=== PATIENT | male | born 1965 | race Caucasian/White ===

== ENCOUNTER → 2016-10-08 | Outpatient (CLI) | payer OTHER ==
[~2016-10-08] MED LIST: ACET-1311 PO; BISA10SU38 PR; CEPH500C2 PO; CITA20TA9 PO; CMD/25 PO; CMD25 PO; CTP/1 PO; FAMO20TA11 PO; FOLIC ACID PO; LEVA45AE INH; LISI-725 PO; MOML PO; OXY IR PO; OXYC30TA PO; POLY335019 PO; QUET1TAB37 PO; SENN-61 PO; SODIENE PR; VIT B PO
--- NOTE | 2016-10-08 13:41 | DIAGNOSTIC IMAGING REPORT ---
VIDEO SWALLOW STUDY CLINICAL HISTORY: Pharyngeal dysphagia. COMPARISON STUDY: No priors. Fluoroscopy time: 1.8 minutes. FINDINGS: Fluoroscopic guidance was provided to the Department of Speech Pathology in performing a video swallow study. The patient consumed barium-impregnated pudding, cracker with paste, nectar thick liquid, and thin barium while the swallowing mechanism was observed in real-time. Silent aspiration was seen with thin barium. No penetration or aspiration was seen with the remaining sampled textures. Extensive cervical spinal fusion hardware is noted. IMPRESSION: 1. Silent aspiration was seen with thin barium. 2. No penetration or aspiration was seen with the remaining sampled textures. 3. See dedicated Speech Pathology report for detailed findings and recommendations. Dictated: 10/08/2016 1:10 PM Transcribed: 10/08/2016 1:40 PM BELLE_New Electronically signed by: Eddie Austin M.D. 10/08/2016 2:10 PM Dictated Date/Time: 10/08/2016 1:10 PM
--- NOTE | 2016-10-08 16:59 | SWALLOWING EVALUATION ---
HISTORY: This 51 year old man, from [facility], was referred for a video swallow study at [facility] in order to rule out aspiration and identify the safest consistencies for optimal oral intake. PMH is significant for: Acute and chronic respiratory failure, septic pulmonary embolism, hypertension, discitis of the cervicothoracic region, depression, osteomyelitis of the vertebrae, and endocarditis. The patient reports having been intubated s/p "an infection through my whole body" ~ 8 weeks ago. He is s/p trach and currently uses a PEG tube for meeting his nutrition and hydration needs. Trach site is fully healed, and he reports having the trach removed at least 2 weeks ago. He reports having significant swallowing difficulties following these events and had a previous speech therapy with [facility] and a video swallow study (patient was uncertain where the study took place) stating he failed. Despite being NPO, he admits he has been "sneaking" food and liquid and states he has not been having any trouble swallowing as of late. PROCEDURE: The patient was seen in the Radiology Department of [facility] for the VFSS. Cursory examination of the oral cavity revealed adequate dentition. Oral motor function was wnl. The patient was seated in a wheelchair and was viewed in both the Anterior-Posterior (A-P) and Lateral planes. Volitional phonation exercises completed in the A-P plane revealed bilateral vocal fold movement and vocal intensity within functional limits. In the lateral plane, the patient was given the following boluses: 1 tsp. thin liquid barium x 2, single swallow thin liquid barium self-presented from a cup, sequential swallows of thin liquid barium self-presented from a cup and straw, 1 tsp. nectar-thick liquid barium, single swallow nectar-thick liquid barium self-presented from a cup, 1 tsp. barium pudding, and 1 club cracker coated in barium pudding. Cervical hardware was present. The patient was then repositioned into the A-P plane and given the following boluses: 1 tsp. nectar thick barium and 1 tsp. barium pudding. RESULTS: Oral Stage: Lip closure was mildly reduced with one episode of escape that did not progress past the raya boarder. The patient was able to maintain a cohesive bolus during the liquid bolus hold task. Mastication was timely and efficient. Lingual motion for bolus transport was brisk. There was trace retention lining the tongue and palate after the swallow. The initiation of the pharyngeal swallow was timely and occurred when the bolus head reached the posterior angle of the ramus. Pharyngeal Stage: Soft palate elevation was complete. Laryngeal elevation revealed partial superior movement of the thyroid cartilage and partial approximation of the arytenoids to the epiglottic base. Anterior hyoid excursion was partially reduced. Epiglottic deflection was incomplete, with instances where it did not invert past the horizontal position. Laryngeal vestibular closure was incomplete, as evidenced by a narrow column of contrast being located in the vestibule at the height of the swallow. The pharyngeal stripping wave was present yet diminished. There was partial distention and duration of the opening to the pharyngoesophageal segment (PES). Tongue base retraction was reduced, with a wide column of contrast located between the tongue base and pharyngeal wall during the swallow. There was retention located in the valleculae and pyriforms after the swallow. The patient presented with one episode of SILENT aspiration during the study. This occurred during the second teaspoon presentation of thin liquid with a bolus hold task. Verbal cues to cough on command were provided and appeared to be effective in clearing the aspiration. Episodes of small amounts of laryngeal penetration were also noted with thin liquid, without aspiration. No other laryngeal penetration/aspiration episodes were evidenced. With regard to retention, the patient would elicit a second swallow and/or use of liquid wash to clear vallecular and pyriform retention, which was effective. He was impulsive at times taking large consecutive swallows. Aspiration is attributed to the patient's generalized weakness and reduced ROM of the pharyngeal mechanism, specifically to epiglottic deflection, tongue base retraction, anterior hyoid excursion, and PES opening. Esophageal stage: There was complete esophageal clearance. SUMMARY/RECOMMENDATIONS: This patient presents with mild to moderate tracey-pharyngeal dysphagia. The following is recommended: 1. Advance diet to mechanical soft and thin liquids. May upgrade further to regular textures as tolerated. 2. Aspiration precautions, Straws OK. Fully upright while eating and 30 minutes after meals. 3. Safe swallow strategies: Small single sips. Alternate solids and liquids. Monitor for impulsivity. 4. Follow up [facility] services at the [facility]. Services to include carryover of diet and safe swallow strategy recommendations above, as well as completion of pharyngeal strengthening exercises (Daphney Maneuver, effortful swallows, Ananda Maneuver) for improved strength and reducing aspiration risk. A summary of the results and recommendations was discussed with the patient and treating [facility] at [facility] immediately following the study with verbal understanding. A summary of the result was also documented on the consultation record as provided by the facility, and given to the patient as well. Thank you for referral of this patient. Please contact me at if any additional information is needed.
--- NOTE | 2016-11-08 09:59 | CODING QUERY NO DIAGNOSIS ---
TREATMENT RENDERED WITHOUT A DIAGNOSIS To promote full compliance with coding requirements relating to patient care, physician participation is requested in all cases of glass wool blanket machine feeder uncertainty. Please assist us with providing a diagnosis/symptom for the test(s) below: A diagnosis/symptom was not documented on your Order. A valid diagnosis/symptom is required to bill all insurances. Please remember that we are unable to code a diagnosis of rule out, probable, possible, questionable, or suspected. Tests that require a diagnosis: * VIDEO SWALLOW DIAGNOSIS: Provider Signature: Date: Thank you Shilpa Conner [employer] Once completed, please kindly fax back to [phone] For questions please call [phone]
== END | disposition home or self-care (01) ==
LOC: C.RAD 11:13
PROVIDERS: ATTEND Internal Medicine
DX: Z01.89 Encounter for other specified special examinations (principal)

== ENCOUNTER → 2016-10-11 | Outpatient (CLI) | payer OTHER ==
[2016-10-11 08:24] LABS: HEMATOCRIT 26.2 % (42-52); MEAN CELL VOLUME 93.6 fL (80-100); MEAN CORPUSCULAR HEMOGLOBIN 31.4 pg (25-34); MEAN CORPUSCULAR HGB CONC 33.6 g/dl (32-36); MEAN PLATELET VOLUME 9.2 fL (7.4-10.4); PLATELET COUNT 163 K/uL (130-400); WHITE BLOOD COUNT 3.73 K/uL (4.8-10.8)
[2016-10-11 08:33] LABS: ALT/SGPT 77 U/L (12-78); BLOOD UREA NITROGEN 23 mg/dl (7-18); BUN/CREATININE RATIO 22.7 (10-20); CALCIUM 8.6 mg/dl (8.5-10.1); CARBON DIOXIDE 23 mmol/L (21-32); CHLORIDE 110 mmol/L (98-107); GLUCOSE 86 mg/dl (70-99); POTASSIUM 3.8 mmol/L (3.5-5.1); SODIUM 139 mmol/L (136-145)
[2016-10-11 08:35] LABS: ALB/GLOB RATIO 0.4 (0.9-2); ALKALINE PHOSPHATASE 128 U/L (45-117); AST/SGOT 50 U/L (15-37)
== END ==
LOC: C.LABCC 07:56
PROVIDERS: ATTEND Internal Medicine
DX: R78.81 Bacteremia (principal); B95.61 Methicillin susceptible Staphylococcus aureus infection as the cause of diseases classified elsewhere

== ENCOUNTER → 2016-10-15 | Outpatient (CLI) | payer OTHER ==
[2016-10-15 12:30] LABS: COMPLETE YES; HEMATOCRIT 27.6 % (42-52); IG% 0.8 %; LYMPH ABS # 1.28 K/uL (1.2-3.4); MEAN CELL VOLUME 97.2 fL (80-100); MEAN CORPUSCULAR HEMOGLOBIN 31.7 pg (25-34); MEAN CORPUSCULAR HGB CONC 32.6 g/dl (32-36); MEAN PLATELET VOLUME 9.1 fL (7.4-10.4); NEUT % 56.2 %; PLATELET COUNT 180 K/uL (130-400); RED BLOOD COUNT 2.84 M/uL (4.7-6.1)
[2016-10-15 12:59] LABS: FERRITIN 518.2 ng/ml (8.0-388.0)
== END ==
LOC: C.LABCC 12:53
PROVIDERS: ATTEND Internal Medicine
DX: D64.9 Anemia, unspecified (principal)

== ENCOUNTER → 2016-10-18 | Outpatient (CLI) | payer OTHER ==
[~2016-10-18] MED LIST changes: +OPTIRAY 320 IV PRN
--- NOTE | 2016-10-18 08:12 | DIAGNOSTIC IMAGING REPORT ---
CT OF THE CERVICAL SPINE WITH CONTRAST CLINICAL HISTORY: Follow up spinal cord abscess. COMPARISON STUDY: MRI of the cervical spine January 06, [address] March 16, 2008. TECHNIQUE: Axial images of the cervical spine were obtained following intravenous injection of 91 cc of Optiray 320 IV. Sagittal and coronal reconstructions were viewed. FINDINGS: There are postsurgical findings consistent with a C3-C7 posterior fusion with lateral bone graft material and C4-C5 corpectomy. There is partial incorporation of the strut graft at the corpectomy level. Slight irregularity along the inferior endplate of C3 is likely postsurgical. Evaluation of the central canal and neural foramen is suboptimal given CT technique, particularly given artifact from the hardware. However, no epidural abnormality is identified by CT. Central canal is grossly patent. Disc space narrowing and osteophytosis is noted at C6-C7. There is no prevertebral edema. No abscess is identified within the neck. Epiglottis is normal. No fracture or suspicious lesion is identified within the cervical spine. Visualized portions of the lung apices demonstrate a few small nodular opacities with mild groundglass opacity. In addition, note is made of cortical irregularity with bony erosion of the anterior left first rib at the costochondral junction. There is an associated 1.7 x 1.4 cm rim-enhancing fluid collection shown on image 623 of 650. There is adjacent soft tissue thickening/induration. IMPRESSION: 1. Status post C3-C7 posterior fusion and C4-C5 corpectomy with placement of strut graft. Partial incorporation of the graft. 2. No acute abnormality within the cervical spine by CT. No epidural abnormality identified although sensitivity diminished given CT technique and artifact from surgical hardware. 3. Bony erosion of the anterior left first rib at the costochondral junction with an associated 1.7 x 1.4 cm rim-enhancing fluid collection which favors an abscess. Chronicity of these findings is difficult to determine on this exam but likely acute to subacute. Electronically signed by: Gabo Lozano M.D. 10/18/2016 8:11 AM Dictated Date/Time: 10/18/2016 7:51 AM
== END | disposition home or self-care (01) ==
LOC: C.CTS 06:56
PROVIDERS: ATTEND Specialist
DX: G06.1 Intraspinal abscess and granuloma (principal); R93.7 Abnormal findings on diagnostic imaging of other parts of musculoskeletal system; Z98.1 Arthrodesis status

== ENCOUNTER → 2016-10-20 | Outpatient (CLI) | payer OTHER ==
[~2016-10-20] MED LIST changes: -OPTIRAY 320 IV PRN
[2016-10-20 08:40] LABS: ALT/SGPT 37 U/L (12-78); BLOOD UREA NITROGEN 16 mg/dl (7-18); BUN/CREATININE RATIO 14.4 (10-20); CALCIUM 8.4 mg/dl (8.5-10.1); CARBON DIOXIDE 23 mmol/L (21-32); CHLORIDE 110 mmol/L (98-107); GLUCOSE 89 mg/dl (70-99); POTASSIUM 4.4 mmol/L (3.5-5.1); SODIUM 140 mmol/L (136-145)
[2016-10-20 08:43] LABS: ALB/GLOB RATIO 0.5 (0.9-2); ALKALINE PHOSPHATASE 119 U/L (45-117); AST/SGOT 46 U/L (15-37)
== END | disposition home or self-care (01) ==
LOC: C.LABCC 10:00
PROVIDERS: ATTEND Internal Medicine
DX: I38 Endocarditis, valve unspecified (principal); R78.81 Bacteremia; B95.61 Methicillin susceptible Staphylococcus aureus infection as the cause of diseases classified elsewhere

== ENCOUNTER → 2016-10-21 | Outpatient (CLI) | payer OTHER ==
[2016-10-21 10:18] LABS: ALT/SGPT 110 U/L (12-78); AST/SGOT 62 U/L (15-37); BLOOD UREA NITROGEN 18 mg/dl (7-18); BUN/CREATININE RATIO 16.6 (10-20); CALCIUM 9.1 mg/dl (8.5-10.1); CARBON DIOXIDE 24 mmol/L (21-32); CHLORIDE 105 mmol/L (98-107); GLUCOSE 114 mg/dl (70-99); POTASSIUM 4.3 mmol/L (3.5-5.1); SODIUM 136 mmol/L (136-145)
[2016-10-21 10:19] LABS: ALB/GLOB RATIO 0.5 (0.9-2); ALKALINE PHOSPHATASE 144 U/L (45-117)
== END | disposition home or self-care (01) ==
LOC: C.LABCC 09:18
PROVIDERS: ATTEND Internal Medicine
DX: M46.22 Osteomyelitis of vertebra, cervical region (principal)

== ENCOUNTER → 2016-10-23 | Outpatient (CLI) | payer OTHER ==
[2016-10-23 08:35] LABS: HEMATOCRIT 25.6 % (42-52); LYMPH % 31.5 %; LYMPH ABS # 1.23 K/uL (1.2-3.4); MEAN CELL VOLUME 99.6 fL (80-100); MEAN CORPUSCULAR HEMOGLOBIN 33.9 pg (25-34); MONO % 9.7 %; NEUT % 57.8 %; PLATELET COUNT 172 K/uL (130-400); RED BLOOD COUNT 2.57 M/uL (4.7-6.1)
[2016-10-23 09:09] LABS: COMPLETE YES; SPHEROCYTE 1+
== END ==
LOC: C.LABCC 08:00
PROVIDERS: ATTEND Internal Medicine
DX: D64.9 Anemia, unspecified (principal)

== ENCOUNTER → 2016-10-23 | Outpatient (CLI) | payer OTHER ==
[~2016-10-23] MED LIST changes: +OPTIRAY 320 IV PRN
--- NOTE | 2016-10-23 14:12 | DIAGNOSTIC IMAGING REPORT ---
LUMBAR SPINE CT WITH INTRAVENOUS CONTRAST HISTORY: Low back pain. SPINAL CORD ABSCESS TECHNIQUE: Multiaxial CT images of the lumbar spine were performed following the use of intravenous contrast. COMPARISON STUDY: Lumbar spine radiograph 04/27/2011. FINDINGS: Mild anterior wedging within the superior endplate of L1. This is new from the prior study and is consistent with a compression deformity. This is technically age indeterminate but likely old. No adjacent paravertebral edema to suggest an acute process. No definite acute fractures identified within the lumbar spine. Patchy areas of sclerosis throughout the majority of the L4 vertebral body with focal areas of cortical erosion along the anterior cortex and anterior inferior endplate. Small focal cortical erosion seen within the anterior inferior corner of the L3 vertebral body. Patchy areas of sclerosis and mild endplate irregularity at the L5-S1 level. There are severe disc space narrowing at L5-S1, unchanged. The remaining disc spaces are preserved. Mild paravertebral edema/inflammatory change seen from the L3-S1 levels. Subtle decreased density within the left psoas muscle at these levels may be due to mild edema. There are no paraspinal loculated fluid collections to suggest an abscess. Evaluation for a fluid collection within the central canal is essentially nondiagnostic given the CT technique. However, no definite fluid collections or masses suspected. There is an 11 x 6 x 5 mm focal calcification posterior to the S1 vertebral body. This favors a calcified left paracentral disc extrusion from the L5-S1 level. This abuts the transiting left S1 nerve root and results in mild left-sided central canal narrowing. There is also a broad-based posterior disc bulge at the L5-S1 level. There is moderate bilateral neural foraminal narrowing at L5-S1. IMPRESSION: 1. Mild superior endplate compression deformity at L1. This is technically age indeterminate but likely old. 2. Mild paravertebral edema/inflammatory change from the L3-S1 levels. There is associated patchy sclerosis within the L4 vertebral body with focal areas of cortical erosion within the anterior aspect of the L3 and L4 vertebral bodies as described above. This is consistent with an age-indeterminate osteomyelitis. No paraspinal loculated fluid collections to suggest an abscess. 3. Severe disc space narrowing with endplate irregularity at L5-S1. The endplate irregularity is nonspecific and could be due to long-standing degenerative change or additional site of a age-indeterminate discitis/osteomyelitis given the surrounding paravertebral inflammatory change. 4. Mild edema within the left psoas muscle without a loculated fluid collection to suggest an abscess. 5. 11 x 6 x 5 mm left paracentral calcified disc extrusion at L5-S1 which compresses the transiting left S1 nerve root. No additional epidural abnormalities identified although sensitivity is diminished given CT technique. Electronically signed by: Angel Granado M.D. 10/23/2016 2:11 PM Dictated Date/Time: 10/23/2016 1:56 PM
== END | disposition home or self-care (01) ==
LOC: C.CTS 13:19
PROVIDERS: ATTEND Specialist
DX: M46.20 Osteomyelitis of vertebra, site unspecified (principal)

== ENCOUNTER → 2016-10-24 | Outpatient (CLI) | payer OTHER ==
[~2016-10-24] MED LIST changes: -OPTIRAY 320 IV PRN
[2016-10-24 09:00] LABS: ALKALINE PHOSPHATASE 128 U/L (45-117); ALT/SGPT 96 U/L (12-78); AST/SGOT 53 U/L (15-37)
== END ==
LOC: C.LABCC 08:20
PROVIDERS: ATTEND Internal Medicine
DX: R70.0 Elevated erythrocyte sedimentation rate (principal)

== ENCOUNTER → 2016-10-25 | Outpatient (CLI) | payer OTHER | LOC: C.LABCC 07:53 | PROVIDERS: ATTEND Internal Medicine | DX: R70.0 Elevated erythrocyte sedimentation rate (principal) ==

== ENCOUNTER → 2016-10-31 | Outpatient (CLI) | payer OTHER ==
[2016-10-31 08:36] LABS: HEMATOCRIT 28.3 % (42-52); MEAN CELL VOLUME 99.6 fL (80-100); MEAN CORPUSCULAR HEMOGLOBIN 33.1 pg (25-34); MEAN CORPUSCULAR HGB CONC 33.2 g/dl (32-36); MEAN PLATELET VOLUME 9.1 fL (7.4-10.4); PLATELET COUNT 199 K/uL (130-400); RED BLOOD COUNT 2.84 M/uL (4.7-6.1); WHITE BLOOD COUNT 3.75 K/uL (4.8-10.8)
== END | disposition home or self-care (01) ==
LOC: C.LABCC 08:15
PROVIDERS: ATTEND Internal Medicine
DX: G06.1 Intraspinal abscess and granuloma (principal)

== ENCOUNTER → 2016-11-07 | Outpatient (CLI) | payer OTHER ==
[2016-11-07 09:03] LABS: HEMATOCRIT 31.3 % (42-52); MEAN CELL VOLUME 101.6 fL (80-100); MEAN CORPUSCULAR HEMOGLOBIN 33.8 pg (25-34); MEAN CORPUSCULAR HGB CONC 33.2 g/dl (32-36); PLATELET COUNT 184 K/uL (130-400); RED BLOOD COUNT 3.08 M/uL (4.7-6.1); WHITE BLOOD COUNT 4.36 K/uL (4.8-10.8)
== END ==
LOC: C.LABCC 07:43
PROVIDERS: ATTEND Internal Medicine
DX: G06.1 Intraspinal abscess and granuloma (principal)

== ENCOUNTER → 2016-11-11 | Day surgery (SDC) | payer OTHER ==
[2016-11-07 10:09] VITALS: Ht 185.4 cm; Wt 76.4 kg
[~2016-11-11] VITALS: Ht 185.4 cm; Wt 76.4 kg
[~2016-11-11] MED LIST changes: -CMD/25 PO; -CMD25 PO; -FOLIC ACID PO; -LISI-725 PO; -OXYC30TA PO; -VIT B PO
--- NOTE | 2016-11-11 14:28 | Endo History and Physical ---
History & Physical Date of Service: Nov 11, 2016. Chief Complaint: PEG tube removal Referring Physician: Dr. Keller History of Present Illness 51 yo CM who presents for PEG tube removal, as it is no longer needed. Past Surgical History Hx Cardiac Surgery: No Hx Internal Defibrillator: No Hx Pacemaker: No Hx Abdominal Surgery: No Hx Post-Op Nausea and Vomiting: No Hx Cancer Surgery: No Hx Thoracic Surgery: No (HAD TRACH AND THEN REMOVED) Hx Orthopedic: Yes (C3-6 FUSION) Hx Urinary Tract Surgery: No Family History None Social History Smoking Status: Unknown if Ever Smoked Hx Substance Use: Yes (HEROIN USE WAS IN REHAB) Hx Alcohol Use: No Allergies Coded Allergies: Naproxen (Unverified Allergy, Mild, SWELLING, 10/07/11) Ofloxacin (Verified Allergy, Unknown, PER RECORD, 11/07/16) Oxacillin (Verified Allergy, Unknown, PER RECORD, 11/07/16) Current Medications Reported Home Medications Medications Dose Route/Sig Max Daily Dose Days Date Category Dose Instructions [Oxy Ir] 10 Mg PO UD 11/07/16 Reported ONE TAB Q6H PRN MODERATE PAIN OR TWO TAB Q6H PRN SEVERE PAIN Fleet Enema (Sodium Phosphate/Biphosphate) Violeta 1 Ea NC UD 11/07/16 Reported IF NO BM ON DAY 4 Dulcolax (Bisacodyl) 10 Mg Sup 1 Supp NC UD 11/07/16 Reported IF NO BM ON DAY 3 Milk Of Magnesia (Magnesium Hydroxide) 30 Ml Susp 30 Ml PO UD 11/07/16 Reported IF NO BM ON DAY 3 Tylenol (Acetaminophen) 325 Mg Tab 650 Mg PO QID PRN 11/07/16 Reported Keflex (Cephalexin Monohydrate) 500 Mg Cap 500 Mg PO QID 11/07/16 Reported STARTED 10/31/16 Catapres (Clonidine Hcl) 0.1 Mg Tab 0.1 Mg PO TID 11/07/16 Reported Senokot (Senna) 8.6 Mg Tab 2 Tab PO HS 11/07/16 Reported Seroquel (Quetiapine Fumarate) 300 Mg Tab 300 Mg PO HS 11/07/16 Reported Miralax (Polyethylene Glycol 3350) 1 Pow Pow 17 Gm PO QAM 11/07/16 Reported Levalbuterol Tartrate Hfa (Levalbuterol Tartrate) 45 Mcg/Act Aer 1 Dose INH BID 11/07/16 Reported NEBULIZER Pepcid (Famotidine) 20 Mg Tab 20 Mg PO BID 11/07/16 Reported Celexa (Citalopram Hydrobromide) 20 Mg Tab 20 Mg PO QAM 11/07/16 Reported Vital Signs Weight (Kilograms): 76.36 Height (Feet): 6 Height (Inches): 1 Date Time Temp Pulse Resp B/P (MAP) Pulse Ox O2 Delivery O2 Flow Rate FiO2 11/11/16 14:06 36.4 85 20 116/85 (95) 100 Room Air Physical Exam General Appearance: WD/WN, no apparent distress Respiratory/Chest: Auscultation: breath sounds normal Cardiovascular: Heart Auscultation: RRR Abdomen: Bowel Sounds: normal Inspection & Palpation: soft, non-distended, no tenderness, guarding & rebound Assessment and Plan Assessment: 51 yo CM who presents for PEG tube removal, as it is no longer needed. Plan: Proceed with PEG tube removal.
--- NOTE | 2016-11-11 14:31 | Discharge Instructions ---
Endoscopy Patient Instructions Date / Procedure Performed Nov 11, 2016. Percutaneous Endoscopic Gastrotomy (P.E.G) Tube Replacement / Removal Allergy Information Coded Allergies: Naproxen (Unverified Allergy, Mild, SWELLING, 10/07/11) Ofloxacin (Verified Allergy, Unknown, PER RECORD, 11/07/16) Oxacillin (Verified Allergy, Unknown, PER RECORD, 11/07/16) Home Medication List Scheduled Bisacodyl (Dulcolax), 1 SUPP OR UD Cephalexin Monohydrate (Keflex), 500 MG PO QID Citalopram Hydrobromide (Celexa), 20 MG PO QAM Clonidine Hcl (Catapres), 0.1 MG PO TID Famotidine (Pepcid), 20 MG PO BID Levalbuterol Tartrate (Levalbuterol Tartrate Hfa), 1 DOSE INH BID Magnesium Hydroxide (Milk Of Magnesia), 30 ML PO UD Polyethylene Glycol 3350 (Miralax), 17 GM PO QAM Quetiapine Fumarate (Seroquel), 300 MG PO HS Senna (Senokot), 2 TAB PO HS Sodium Phosphate/Biphosphate (Fleet Enema), 1 EA OR UD [Oxy Ir], 10 MG PO UD Scheduled PRN Acetaminophen (Tylenol), 650 MG PO QID PRN for Pain or Fever Discharge Date / Findings Nov 11, 2016. Successful removal of PEG tube Provider Instructions Activity Recommendations * Resume regular activity . Diet Recommendations * Resume previous diet. * Advance diet as tolerated. Medication Instructions * Resume usual medications. * Always flush the tube with warm water after administration of medication. Follow-Up Information Follow-up with PCP as scheduled Anesthesia Information What You Should Know You have had a procedure that required some medicine to reduce anxiety and discomfort. This treatment is called moderate sedation. After receiving the treatment, you may be sleepy, but you will be able to breathe on your own. The effects of the treatment may last for several hours. Follow these instructions along with Activity/Diet recommendations noted above: * Do NOT do anything where dizziness or clumsiness would be dangerous. * Rest quietly at home today, then you can be up and about tomorrow. * Have a responsible person stay with you the rest of today. * You may have had an I.V. today. If so, you may take the dressing off later today. Symptoms Additional Instructions If you experience any of the following symptoms after your procedure seek medical attention at your closest Emergency Room and/or call your primary care physician immediately: * Severe abdominal pain or bloating * Fever greater than 101.1 degrees within 24 hours after the procedure * Uncontrolled nausea and vomiting Avoid all tobacco products. If you need help to stop smoking, call [employer] FREE QUIT LINE at . Your discharge instructions were prepared by provider Geremias Pagan. Patient Instructions Signature Page Zev Morfin Patient (or Guardian) Signature/Date: I have read and understand the instructions given to me by my caregivers. Caregiver/RN/Doctor Signature/Date: The above-named patient and/or guardian has received patient instructions on this date. + Original Patient Signature Page (only) stays with chart. Please make copy for patient.
[2016-11-11 14:34] VITALS: BP 122/80; PULSE 80; TEMP 36.1; O2SAT 100
--- NOTE | 2016-11-11 17:03 | GI REPORT ---
Procedure Date: 11/11/2016 5:00 PM Procedure: Non-endoscopic Tube Procedure Indications: Remove PEG tube (no longer needed) Complications: No immediate complications. Estimated Blood Loss: Estimated blood loss: none. Procedure: After obtaining informed consent, the site was prepped and the procedure was performed. The procedure was accomplished without difficulty. The patient tolerated the procedure well. Findings: The patient no longer requires the gastrostomy tube. The gastrostomy tube was no longer necessary and required removal. The existing PEG site was cleaned. The existing PEG balloon was deflated and by using traction, removal was easily accomplished. Impression: - The gastrostomy tube was removed because it was no longer necessary. - No specimens collected. Recommendation: - Advance diet as tolerated. Geremias Campos Case, DO 11/11/2016 5:02:33 PM This report has been signed electronically. Note Initiated On: 11/11/2016 5:00 PM I attest to the content of the Intraoperative Record and orders documented therein, exceptions below
== END | disposition home or self-care (01) ==
LOC: C.GI 13:47
PROVIDERS: ATTEND Internal Medicine
DX: G06.1 Intraspinal abscess and granuloma (principal); Z98.1 Arthrodesis status; F11.21 Opioid dependence, in remission

== ENCOUNTER → 2016-11-21 | Outpatient (CLI) | payer OTHER ==
[~2016-11-21] MED LIST changes: +OPTIRAY 320 IV PRN
--- NOTE | 2016-11-21 09:21 | DIAGNOSTIC IMAGING REPORT ---
CT CERVICAL SPINE WITH CT DOSE: CLINICAL HISTORY: SPINAL ABSCESS TECHNIQUE: The patient was scanned in a dynamic helical fashion during intravenous administration 118 cc of Optiray 320. A dose lowering technique was utilized adhering to the principles of ALARA. COMPARISON STUDY: 10/18/2016 FINDINGS: At the lung apices, there is mild septal thickening. There is evidence for tracheomalacia. Within the neck, there is no pathologic adenopathy. There is artifact secondary to spinal hardware. There are postsurgical changes of a C4 and C5 corpectomy with a bone graft. There is a posterior fusion with screws at the C3-C4 C5-C6 and C7 levels with adjoining spinal rods. Erosive changes again involve the anterior aspect of the left first rib. There is a decreasing fluid collection measuring 11 mm. IMPRESSION: 1. Postsurgical changes at the C3-C7 posterior spinal fusion with a C4-5 corpectomy. 2. 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 Persistent erosive/destructive changes involving the anterior aspect of the left first rib, with a associated rim-enhancing fluid collection which appears smaller than on the preceding study currently measuring 11 mm. Electronically signed by: Yasmany Roberson M.D. 11/21/2016 9:19 AM Dictated Date/Time: 11/21/2016 9:10 AM
--- NOTE | 2016-11-21 09:32 | DIAGNOSTIC IMAGING REPORT ---
LUMBAR SPINE WITH CLINICAL HISTORY: 51 years-old Male with SPINAL ABSCESS. Follow-up study to assess lumbar abscess. TECHNIQUE: Multiple axial CT images of the lumbar spine were obtained with the use of intrathecal contrast. Coronal and sagittal reformats were generated from the axial data set and submitted for review. A dose lowering technique was utilized adhering to the principles of ALARA. COMPARISON: CT lumbar spine 10/23/2016. FINDINGS: 20% anterior endplate compression deformity of L1 is unchanged without retropulsion, likely chronic. Bones are mildly demineralized. No acute fracture or subluxation is identified. Degenerative changes are noted as below is seen prominently of mild and mild to moderate facet arthropathy. Severe intervertebral disc space narrowing at L5-S1. Unchanged appearance of minimal cortical erosions involving the anteroinferior endplate of L3 and anteroinferior endplate of L4 as previously described. Patchy areas of sclerosis are noted within the L4 vertebral body. No new erosive changes are identified. Minimal paravertebral edema is again seen extending from L3-S1 with minimal inflammatory stranding surrounding the left psoas musculature. No loculated abscess collection or drainable fluid collections identified. No epidural abscess. Nonobstructing 6 x 6 mm calculus of the inferior pole left kidney is incidentally noted. There is moderate mixed plaquing of the aorta and iliac vasculature. Moderate stool burden. Colonic diverticulosis without evidence of diverticulitis. No abnormal enhancement identified. T12-L1: Mild posterior intervertebral disc space narrowing. No evidence of disc bulge or central canal stenosis is seen. The neural foramina appear patent bilaterally. L1-L2: No evidence of disc bulge or central canal stenosis is seen. The neural foramina appear patent bilaterally. Mild facet arthropathy. L2-L3: No evidence of disc bulge or central canal stenosis is seen. The neural foramina appear patent bilaterally. Mild facet arthropathy. L3-L4: Small broad-based posterior disc bulge, ligamentum flavum thickening and mild to moderate facet arthropathy is present with mild bilateral foraminal narrowing. Central canal is generally patent. No significant change from prior. L4-L5: Minimal posterior intervertebral disc space narrowing with mild to moderate facet arthropathy and ligamentum flavum thickening. No central canal narrowing. There is mild inferior foraminal stenosis on the left. The right foramen is patent. L5-S1: Severe intervertebral disc space narrowing with large posterior disc osteophyte complex extending posteriorly 7 mm. Partially calcified disc extrusion is noted extending caudally 11 mm. These findings again, as mild central canal, moderate left lateral recess, severe left foraminal narrowing and moderate to severe right foraminal narrowing. Again, this calcified extrusion abuts and displaces the left S1 nerve root, unchanged. IMPRESSION: 1. Stable exam with persistent mild erosive changes of the L3 and L4 vertebral bodies as above with irregular sclerosis of the L4 vertebral body suggesting remote osteomyelitis. Mild paravertebral soft tissue stranding is again seen extending from L3-S1 with additional stranding surrounding the left psoas musculature. No focal abscess or drainable collections identified. 2. Severe intervertebral disc space narrowing at L5-S1 with posterior disc osteophyte complex and calcified disc extrusion as above, unchanged from prior. 3. Additional discogenic degenerative changes are seen at L3-L4 and L4-L5. 4. Nonobstructing 6 mm calculus of the inferior pole left kidney. 5. Colonic diverticulosis. The above report was generated using voice recognition software. It may contain grammatical, syntax or spelling errors. Electronically signed by: Cabrera Mcgowan M.D. 11/21/2016 9:31 AM Dictated Date/Time: 11/21/2016 9:18 AM
== END | disposition home or self-care (01) ==
LOC: C.CTS 07:58
PROVIDERS: ATTEND Internal Medicine
DX: G06.1 Intraspinal abscess and granuloma (principal); Z98.890 Other specified postprocedural states; M51.36 Other intervertebral disc degeneration, lumbar region; M25.78 Osteophyte, vertebrae; N20.0 Calculus of kidney; K57.32 Diverticulitis of large intestine without perforation or abscess without bleeding

== ENCOUNTER → 2016-11-28 | Outpatient (CLI) | payer OTHER ==
[~2016-11-28] MED LIST changes: -OPTIRAY 320 IV PRN
[2016-11-28 08:21] LABS: HEMATOCRIT 31.5 % (42-52); MEAN CORPUSCULAR HEMOGLOBIN 34.3 pg (25-34); MEAN CORPUSCULAR HGB CONC 34.3 g/dl (32-36); MEAN PLATELET VOLUME 9.1 fL (7.4-10.4); PLATELET COUNT 179 K/uL (130-400); RED BLOOD COUNT 3.15 M/uL (4.7-6.1); WHITE BLOOD COUNT 4.44 K/uL (4.8-10.8)
== END ==
LOC: C.LABCC 08:02
PROVIDERS: ATTEND Internal Medicine
DX: G06.1 Intraspinal abscess and granuloma (principal)

== ENCOUNTER 2017-02-28 19:07 | Emergency (ER) | payer OTHER ==
[~2017-02-28] VITALS: Ht 182.9 cm; Wt 84.0 kg
[2017-02-28 19:11] VITALS: BP 167/100; PULSE 99; TEMP 36.3; O2SAT 99; Ht 182.9 cm; Wt 84.0 kg
[2017-02-28] MEDS ORDERED: CLIN300C2 PO (19:28)
[2017-02-28] MEDS ORDERED: NYSCR30 EXT (19:28)
[2017-02-28] MEDS ORDERED: OXYC20TA50 PO (19:28)
[2017-02-28] MEDS ORDERED: OXYC-609 PO (19:55)
--- NOTE | 2017-02-28 21:01 | EMERGENCY ROOM VISIT NOTE ---
History First contact with patient: 19:17 Chief Complaint: MEDICATION REFILL REQUEST Stated Complaint: BACK PAIN History of Present Illness The patient is a 51 year old white male male who presents to the Emergency Room with complaints of running out of his medications. Patient states he had a spinal abscess and required surgery at [facility] in [place]. He states he was in the ICU for several weeks and was more or less paralyzed. He was sent to [facility] for rehabilitation in recovery. He states he has been through physical therapy, occupational therapy, and speech therapy, and has recovered well. He remains with chronic pain in his back. He states no one will do surgery on his lower back out of fear of further infection, paralysis, or failed surgery. Because of this, he has chronic pain. He takes oxycodone 20 mg every 6 hours and has done so for months. He was receiving this while staying at [facility]. He states he was discharged on February 21 and received a prescription at the time of discharge. He has now run out. He states he did try to call his PCP in [place] for a new prescription but that provider was unwilling to write for narcotics. He has not filled any of his other nonnarcotic prescriptions yet. He states he will not receive his new access card until Friday. His daughter accompanies him today. No new injury. Review of Systems REVIEW OF SYSTEM: HEENT: No dizziness, visual problems, hearing loss, or tinnitus. There is no difficulty swallowing and no oral lesions are present. PULMONARY: No cough, shortness of breath, sputum production or hemoptysis. CARDIOVASCULAR: No chest pain, palpitations, shortness of breath or peripheral edema. GASTROINTESTINAL: No diarrhea, constipation, nausea, vomiting, or abdominal pain. GENITOURINARY: No dysuria, frequency, urgency or nocturia. NEUROLOGIC: No weakness, muscle tenderness, epilepsy or history of neurological problems. MUSCULOSKELETAL: No history of joint tenderness/swelling. Positive history of arthritis and arthralgias. SKIN: No rashes or lesions. PSYCHIATRIC: Positive history of anxiety and depression. ENDOCRINE: No history of diabetes, thyroid disorders, or abnormal hair growth. Past Medical/Surgical History Medical Problems: (1) Closure of patent foramen ovale (2) Patent foramen ovale Previous surgeries: Cervical spine abscess drainage infusion, left pelvis abscess drainage Medical history: Significant for hypertension, anxiety, depression, chronic pain , GERD, and spinal abscess Family History Noncontributory. Social History Smoking Status: Current Every Day Smoker Smokeless Tobacco Use: No Alcohol Use: none Drug Use: other (chronic narcotic use) Marital Status: Housing Status: lives with family Occupation Status: unemployed Current/Historical Medications Scheduled Cephalexin Monohydrate (Keflex), 500 MG PO QID Citalopram Hydrobromide (Celexa), 20 MG PO QAM Clindamycin Hcl (Cleocin), 600 MG PO PRN UD Clonidine Hcl (Catapres), 0.1 MG PO TID Famotidine (Pepcid), 20 MG PO BID Nystatin (Nystatin Cream), 0 EXT UD Oxycodone HCl (Oxycodone HCl), 1 TAB PO Q6 Oxycodone Hcl (Oxycontin), 20 MG PO Q12 Quetiapine Fumarate (Seroquel), 300 MG PO HS Senna (Senokot), 2 TAB PO HS Scheduled PRN Acetaminophen (Tylenol), 650 MG PO QID PRN for Pain or Fever Physical Exam Vital Signs Date Time Temp Pulse Resp B/P (MAP) Pulse Ox O2 Delivery O2 Flow Rate FiO2 02/28/17 19:11 36.3 99 20 167/100 99 Room Air Physical Exam Gen.: Well-developed, well-nourished, middle-aged white male, in obvious discomfort. No acute distress. Sitting on a bed. Alert and oriented. Skin:Warm and dry with good turgor. No rashes or lesions. No ecchymosis or erythema. The patient is not diaphoretic. No abrasions. Well-healed surgical scars present over his cervical and upper thoracic spine as well as his left anterior pelvis Musculoskeletal: Gross motor function of the upper and lower extremities is intact and unremarkable. Ambulatory with a normal gait. Medical Decision & Procedures ED Course Patient was educated regarding today's findings. Conservative care measures were discussed. I did review his prescriptions from [facility] that have not been filled. I also reviewed his discharge paperwork. I did speak with his pharmacist in [place] who has filled many of his narcotic prescriptions. I did check the PDMP. I had a discussion with the patient and his daughter regarding filling narcotic prescriptions and coming to the ED to fill chronic medications. I did provide him with a prescription for 9 tablets of oxycodone 5 mg to be used one tablet every 6 hours. He may supplement with Tylenol. He may talk with Dr. Alvarez's office next week or his PCP in [place] to discuss further narcotics and pain management referral. Medical Decision Possibility of increasing infection, new injury, and narcotic seeking behavior were considered [place] Drug Monitoring Program Search Results: patient reviewed within database (extensive prescriptions for oxycodone 10 mg, last filled February 24) Medication Reconcilliation Current Medication List: was personally reviewed by me Blood Pressure Screening Patient's blood pressure: Normal blood pressure Impression Primary Impression: Encounter for medication refill Departure Information Dispostion Home / Self-Care Condition FAIR Prescriptions Oxycodone HCl (Oxycodone HCl) 5 Mg Tab 1 TAB PO Q6 for Pain, #9 Prov: Yandel Yusuf,P.A. 02/28/17 Referrals Kev Alvarez M.D. Forms WORK / SCHOOL INSTRUCTIONS, HOME CARE DOCUMENTATION FORM, IMPORTANT VISIT INFORMATION Patient Instructions My [facility] Additional Instructions Call your PCP to discuss pain management referral You may also call Dr. Alvarez's office to discuss any further prescriptions Fill partial prescriptions for your other medications this weekend, and you may fill the rest on Friday Oxycodone 1 tablet every 6 hours as needed for pain control
== END 2017-02-28 20:04 | disposition home or self-care (01) ==
LOC: C.EDB 19:10 → C.EDD 20:04
DX: Z76.0 Encounter for issue of repeat prescription (principal); I10 Essential (primary) hypertension; F41.9 Anxiety disorder, unspecified; F32.9 Major depressive disorder, single episode, unspecified; G89.29 Other chronic pain; K21.9 Gastro-esophageal reflux disease without esophagitis; M46.20 Osteomyelitis of vertebra, site unspecified; F17.210 Nicotine dependence, cigarettes, uncomplicated; Z79.899 Other long term (current) drug therapy

== ENCOUNTER 2017-04-07 18:33 | Emergency (ER) | payer OTHER ==
[~2017-04-07] VITALS: Ht 193 cm; Wt 89.4 kg
[~2017-04-07 18:33] MED LIST changes: -BISA10SU38 PR; +CLIN300C2 PO; -LEVA45AE INH; -MOML PO; +NYSCR30 EXT; -OXY IR PO; +OXYC-609 PO; +OXYC20TA50 PO; -POLY335019 PO; -SODIENE PR
[2017-04-07 18:56] VITALS: Ht 193 cm; Wt 89.4 kg
[2017-04-07] MEDS ORDERED: SULF800T23 PO (19:40)
[2017-04-07] MEDS ORDERED: CEPH500C PO (19:40)
[2017-04-07] MEDS ORDERED: SEPTRA DS HOME PACK 1 EA VIAL PO ONE (19:45)
[2017-04-07] MEDS ORDERED: CEPHALEXIN 500MG HOME PACK 1 EA BTL PO ONE (19:45)
[2017-04-07 19:52] VITALS: BP 157/100; PULSE 80; TEMP 36.8; O2SAT 98
--- NOTE | 2017-04-08 00:08 | EMERGENCY ROOM VISIT NOTE ---
History First contact with patient: 19:26 Chief Complaint: SKIN PROBLEM Stated Complaint: POSSIBLE ABCESS ON SIDE History of Present Illness The patient is a 51 year old male who presents to the Emergency Room with complaints of increased swelling to his left side lower abdomen. The patient is concerned for abscess or infection in this area as this has occurred in the past. He states that he had an extensive intra-abdominal infection about one year ago where he required a surgical clean out and several months worth of antibiotics. He has previously followed in [place] with this, and has been taking Keflex daily for the past 8 months by mouth. The patient is concerned because the last time he had symptoms like this he ended up with an abdominal wall infection. He does not have distinct abdominal pain however, nor does he have fever or chills. He rates his overall discomfort a 4/10. Review of Systems More than 10 systems were reviewed and otherwise negative with the exception of history of present illness. Past Medical/Surgical History Medical Problems: (1) Closure of patent foramen ovale (2) Patent foramen ovale Social History Smoking Status: Current Every Day Smoker Alcohol Use: none Drug Use: other Marital Status: Housing Status: lives with family Occupation Status: unemployed Current/Historical Medications Scheduled Cephalexin Monohydrate (Keflex), 500 MG PO QID Cephalexin Monohydrate (Keflex), 500 MG PO TID Clonidine Hcl (Catapres), 0.1 MG PO TID Quetiapine Fumarate (Seroquel), 300 MG PO HS Senna (Senokot), 2 TAB PO HS Sulfamethoxazole-Trimethoprim (Bactrim Ds 800MG/160MG), 1 TAB PO BID Physical Exam Vital Signs Date Time Temp Pulse Resp B/P (MAP) Pulse Ox O2 Delivery O2 Flow Rate FiO2 04/07/17 19:52 36.8 80 18 157/100 98 04/07/17 18:56 36.8 83 18 157/91 95 Room Air Physical Exam VITALS: Vitals are noted on the nurse's note and reviewed by myself. Vital signs stable. GENERAL: Well-developed, well-nourished, white male, who is in no acute distress and resting comfortably. Patient is cooperative with the examination. HEART: Regular rate and rhythm without murmurs gallops or rubs. LUNGS: Clear to auscultation bilaterally without wheezes, rales or rhonchi. No retractions or accessory muscle use. ABDOMEN: Positive normal bowel sounds x 4. Soft, nontender, without masses or organomegaly. No guarding or rebound tenderness. There is a well-healed surgical wound in the left lower quadrant that has some very minimal tenderness along the most superior aspect of this without obvious abscess. MUSCULOSKELETAL: No muscle atrophy, erythema, or edema noted. Full range of motion without joint tenderness in all extremities. Medical Decision & Procedures Medications Administered Medications (Trade) Dose Ordered Sig/Steffi Route Start Time Stop Time Status Last Admin Dose Admin Trimethoprim/ Sulfamethoxazole (Sulfameth/ Trimeth Ds 800/ 160MG Home Pack) 1 homepack UD ONCE PO 04/07/17 19:45 2 19:46 DC 04/07/17 19:49 1 HOMEPACK Cephalexin Monohydrate (Keflex 500MG Home Pack) 1 homepack NOW ONCE PO 04/07/17 19:45 218 19:46 DC 04/07/17 19:49 1 HOMEPACK ED Course Physical exam and history were performed. Nursing notes, EMR, and Medication List were personally reviewed. Patient appears to have reports of some abdominal wall discomfort for the past one to 2 days. He evidently has an extensive history of sepsis and abscess that is causing him concern. I do not appreciate significant abscess at this time, however respecting the patient's past and will start him on a course of Bactrim. The patient needs to follow with his primary care physician or his infectious disease physician in [place]. He was otherwise invited back to the ER with any new or worsening symptoms. He was with the plan of care and rated his discomfort a 1/10 at the time of departure. The chart was completed utilizing [employer] Speech Voice Recognition Software. Grammatical errors, random word insertions, pronoun errors, and incomplete sentences are an occasional consequence of this system due to software limitations, ambient noise, and hardware issues. Any formal questions or concerns about the content, text, or information contained within the body of this dictation should be directly addressed to the provider for clarification. . Medical Decision Differential diagnosis: Etiologies such as cellulitis, abscess, MRSA infection, DVT, necrotizing fasciitis, dermatitis, drug eruption, as well as others were entertained.. Impression Primary Impression: Swelling of abdominal wall Departure Information Dispostion Home / Self-Care Condition GOOD Prescriptions Cephalexin Monohydrate (Keflex) 500 Mg Cap 500 MG PO TID for 10 Days, #30 CAP Prov: Karl Briscoe PA-C 04/07/17 Sulfamethoxazole-Trimethoprim (Bactrim Ds 800MG/160MG) 1 Tab Tab 1 TAB PO BID for 10 Days, #20 TAB Prov: Karl Briscoe PA-C 04/07/17 Forms HOME CARE DOCUMENTATION FORM, IMPORTANT VISIT INFORMATION Patient Instructions My [facility] Additional Instructions You were seen and evaluated today on an emergency basis only. This is not a substitute for, or an effort to provide, complete comprehensive medical care. It is not possible to recognize and treat all injuries or illnesses in a single emergency department visit. For this reason it is recommended that you followup with your Primary care physician for ongoing care and evaluation. Trimethoprim-Sulfamethoxazole(Bactrim DS): Take one pill twice daily for 10 days for your skin infection. All antibiotics can cause diarrhea. If this occurs and you feel worse or it does not resolve in 1-2 days follow up with your doctor or return to the Emergency Department as this could be signs of serious underlying problems. Any medication can cause an allergic reaction, stop the pills immediately and return to the ER for rash, hives, breathing difficulties, or swelling. Cephalexin(Keflex) 500mg: Take one pill 3 times daily for 10 days for your skin infection. All antibiotics can cause diarrhea. If this occurs and you feel worse or it does not resolve in 1-2 days follow up with your doctor or return to the Emergency Department as this could be signs of serious underlying problems. Any medication can cause an allergic reaction, stop the pills immediately and return to the ER for rash, hives, breathing difficulties, or swelling. You are welcome to return to the emergency department anytime with new, worsening, or concerning symptoms.
== END 2017-04-07 19:53 | disposition home or self-care (01) ==
LOC: C.EDB 18:36 → C.EDD 19:53
DX: L98.8 Other specified disorders of the skin and subcutaneous tissue (principal); R10.9 Unspecified abdominal pain; Z79.899 Other long term (current) drug therapy; Z98.890 Other specified postprocedural states; F17.210 Nicotine dependence, cigarettes, uncomplicated

== ENCOUNTER 2017-04-10 18:19 | Emergency (ER) | payer OTHER ==
[~2017-04-10] VITALS: Ht 182.9 cm; Wt 89.5 kg
[~2017-04-10 18:19] MED LIST changes: -ACET-1311 PO; +CEPH500C PO; -CITA20TA9 PO; -CLIN300C2 PO; -FAMO20TA11 PO; -NYSCR30 EXT; -OXYC-609 PO; -OXYC20TA50 PO; +SULF800T23 PO
[2017-04-10 18:57] VITALS: Ht 182.9 cm; Wt 89.5 kg
[2017-04-10 19:22] LABS: HEMATOCRIT 42.3 % (42-52); HEMOGLOBIN 14.6 g/dL (14.0-18.0); IG# 0.01 K/uL (0.00-0.02); LYMPH % 19.8 %; MEAN CELL VOLUME 97.5 fL (80-100); MEAN CORPUSCULAR HEMOGLOBIN 33.6 pg (25-34); MEAN CORPUSCULAR HGB CONC 34.5 g/dl (32-36); MEAN PLATELET VOLUME 9.4 fL (7.4-10.4); MONO % 11.6 %; MONO ABS # 0.76 K/uL (0.11-0.59); NEUT % 68.4 %; NEUT ABS # 4.48 K/uL (1.4-6.5); PLATELET COUNT 197 K/uL (130-400); RED CELL DISTRIBUTION WIDTH CV 14.3 % (11.5-14.5); RED CELL DISTRIBUTION WIDTH SD 51.2 fL (36.4-46.3); WHITE BLOOD COUNT 6.55 K/uL (4.8-10.8)
[2017-04-10] MEDS ORDERED: SODIUM CHLORIDE 0.9% 1000ML 1,000 ML IV STA (19:24)
--- NOTE | 2017-04-10 19:34 | EMERGENCY ROOM VISIT NOTE ---
History First contact with patient: 19:02 Chief Complaint: KIDNEY STONE Stated Complaint: KIDNEY STONE History of Present Illness The patient is a 51 year old male who presents to the Emergency Room with complaints of left flank pain which began at 330 this afternoon. The patient states he has not been able to urinate since 8 AM. 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 He has only had coffee since awakening at 330. He states the pain seems to be constant, but does worsen at times. The pain is mildly affected by positioning. He states "nothing helps the pain go away", but when asked what he is tried, he states nothing. The patient does have a history of kidney stones, and states this feels similar to symptoms he has had in the past. He is currently on antibiotics for an infection which occurred approximately 8 months ago. The patient denies any nausea or vomiting. He denies any recent illness including diarrhea or constipation. He denies any fever. Review of Systems A complete 10 point review of systems was reviewed with the patient with pertinent positives and negatives as per history of present illness. All else were negative. Past Medical/Surgical History Medical Problems: (1) Closure of patent foramen ovale (2) Patent foramen ovale Social History Smoking Status: Current Every Day Smoker Alcohol Use: none Drug Use: other Marital Status: Housing Status: lives with family Occupation Status: unemployed Current/Historical Medications Scheduled Cephalexin Monohydrate (Keflex), 500 MG PO QID Cephalexin Monohydrate (Keflex), 500 MG PO TID Clonidine Hcl (Catapres), 0.1 MG PO TID Quetiapine Fumarate (Seroquel), 300 MG PO HS Senna (Senokot), 2 TAB PO HS Sulfamethoxazole-Trimethoprim (Bactrim Ds 800MG/160MG), 1 TAB PO BID Tamsulosin Hcl (Flomax), 0.4 MG PO QD Scheduled PRN Oxycodone Ir (Roxicodone Ir), 1 TAB PO Q4H PRN for Pain Physical Exam Vital Signs Date Time Temp Pulse Resp B/P (MAP) Pulse Ox O2 Delivery O2 Flow Rate FiO2 04/10/17 21:01 68 18 168/97 98 04/10/17 20:24 65 04/10/17 20:19 63 04/10/17 20:10 68 18 164/93 98 04/10/17 19:26 166/99 2/15/18 19:22 64 04/10/17 18:57 36.6 68 20 172/94 99 Room Air Physical Exam VITALS: Vitals are noted on the nurse's note and reviewed by myself. Vital signs stable. GENERAL: This is a 51-year-old white male, in no acute distress, nondiaphoretic , well-developed well-nourished. SKIN: The skin was without rashes, erythema, edema, or bruising. There is no tenting of the skin. Capillary reflex less than 2 seconds. HEAD: Normocephalic atraumatic. EARS: External auditory canals clear, tympanic membranes pearly davidson without erythema or effusion bilaterally. EYES: Pupils equal round and reactive to light and accommodation. Conjunctivae without injection, sclerae without icterus. Extraocular movements intact. NOSE: Patent, turbinates without inflammation or discharge. No sinus tenderness. MOUTH: Mucous membranes moist. Tonsils are not enlarged. Pharynx without erythema or exudate. Uvula midline. Airway patent. Tongue does not deviate. NECK: Supple without nuchal rigidity. No lymphadenopathy. No thyromegaly. Cervical spine is nontender. No JVD. HEART: Regular rate and rhythm without murmurs gallops or rubs. LUNGS: Clear to auscultation bilaterally without wheezes, rales or rhonchi. No dullness to percussion. No retractions or accessory muscle use. ABDOMEN: Positive bowel sounds x 4. Normal tympanic percussion. Soft, nontender, without masses or organomegaly. Kohler sign negative. No guarding or rebound tenderness. Positive CVA tenderness on the left. MUSCULOSKELETAL: No muscle atrophy, erythema, or edema noted. Full range of motion without joint tenderness in all extremities. No tenderness to palpation. Normal gait. Strength 5/5 throughout. NEURO: Patient was alert and oriented to person place and time. Normal sensation to light and sharp touch. Deep tendon reflexes 2+ throughout. No focal neurological deficits. Medical Decision & Procedures ER Provider Diagnostic Interpretation: KUB HISTORY: left flank pain COMPARISON: None. FINDINGS: The bowel gas pattern is unremarkable. There are no dilated loops of small bowel to suggest an obstruction. No right renal or right ureteral calculi. There is an 8 mm calcification at the expected location of the left ureteropelvic junction. Calcifications in the deep pelvis likely represent phleboliths. No pneumoperitoneum or pneumatosis. IMPRESSION: 1. An 8 mm stone at the left ureteropelvic junction. 2. No right renal or ureteral calculi. Electronically signed by: Angel Granado M.D. 04/10/2017 8:08 PM Dictated Date/Time: 04/10/2017 8:07 PM RENAL ULTRASOUND HISTORY: 8mm stone, left UPJ COMPARISON: KUB 04/10/2017. FINDINGS: Right kidney: 10.9 cm. No hydronephrosis. Normal corticomedullary differentiation and cortical thickness. Left kidney: 12.7 cm. No hydronephrosis. Normal corticomedullary differentiation and cortical thickness. Bladder: Not well distended. No significant bladder wall thickening. The ureteral jets are not identified during the examination area IMPRESSION: No hydronephrosis. No renal calculi identified. Electronically signed by: Angel Granado M.D. 04/10/2017 9:33 PM Dictated Date/Time: 04/10/2017 9:31 PM Laboratory Results 04/10/17 19:15 Red Blood Count 4.34, Mean Corpuscular Volume 97.5, Mean Corpuscular Hemoglobin 33.6, Mean Corpuscular Hemoglobin Concent 34.5, Mean Platelet Volume 9.4, Neutrophils (%) (Auto) 68.4, Lymphocytes (%) (Auto) 19.8, Monocytes (%) (Auto) 11.6, Eosinophils (%) (Auto) 0.0, Basophils (%) (Auto) 0.0, Neutrophils # (Auto ) 4.48, Lymphocytes # (Auto) 1.30, Monocytes # (Auto) 0.76, Eosinophils # (Auto ) 0.00, Basophils # (Auto) 0.00 04/10/17 19:15 Test 04/10/17 19:15 04/10/17 19:53 White Blood Count 6.55 K/uL (4.8-10.8) Red Blood Count 4.34 M/uL (4.7-6.1) Hemoglobin 14.6 g/dL (14.0-18.0) Hematocrit 42.3 % (42-52) Mean Corpuscular Volume 97.5 fL (80-100) Mean Corpuscular Hemoglobin 33.6 pg (25-34) Mean Corpuscular Hemoglobin Concent 34.5 g/dl (32-36) Platelet Count 197 K/uL (130-400) Mean Platelet Volume 9.4 fL (7.4-10.4) Neutrophils (%) (Auto) 68.4 % Lymphocytes (%) (Auto) 19.8 % Monocytes (%) (Auto) 11.6 % Eosinophils (%) (Auto) 0.0 % Basophils (%) (Auto) 0.0 % Neutrophils # (Auto) 4.48 K/uL (1.4-6.5) Lymphocytes # (Auto) 1.30 K/uL (1.2-3.4) Monocytes # (Auto) 0.76 K/uL (0.11-0.59) Eosinophils # (Auto) 0.00 K/uL (0-0.5) Basophils # (Auto) 0.00 K/uL (0-0.2) RDW Standard Deviation 51.2 fL (36.4-46.3) RDW Coefficient of Variation 14.3 % (11.5-14.5) Immature Granulocyte % (Auto) 0.2 % Immature Granulocyte # (Auto) 0.01 K/uL (0.00-0.02) Anion Gap 7.0 mmol/L (3-11) Est Creatinine Clear Calc Drug Dose 61.2 ml/min Estimated GFR () 58.8 Estimated GFR (Non- 50.7 BUN/Creatinine Ratio 7.9 (10-20) Calcium Level 9.1 mg/dl (8.5-10.1) Total Bilirubin 0.7 mg/dl (0.2-1) Aspartate Amino Transf (AST/SGOT) 123 U/L (15-37) Alanine Aminotransferase (ALT/SGPT) 319 U/L (12-78) Alkaline Phosphatase 100 U/L (45-117) Total Protein 8.4 gm/dl (6.4-8.2) Albumin 4.2 gm/dl (3.4-5.0) Globulin 4.2 gm/dl (2.5-4.0) Albumin/Globulin Ratio 1.0 (0.9-2) Urine Color DK YELLOW Urine Appearance CLEAR (CLEAR) Urine pH 5.5 (4.5-7.5) Urine Specific [place] 1.023 (1.000-1.030) Urine Protein 1+ (NEG) Urine Glucose (UA) NEG (NEG) Urine Ketones TRACE (NEG) Urine Occult Blood 3+ (NEG) Urine Nitrite NEG (NEG) Urine Bilirubin NEG (NEG) Urine Urobilinogen NEG (NEG) Urine Leukocyte Esterase NEG (NEG) Urine WBC (Auto) 1-5 /hpf (0-5) Urine RBC (Auto) 10-30 /hpf (0-4) Urine Hyaline Casts (Auto) 5-10 /lpf (0-5) Urine Epithelial Cells (Auto) >30 /lpf (0-5) Urine Bacteria (Auto) NEG (NEG) Urine Renal Epithelial Cells 0-5 /lpf (0-5) Medications Administered Medications (Trade) Dose Ordered Sig/Steffi Route Start Time Stop Time Status Last Admin Dose Admin Sodium Chloride 1,000 ml @ 999 mls/hr Q1H1M STAT IV 04/10/17 19:24 04/10/17 20:24 DC 04/10/17 19:27 999 MLS/HR Ketorolac Tromethamine (Toradol Inj) 15 mg NOW STAT IV 04/10/17 20:04 04/10/17 20:06 DC 04/10/17 20:10 15 MG ED Course The patient was seen and evaluated as above. IV access obtained, labs drawn. The patient was given 1 L normal saline solution, as he states he has not been able to urinate, and has not had many fluids today. Bladder scan showed only 38 cc of urine. The patient was able to urinate. The patient requested pain medication and was given 15 mg Toradol IV. KUB performed and reviewed by myself and radiologist as above. The patient has an 8 mm stone in the area of the UPJ. I did discuss the case with Dr. Packer. Ultrasound was ordered to rule out hydronephrosis. Ultrasound was reviewed by myself and radiologist as above. The patient was reassessed. He is in no pain at this time. The patient has no PCP and has medical assistance insurance, so will require a referral to urology. Reviewed criteria for admission, and the patient does not meet criteria. He was encouraged to contact a PCP regarding referral as soon as possible, as I suspect the stone will not pass without lithotripsy. Discharge instructions reviewed, and the patient was discharged home in good condition. Medical Decision This is a 51-year-old male patient who presents to the ED complaining of left flank pain consistent with pain he has experienced in the past with kidney stones. The patient states the symptoms began at approximately 330 this afternoon after he awoke from sleeping. The patient states the pain has not gone away, however gets worse and improves over time. The patient did report difficulty urinating, however bladder scan did not show any significant amount of urine in his bladder. The patient was able to urinate after given IV fluids , and did not require a cath. Labs did not show leukocytosis or significant anemia. The patient's urinalysis was positive for blood, but did not show signs of infection. His creatinine was elevated at 1.55. His AST and ALT were elevated as well. These have increased significantly since previous testing performed. I did strongly encourage the patient that he needs to follow-up outpatient with PCP regarding ongoing monitoring and workup for the liver function. I did review criteria for admission versus observation. The patient does not meet criteria, as he has only required 1 dose of pain medication and does not have hydronephrosis. The patient was encouraged to quickly become established with a primary care provider in order to obtain referral to be seen by urology as soon as possible. He was given very strict return precautions, as I am concerned that his symptoms could worsen and become serious. The patient is agreeable to returning if symptoms significantly worsen. He will be treated with flomax and pain medication at this time. He will work on follow-up and case management will follow-up tomorrow. Etiologies such as renal colic, appendicitis, diverticulitis, mesenteric ischemia, aortic pathology, infections, inflammatory bowel disease, PUD, biliary pathology, UTI, as well as others were entertained. Medication Reconcilliation Current Medication List: was personally reviewed by [facility] Blood Pressure Screening Patient's blood pressure: Normal blood pressure Impression Primary Impression: Nephrolithiasis Departure Information Dispostion Home / Self-Care Condition GOOD Prescriptions Tamsulosin Hcl (FLOMAX) 0.4 Mg Cap 0.4 MG PO QD for 7 Days, #7 CAP Prov: Madeleine Raygoza PA-C 04/10/17 Oxycodone Ir (Roxicodone Ir) 5 Mg Tab 1 TAB PO Q4H Y for Pain, #15 TAB For Initial Treatment Prov: Madeleine Raygoza PA-C 04/10/17 Referrals No Doctor, Assigned (PCP) Quinton, Wild, M.D. Patient Instructions ED Stone Renal W Colic, My [facility] Additional Instructions You have been treated in the Emergency Department today for a Kidney Stone ( Nephrolithiasis). You have been prescribed OxyIR to be used for pain control. This is a narcotic medication. You cannot drive or consume alcohol while on this medicine. This medicine should only be used for pain that cannot be controlled with over-the- counter pain medicines. You have been prescribed Flomax 0.4 mg to be taken ONCE daily. This medicine has been prescribed as it can help relax the smooth muscles of the urinary tract increasing transit time of the kidney stone. For pain control, you can use Tylenol and/or ibuprofen as directed by your medical providers due to your liver function. You have been provided a strainer and specimen collection cup. You should strain your urine to collect any passed stones. Your stones can be placed into the specimen cup and taken to your Urologist for further evaluation. You have been provided the contact information for the on-call Urologist. You should contact the Urologist's office tomorrow to establish a follow-up appointment from today's Emergency Department visit, as I suspect you may need lithotripsy for removal of the stone. As discussed, you will need to have a PCP appointment and referral in order to see urology. I do recommend contacting your old PCP to request referral, as that may be easier than seeing a new PCP first, however, I can not guarantee that you will be able to be seen. Return to the Emergency Department if your symptoms persist despite the treatment plan outlined above or if you develop the following symptoms: intractable pain, fever, chills, or large amounts of blood in your urine.
[2017-04-10 19:39] LABS: ALBUMIN 4.2 gm/dl (3.4-5.0); CALCIUM 9.1 mg/dl (8.5-10.1); CREATININE 1.55 mg/dl (0.60-1.40); POTASSIUM 3.9 mmol/L (3.5-5.1)
[2017-04-10 19:42] LABS: TOTAL PROTEIN 8.4 gm/dl (6.4-8.2)
[2017-04-10] MEDS ORDERED: KETOROLAC TROMETHAMINE 30 MG/ML VIAL IV STA (20:04)
--- NOTE | 2017-04-10 20:09 | DIAGNOSTIC IMAGING REPORT ---
KUB HISTORY: left flank pain COMPARISON: None. FINDINGS: The bowel gas pattern is unremarkable. There are no dilated loops of small bowel to suggest an obstruction. No right renal or right ureteral calculi. There is an 8 mm calcification at the expected location of the left ureteropelvic junction. Calcifications in the deep pelvis likely represent phleboliths. No pneumoperitoneum or pneumatosis. IMPRESSION: 1. An 8 mm stone at the left ureteropelvic junction. 2. No right renal or ureteral calculi. Electronically signed by: Angel Granado M.D. 04/10/2017 8:08 PM Dictated Date/Time: 04/10/2017 8:07 PM
--- NOTE | 2017-04-10 21:34 | DIAGNOSTIC IMAGING REPORT ---
RENAL ULTRASOUND HISTORY: 8mm stone, left UPJ COMPARISON: KUB 04/10/2017. FINDINGS: Right kidney: 10.9 cm. No hydronephrosis. Normal corticomedullary differentiation and cortical thickness. Left kidney: 12.7 cm. No hydronephrosis. Normal corticomedullary differentiation and cortical thickness. Bladder: Not well distended. No significant bladder wall thickening. The ureteral jets are not identified during the examination area IMPRESSION: No hydronephrosis. No renal calculi identified. Electronically signed by: Angel Granado M.D. 04/10/2017 9:33 PM Dictated Date/Time: 04/10/2017 9:31 PM
[2017-04-10] MEDS ORDERED: OXYC1TAB3 PO (21:53)
[2017-04-10] MEDS ORDERED: TAMS0.4C38 PO (21:59)
[2017-04-10 22:08] VITALS: BP 166/104; PULSE 71; TEMP 36.6; O2SAT 98
== END 2017-04-10 22:08 | disposition home or self-care (01) ==
LOC: C.EDB 18:21 → C.EDD 22:08
DX: N20.0 Calculus of kidney (principal); F17.200 Nicotine dependence, unspecified, uncomplicated

== ENCOUNTER 2017-07-06 15:49 | Emergency (ER) | payer OTHER ==
[~2017-07-06] VITALS: Ht 182.9 cm; Wt 91.1 kg
[~2017-07-06 15:49] MED LIST changes: -CEPH500C PO; +OXYC1TAB3 PO; -SULF800T23 PO
[2017-07-06 15:51] VITALS: TEMP 37; Ht 182.9 cm; Wt 91.1 kg
--- NOTE | 2017-07-06 16:09 | EMERGENCY ROOM VISIT NOTE ---
History First contact with patient: 15:58 Chief Complaint: SHOULDER PAIN Stated Complaint: LEFT BAD SHOULDER PAIN History of Present Illness The patient is a 52 year old male who presents to the Emergency Room via private vehicle with complaints of "left that shoulder pain". The patient states that for the past few weeks he has been experiencing left-sided shoulder pain that is worsening of the scapula. It is worse when he coughs, sneezes or moves the left arm. He rates the overall pain as a 6/10. He states that there is been no trauma or injury. No heavy lifting. There is no chest pain or shortness of breath. He does note he has a history of pulmonary embolism which he believes was provoked from drug use in the past. He denies any recent drug use. He is right-hand dominant. Review of Systems A complete 10-point Review of Systems was discussed with the patient, with pertinent positives and negatives listed in the History of Present Illness. All remaining Review of Systems questions can be considered negative unless otherwise specified. Past Medical/Surgical History Medical Problems: (1) Closure of patent foramen ovale (2) Patent foramen ovale Social History Smoking Status: Current Every Day Smoker Alcohol Use: none Drug Use: other Marital Status: Housing Status: lives with family Occupation Status: unemployed Current/Historical Medications Scheduled PRN Oxycodone Ir (Roxicodone Ir), 1-2 TAB PO Q6 PRN for Pain Allergies Coded Allergies: Furosemide (Verified Allergy, Severe, SCROTAL SWELLING, 07/06/17) Naproxen (Unverified Allergy, Mild, SWELLING, 07/06/17) Ofloxacin (Verified Allergy, Unknown, PER RECORD, 07/06/17) Oxacillin (Verified Allergy, Unknown, PER RECORD, 07/06/17) Physical Exam Vital Signs Date Time Temp Pulse Resp B/P (MAP) Pulse Ox O2 Delivery O2 Flow Rate FiO2 07/06/17 17:48 73 16 165/100 98 07/06/17 15:51 37.0 83 18 173/105 99 Room Air Physical Exam VITAL SIGNS - Vital signs and nursing notes were reviewed. Hypertensive. Afebrile. GENERAL -52-year-old male appearing his stated age who is in no acute distress. Communicates well with provider and answers questions appropriately. SKIN - Without rashes. No meningeal or petechial rash. The skin overlying the left shoulder is unremarkable. HEAD - NC/AT. EYES - PERRL with EOMI bilaterally. Sclera anicteric. EARS - No deformities of external structures noted on gross examination bilaterally. NOSE - Midline and without cyanosis. No epistaxis or purulent drainage noted. MOUTH/OROPHARYNX - Without perioral cyanosis. NECK: Minimal tenderness at the base of the neck at the superior scapula. Reproducible tenderness in this musculature. LUNGS - Chest wall symmetric without accessory muscle use, intercostals retractions, or central cyanosis. Normal vesicular breath sounds CTA B/L. No wheezes, rales, or rhonchi appreciated. CARDIAC - RRR with S1/S2. No murmur, rubs, or gallops appreciated. Reproducible left anterior tenderness at the clavicular line region. EXTREMITIES - No clubbing or peripheral cyanosis. No pretibial edema present. With range of motion the patient's left shoulder both actively and passively there is minimal increase in his scapular pain. Empty can test is subtly positive. +5/5 strength noted in UE/LE bilaterally. NEUROLOGIC - Cranial nerves II through XII grossly intact. Sensory intact to light touch throughout. PSYCH - A&O, and cooperates fully with examiner. Pt is very pleasant and interacts well with examiner. Medical Decision & Procedures ER Provider Diagnostic Interpretation: CHEST ONE VIEW PORTABLE HISTORY: Left shoulder pain. COMPARISON: Chest 11/13/2011. FINDINGS: Mild elevation of the right hemidiaphragm, unchanged. A few bibasilar linear densities suggestive of subsegmental atelectasis are scarring. The lungs are otherwise clear. No pleural effusions. No pneumothorax. The heart is normal in size. An atrial septal closure device is noted. Cervical spinal fusion hardware is partially visualized. Questionable left apical density is due to the overlapping first rib. IMPRESSION: 1. No acute process within the chest. 2. Low lung volumes with mild elevation of the right hemidiaphragm and bibasilar atelectasis/scarring. Electronically signed by: Angel Granado M.D. 07/06/2017 5:06 PM Dictated Date/Time: 07/06/2017 5:03 PM LEFT SHOULDER 3 VIEWS HISTORY: L shoulder pain COMPARISON: None. FINDINGS: There is no fracture or dislocation. Soft tissues are unremarkable. Cervical spinal fusion hardware is partially visualized. The left clavicle is intact. IMPRESSION: No fracture or dislocation within the left shoulder. Electronically signed by: Angel Granado M.D. 07/06/2017 4:58 PM Dictated Date/Time: 07/06/2017 4:56 PM Laboratory Results 07/06/17 16:15 Red Blood Count 4.54, Mean Corpuscular Volume 93.8, Mean Corpuscular Hemoglobin 33.0, Mean Corpuscular Hemoglobin Concent 35.2, Mean Platelet Volume 9.1, Neutrophils (%) (Auto) 67.8, Lymphocytes (%) (Auto) 23.9, Monocytes (%) (Auto) 8.1, Eosinophils (%) (Auto) 0.0, Basophils (%) (Auto) 0.0, Neutrophils # (Auto) 3.09, Lymphocytes # (Auto) 1.09, Monocytes # (Auto) 0.37, Eosinophils # (Auto) 0.00, Basophils # (Auto) 0.00 07/06/17 16:15 Test 07/06/17 16:15 White Blood Count 4.56 K/uL (4.8-10.8) Red Blood Count 4.54 M/uL (4.7-6.1) Hemoglobin 15.0 g/dL (14.0-18.0) Hematocrit 42.6 % (42-52) Mean Corpuscular Volume 93.8 fL (80-100) Mean Corpuscular Hemoglobin 33.0 pg (25-34) Mean Corpuscular Hemoglobin Concent 35.2 g/dl (32-36) Platelet Count 167 K/uL (130-400) Mean Platelet Volume 9.1 fL (7.4-10.4) Neutrophils (%) (Auto) 67.8 % Lymphocytes (%) (Auto) 23.9 % Monocytes (%) (Auto) 8.1 % Eosinophils (%) (Auto) 0.0 % Basophils (%) (Auto) 0.0 % Neutrophils # (Auto) 3.09 K/uL (1.4-6.5) Lymphocytes # (Auto) 1.09 K/uL (1.2-3.4) Monocytes # (Auto) 0.37 K/uL (0.11-0.59) Eosinophils # (Auto) 0.00 K/uL (0-0.5) Basophils # (Auto) 0.00 K/uL (0-0.2) RDW Standard Deviation 48.0 fL (36.4-46.3) RDW Coefficient of Variation 13.9 % (11.5-14.5) Immature Granulocyte % (Auto) 0.2 % Immature Granulocyte # (Auto) 0.01 K/uL (0.00-0.02) D-Dimer 370 ug/L FEU (0-500) Anion Gap 6.0 mmol/L (3-11) Est Creatinine Clear Calc Drug Dose 61.7 ml/min Estimated GFR () 59.8 Estimated GFR (Non- 51.6 BUN/Creatinine Ratio 16.0 (10-20) Calcium Level 8.6 mg/dl (8.5-10.1) Troponin I < 0.015 ng/ml (0-0.045) Medical Decision Patient was seen and evaluated as above in room D6. Review was performed of nursing notes and vital signs. After obtaining a thorough history and physical examination the above work up was performed. He presents to us today with left shoulder/left scapular pain. He does have a history of PE. He is nontoxic on exam and exhibits stable vital signs with hypertension. I did obtain a bedside EKG which reveals normal sinus rhythm, no ectopy or ischemic change. Did obtain cardiac enzyme which was negative. D-dimer also negative. Chest x-ray no acute process. Shoulder x-ray unremarkable. I suspect is likely experiencing a rotator cuff injury/musculoskeletal strain in the posterior shoulder region. CBC does reveal decrease in white blood cell count red blood cell count minimally. No concerning anemia. Metabolic process does reveal creatinine 1.52 which appears stable compared to previous. Based upon the patient's past medical history I did utilize shared decision-making in regard to follow-up recommendations. This includes pain medication choice. I informed him that I do not want to create further difficulties with his recovery but he did note that he may need something for severe pain. He will be given a short course of oxycodone immediate release. No red flags in the [place] drug monitoring system. He is to utilize [id number] pain medications. He was informed upon his creatinine level and importance of follow -up. He notes he does not have a family doctor. I do recommend him to call the back of his insurance card to follow-up and he feels comfortable doing so. He is also to follow-up with the orthopedics and family doctor. He is to return with worsening. He was given an arm sling. The patient was educated upon management, had questions answered prior to discharge, and was discharged home in good condition. Case was discussed with the attending physician. I attest that I have personally reviewed the patient medication list. I attest that I have reviewed the patient's blood pressure and it was found to be Elevated, he is to follow with family doctor regarding his presentation here today. In the evaluation and treatment of this patient the following differential diagnoses were entertained: TX, PE, rotator cuff injury, strain, sprain, fracture, dislocation, among others. Impression Primary Impression: Shoulder pain, left Departure Information Dispostion Home / Self-Care Condition GOOD Prescriptions Oxycodone Ir (Roxicodone Ir) 5 Mg Tab 1-2 TAB PO Q6 Y for Pain, #15 TAB For Initial Treatment Prov: Francesco Bhatia PA-C 07/06/17 Referrals No Doctor, Assigned (PCP) Lul Zhu M.D. Patient Instructions My [facility] Additional Instructions You have been treated in the Emergency Department for Shoulder Pain. You have been prescribed OXY IR to be used for SEVERE pain control. This is a narcotic medication. You cannot drive or consume alcohol while on this medicine. This medicine should only be used for pain that cannot be controlled with bpjw-dfw-pdyxoic pain medicines. For pain control, you can use the following gupp-icy-wgypuda medicines: - Regular strength (325mg/tab) Tylenol (acetaminophen) 2 tabs every 4-6 hours as needed. Do not exceed 12 tablets in a 24 hour period. Avoid taking more than 3 grams (3000 mg) of Tylenol per day. This includes any other sources of acetaminophen you may take on a regular basis. If this is a recent injury (<24 hrs), ice can be applied to the area of pain for the first 3 days to help decrease pain and inflammation. You have been provided the number for an Orthopaedic Surgeon. You should call this number as soon as possible to establish a follow-up visit from today's Emergency Department visit. Keep the shoulder brace/sling in place until evaluated by Orthopedics. Continue to perform range of motion exercises several times per day to help prevent the development of a "frozen shoulder". Please discuss with your insurance local family doctors so that you may follow- up regarding your creatinine around 1.5 and overall health. Return to the Emergency Department if your current symptoms worsen despite treatment course outlined above, or if you develop any of the following symptoms : intractable pain despite aforementioned treatment course or new onset of numbness or tingling of the arm.
[2017-07-06 16:27] LABS: HEMATOCRIT 42.6 % (42-52); IG# 0.01 K/uL (0.00-0.02); LYMPH % 23.9 %; LYMPH ABS # 1.09 K/uL (1.2-3.4); MEAN CELL VOLUME 93.8 fL (80-100); MEAN CORPUSCULAR HGB CONC 35.2 g/dl (32-36); MEAN PLATELET VOLUME 9.1 fL (7.4-10.4); MONO % 8.1 %; MONO ABS # 0.37 K/uL (0.11-0.59); NEUT % 67.8 %; NEUT ABS # 3.09 K/uL (1.4-6.5); PLATELET COUNT 167 K/uL (130-400); RED CELL DISTRIBUTION WIDTH CV 13.9 % (11.5-14.5); WHITE BLOOD COUNT 4.56 K/uL (4.8-10.8)
[2017-07-06 16:50] LABS: BLOOD UREA NITROGEN 24 mg/dl (7-18); CALCIUM 8.6 mg/dl (8.5-10.1); CARBON DIOXIDE 23 mmol/L (21-32); CREATININE 1.52 mg/dl (0.60-1.40); GLUCOSE 101 mg/dl (70-99); POTASSIUM 4.2 mmol/L (3.5-5.1); SODIUM 138 mmol/L (136-145)
--- NOTE | 2017-07-06 17:00 | DIAGNOSTIC IMAGING REPORT ---
LEFT SHOULDER 3 VIEWS HISTORY: L shoulder pain COMPARISON: None. FINDINGS: There is no fracture or dislocation. Soft tissues are unremarkable. Cervical spinal fusion hardware is partially visualized. The left clavicle is intact. IMPRESSION: No fracture or dislocation within the left shoulder. Electronically signed by: Angel Granado M.D. 07/06/2017 4:58 PM Dictated Date/Time: 07/06/2017 4:56 PM
--- NOTE | 2017-07-06 17:07 | DIAGNOSTIC IMAGING REPORT ---
CHEST ONE VIEW PORTABLE HISTORY: Left shoulder pain. COMPARISON: Chest 11/13/2011. FINDINGS: Mild elevation of the right hemidiaphragm, unchanged. A few bibasilar linear densities suggestive of subsegmental atelectasis are scarring. The lungs are otherwise clear. No pleural effusions. No pneumothorax. The heart is normal in size. An atrial septal closure device is noted. Cervical spinal fusion hardware is partially visualized. Questionable left apical density is due to the overlapping first rib. IMPRESSION: 1. No acute process within the chest. 2. Low lung volumes with mild elevation of the right hemidiaphragm and bibasilar atelectasis/scarring. Electronically signed by: Angel Granado M.D. 07/06/2017 5:06 PM Dictated Date/Time: 07/06/2017 5:03 PM
[2017-07-06] MEDS ORDERED: OXYC1TAB3 PO (17:39)
[2017-07-06 17:48] VITALS: BP 165/100; PULSE 73; O2SAT 98
== END 2017-07-06 17:49 | disposition home or self-care (01) ==
LOC: C.EDB 15:50 → C.EDD 17:49
DX: M25.512 Pain in left shoulder (principal); R03.0 Elevated blood-pressure reading, without diagnosis of hypertension; D72.819 Decreased white blood cell count, unspecified; F17.200 Nicotine dependence, unspecified, uncomplicated; Z88.8 Allergy status to other drugs, medicaments and biological substances; Z88.6 Allergy status to analgesic agent; Z88.0 Allergy status to penicillin; Z88.1 Allergy status to other antibiotic agents

== ENCOUNTER 2020-01-09 15:45 | Inpatient (IN) ==
--- OUTSIDE RECORDS SUMMARY | 2020-01-09 15:48 | External Medical Summary | Continuity of Care Document ---
:1965 Author Name Travis Rivera Address Unavailable Unavailable , Care Team Providers Name Role Phone Leilani Miller M.D. Unavailable [email or web address] Naomi Orellana III, M.D. 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 Miguel Miller Start: 06-Feb-2011 Quantity: 30 Refills: 5 Calan SR 120 MG Oral Tablet Extended Release; TAKE 1 T ABLET DAILY. Miguel Miller Start: 12-Jul-2010 Refills: 0 oxyCODONE HCl - 15 MG Oral Tablet; TAKE 1 TABLET EVERY 4 HOURS NEEDED. Miguel Miller Start: 12-Jul-2010 Quantity: 150 Refills: 0 Procedures Procedures not documented Immunizations Immunizations not documented Plan of Treatment Planned Observations Planned Goals not documented Results No Known Results Results not documented
--- OUTSIDE RECORDS SUMMARY | 2020-01-09 15:48 | External Medical Summary | Continuity of Care Document ---
:1965 Author Name Travis Rivera Address Unavailable Unavailable , Care Team Providers Name Role Phone Leilani Miller M.D. Unavailable [email or web address] Naomi Orellana III, M.D. 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 Miguel Miller Start: 12-Jul-2010 Quantity: 150 Refills: 0 Calan SR 120 MG Oral Tablet Extended Release; TAKE 1 T ABLET DAILY. Miguel Miller Start: 12-Jul-2010 Refills: 0 Verapamil HCl ER 240 MG Oral Tablet Extended Release; TAKE 1 TABLET DAILY. Miguel Miller Start: 06-Feb-2011 Quantity: 30 Refills: 5 Procedures Procedures not documented Immunizations Immunizations not documented Plan of Treatment Planned Observations Planned Goals not documented Results No Known Results Results not documented
[2020-01-09] MEDS ORDERED: SODIUM CHLORIDE 0.9% 1000ML 1,000 ML IV ONE (17:00)
[2020-01-09] MEDS ORDERED: CEFEPIME 2,000 MG/20 ML VIAL IV STA (17:03)
[2020-01-09 17:51] LABS: Basophils # (auto) 0.01 K/uL (0-0.2); Basophils % (auto) 0.2 %; Hematocrit (blood only) 39.7 % (42-52); Hemoglobin 13.6 g/dL (14.0-18.0); Immature Granulocytes # (auto) 0.01 K/uL (0.00-0.02); Immature Granulocytes % (auto) 0.2 %; Lymphocytes # (auto) 0.55 K/uL (1.2-3.4); Lymphocytes % (auto) 8.9 %; Mean Corpuscular Hemoglobin 33.8 pg (25-34); Mean Corpuscular Hgb Conc 34.3 g/dL (32-36); Mean Corpuscular Volume 98.8 fL (80-100); Mean Platelet Volume 10.2 fL (7.4-10.4); Monocytes # (auto) 0.39 K/uL (0.11-0.59); Monocytes % (auto) 6.3 %; Neutrophils % (auto) 84.4 %; Platelet Count 103 K/uL (130-400); RDW Coefficient of Variation 14.5 % (11.5-14.5); RDW Standard Deviation 52.8 fL (36.4-46.3); Red Blood Count 4.02 M/uL (4.7-6.1); White Blood Count 6.16 K/uL (4.8-10.8)
--- NOTE | 2020-01-09 17:55 | Emergency Department Note ---
Impression & Plan Pneumonia, Hypoxia, COVID-19 virus infection ED Provider Note NAME: HANG LYLES AGE: 54 SEX: M : 1965 ARRIVES VIA: Walk-In INFORMANT: Patient, ED PROVIDER(S): Saurav Packer DO CHIEF COMPLAINT: Fever and cough HPI: The patient is a 54-year-old male who presented to the emergency department for an evaluation of fever and cough. The patient's had symptoms for approximately 1 week. He states that he has been having difficulty breathing and exertional shortness of breath as well as chest pain. He has had symptoms ongoing for greater than 24 hours. He is also noticed fever. He does have a history of IV drug abuse in the past but not for 4 years. He states that one time he was septic and required significant inpatient management. For this reason he presented to the emergency department soon for an evaluation of possible sepsis. He does not wear oxygen. He describes significant coughing. He also describes muscle aches. He denies having any recent falls. The patient did not see his family doctor prior to coming to the emergency department. ROS: See above HPI for pertinent positives & negatives. A total of 10 systems reviewed and were otherwise negative. PAST MEDICAL HISTORY: See Below PAST SURGICAL HISTORY: See Below FAMILY HISTORY: See Below SOCIAL HISTORY: See Below HOME MEDICATIONS: See Below ALLERGIES: See Below VITALS: See Below PHYSICAL EXAMINATION: GENERAL: The patient is awake and alert. He is very anxious appearing and appears to be uncomfortable. EYES: The conjunctivae are clear. The pupils are round and reactive. EARS, NOSE, MOUTH AND THROAT: The nose is without any evidence of any deformity. NECK: The neck is nontender and supple. RESPIRATORY: Diminished breath sounds are noted throughout. There is wheezing in both lung toscano. Absent lung sounds were noted at the left base. There was mild conversational dyspnea appreciated. CARDIOVASCULAR: Regular rate and rhythm noted there no murmurs rubs or gallops normal S1 normal S2. GASTROINTESTINAL: The abdomen is soft. Abdomen is nontender. BACK: No midline tenderness was noted. MUSCULOSKELETAL/EXTREMITIES: There is no evidence of gross deformity full range of motion is noted in the hips and shoulders. SKIN: There is no obvious evidence of any rash. There are no petechiae, pallor or cyanosis noted. NEUROLOGIC: Patient is awake alert and oriented x3 strength is symmetric patellar reflexes are 2+ bilaterally MEDICAL DECISION MAKING: The patient is a 54-year-old male who presented to the emergency department for an evaluation of difficulty breathing cough and low-grade fever. The patient has a history of IV drug abuse but this is in the remote past. The patient has no recent history of IV drug abuse. He was found to have respiratory findings. And on chest x-ray was found to have signs of pneumonia. His Covid swab was positive. He was treated with IV steroids and IV antibiotics in the emergency department. He was reevaluated multiple times. I discussed the patient's laboratory and radiographic studies with him. Ultimately given his degree of hypoxia I also discussed his case with the on-call [facility] hospitalist. They have agreed to evaluate the patient in the emergency department for further management and disposition. The patient was placed on supplemental oxygen with significant improvement of his symptoms. Triage Nursing notes reviewed. Prior medical records reviewed Vital Signs: reviewed and remarkable for hypertension, tachypnea, hypoxia, fever. Differential diagnosis: Reactive airway disease, pneumonia, pneumothorax, COPD, CHF, infections, cardiac ischemia, pulmonary embolism, musculoskeletal, gastrointestinal, as well as other pathologies. ER treatment provided: See below Diagnostics interpreted by me: ECG: EKG was obtained in the emergency department. My interpretation is sinus tachycardia at 104 bpm. There was no ectopy. There was no acute ST segment abnormalities noted. This was compared to a tracing from July 06, 2017. No significant changes were noted. Cardiac Monitoring: An order was placed for continuous cardiac monitoring. The monitor shows a rate of 95 bpm with sinus rhythm. Laboratory studies: As stated above and show below. Imaging studies: See below Consultation(s): 1935: I discussed this case with the on-call [facility] hospitalist, Dr. Jordan. Past Med/Surg History Medical History Closure of patent foramen ovale (10/07/11) Encounter for medication refill Shoulder pain, left Swelling of abdominal wall Social History Smoking Status: Former smoker Preferred Language: Sami Feels Safe at Home: Yes Allergies Allergies Allergy/AdvReac Type Severity Reaction Status Date / Time furosemide Allergy Severe SCROTAL Verified 07/06/17 16:21 SWELLING naproxen Allergy Mild SWELLING Unverified 07/06/17 16:21 ofloxacin Allergy Unknown PER RECORD Verified 07/06/17 16:21 oxacillin Allergy Unknown PER RECORD Verified 07/06/17 16:21 Home Meds Home Medications Medication Instructions Recorded Confirmed No Known Home Medications 12/24/17 12/24/17 Results & Data (ED) Vital Signs Vital Signs - 24 hr 01/09/20 16:14 01/09/20 17:18 01/09/20 17:30 Temperature 38.7 C H Temperature Source Oral Pulse Rate 110 H 102 H 98 H Pulse Rate from SpO2 Sensor Respiratory Rate 22 31 H 30 H Respiratory Effort / Characteristics Non-Labored Spontaneous Short of Breath SOB on Exertion Respiratory Depth Normal Blood Pressure 148/82 H Blood Pressure Mean 104 Blood Pressure Position Sitting Pulse Oximetry 88 L Oxygen Delivery Method Room Air Oxygen Flow Rate Sepsis Recent Fever Within 48 Hours Yes Sepsis New/Unexplained Change in Mental Status No Sepsis Action Taken by Nursing No Action Required 01/09/20 17:41 01/09/20 18:00 01/09/20 18:30 Temperature Temperature Source Pulse Rate 95 H 96 H 93 H Pulse Rate from SpO2 Sensor 97 H 96 H 93 H Respiratory Rate 20 30 H 28 H Respiratory Effort / Characteristics Respiratory Depth Blood Pressure 116/75 118/87 146/84 H Blood Pressure Mean 87 93 109 Blood Pressure Position Pulse Oximetry 93 92 91 Oxygen Delivery Method Nasal Cannula Oxygen Flow Rate 2 Sepsis Recent Fever Within 48 Hours Sepsis New/Unexplained Change in Mental Status Sepsis Action Taken by Care Home Medications Current Medication List: was personally reviewed by me Laboratory Data Attestation: I reviewed the patient's lab results. Result diagrams: 01/09/20 17:26 01/09/20 17:26 Lab Results 01/09/20 01/09/20 01/09/20 Range/Units 17:26 17:26 17:26 WBC 6.16 (4.8-10.8) K/uL RBC 4.02 L (4.7-6.1) M/uL Hgb 13.6 L (14.0-18.0) g/dL Hct 39.7 L (42-52) % MCV 98.8 (80-100) fL MCH 33.8 (25-34) pg MCHC 34.3 (32-36) g/dL RDW Std Deviation 52.8 H (36.4-46.3) fL RDW Coeff of Theresa 14.5 (11.5-14.5) % Plt Count 103 L (130-400) K/uL MPV 10.2 (7.4-10.4) fL Immature Gran % (Auto) 0.2 % Neut % (Auto) 84.4 % Lymph % (Auto) 8.9 % [place] % (Auto) 6.3 % Eos % (Auto) 0.0 % Baso % (Auto) 0.2 % Neut # (Auto) 5.20 (1.4-6.5) K/uL Lymph # (Auto) 0.55 L (1.2-3.4) K/uL [place] # (Auto) 0.39 (0.11-0.59) K/uL Eos # (Auto) 0.00 (0-0.5) K/uL Baso # (Auto) 0.01 (0-0.2) K/uL Immature Gran # (Auto) 0.01 (0.00-0.02) K/uL PT 11.2 (9.0-12.0) Seconds INR 1.1 (0.9-1.1) APTT 35.9 H (21.0-31.0) Seconds PTT Ratio 1.3 Sodium 137 (136-145) mmol/L Potassium 4.0 (3.5-5.1) mmol/L Chloride 107 (98-107) mmol/L Carbon Dioxide 22 (21-32) mmol/L Anion Gap 8.0 (3-11) BUN 25 H (7-18) mg/dl Creatinine 1.82 H (0.6-1.4) mg/dl Est Cr Clr Drug Dosing 59.3 ml/min Est GFR ( Amer) 47.4 Est GFR (Non-Af Amer) 40.9 BUN/Creatinine Ratio 13.7 (10-20) Glucose 92 (70-99) mg/dl Lactate (0.4-2.0) mmol/L Calcium 8.5 (8.5-10.1) mg/dl Magnesium 2.4 (1.8-2.4) mg/dl Total Bilirubin 0.4 (0.2-1) mg/dl AST 47 H (15-37) U/L ALT 53 (12-78) U/L Alkaline Phosphatase 53 (45-117) U/L Troponin I < 0.015 (0-0.045) ng/ml Total Protein 9.0 H (6.4-8.2) gm/dl Albumin 4.3 (3.4-5.0) gm/dl Globulin 4.7 H (2.5-4.0) gm/dl Albumin/Globulin Ratio 0.9 (0.9-2) Procalcitonin (0-0.5) ng/ml Adenovirus (PCR) (NotDetected) B. pertussis DNA (PCR) (NotDetected) B.parapertussis DNA PCR (NotDetected) C. pneumoniae DNA (PCR) (NotDetected) Coronavirus OC43 (PCR) (NotDetected) Coronavirus HKU1 (PCR) (NotDetected) Coronavirus 229E (PCR) (NotDetected) COVID-19 Eval Order COVID-19 PCR (NotDetected) Coronavirus NL63 (PCR) (NotDetected) Human Metapneumovir PCR (NotDetected) Influenza Type A (PCR) (NotDetected) Influ A Molecular Assay Influenza Type B (PCR) (NotDetected) Influ B Molecular Assay M. pneumoniae (PCR) (NotDetected) Parainfluenza 1 (PCR) (NotDetected) Parainfluenza 2 (PCR) (NotDetected) Parainfluenza 3 (PCR) (NotDetected) Parainfluenza 4 (PCR) (NotDetected) RSV (PCR) (NotDetected) Entero/Rhino (PCR) (NotDetected) 01/09/20 01/09/20 01/09/20 Range/Units 17:26 17:26 17:39 WBC (4.8-10.8) K/uL RBC (4.7-6.1) M/uL Hgb (14.0-18.0) g/dL Hct (42-52) % MCV (80-100) fL MCH (25-34) pg MCHC (32-36) g/dL RDW Std Deviation (36.4-46.3) fL RDW Coeff of Theresa (11.5-14.5) % Plt Count (130-400) K/uL MPV (7.4-10.4) fL Immature Gran % (Auto) % Neut % (Auto) % Lymph % (Auto) % [place] % (Auto) % Eos % (Auto) % Baso % (Auto) % Neut # (Auto) (1.4-6.5) K/uL Lymph # (Auto) (1.2-3.4) K/uL [place] # (Auto) (0.11-0.59) K/uL Eos # (Auto) (0-0.5) K/uL Baso # (Auto) (0-0.2) K/uL Immature Gran # (Auto) (0.00-0.02) K/uL PT (9.0-12.0) Seconds INR (0.9-1.1) APTT (21.0-31.0) Seconds PTT Ratio Sodium (136-145) mmol/L Potassium (3.5-5.1) mmol/L Chloride (98-107) mmol/L Carbon Dioxide (21-32) mmol/L Anion Gap (3-11) BUN (7-18) mg/dl Creatinine (0.6-1.4) mg/dl Est Cr Clr Drug Dosing ml/min Est GFR ( Amer) Est GFR (Non-Af Amer) BUN/Creatinine Ratio (10-20) Glucose (70-99) mg/dl Lactate 0.7 (0.4-2.0) mmol/L Calcium (8.5-10.1) mg/dl Magnesium (1.8-2.4) mg/dl Total Bilirubin (0.2-1) mg/dl AST (15-37) U/L ALT (12-78) U/L Alkaline Phosphatase (45-117) U/L Troponin I (0-0.045) ng/ml Total Protein (6.4-8.2) gm/dl Albumin (3.4-5.0) gm/dl Globulin (2.5-4.0) gm/dl Albumin/Globulin Ratio (0.9-2) Procalcitonin 0.16 (0-0.5) ng/ml Adenovirus (PCR) (NotDetected) B. pertussis DNA (PCR) (NotDetected) B.parapertussis DNA PCR (NotDetected) C. pneumoniae DNA (PCR) (NotDetected) Coronavirus OC43 (PCR) (NotDetected) Coronavirus HKU1 (PCR) (NotDetected) Coronavirus 229E (PCR) (NotDetected) COVID-19 Eval Order COVID-19 PCR (NotDetected) Coronavirus NL63 (PCR) (NotDetected) Human Metapneumovir PCR (NotDetected) Influenza Type A (PCR) (NotDetected) Influ A Molecular Assay Cancelled Influenza Type B (PCR) (NotDetected) Influ B Molecular Assay Cancelled M. pneumoniae (PCR) (NotDetected) Parainfluenza 1 (PCR) (NotDetected) Parainfluenza 2 (PCR) (NotDetected) Parainfluenza 3 (PCR) (NotDetected) Parainfluenza 4 (PCR) (NotDetected) RSV (PCR) (NotDetected) Entero/Rhino (PCR) (NotDetected) 01/09/20 01/09/20 Range/Units 17:39 17:39 WBC (4.8-10.8) K/uL RBC (4.7-6.1) M/uL Hgb (14.0-18.0) g/dL Hct (42-52) % MCV (80-100) fL MCH (25-34) pg MCHC (32-36) g/dL RDW Std Deviation (36.4-46.3) fL RDW Coeff of Theresa (11.5-14.5) % Plt Count (130-400) K/uL MPV (7.4-10.4) fL Immature Gran % (Auto) % Neut % (Auto) % Lymph % (Auto) % [place] % (Auto) % Eos % (Auto) % Baso % (Auto) % Neut # (Auto) (1.4-6.5) K/uL Lymph # (Auto) (1.2-3.4) K/uL [place] # (Auto) (0.11-0.59) K/uL Eos # (Auto) (0-0.5) K/uL Baso # (Auto) (0-0.2) K/uL Immature Gran # (Auto) (0.00-0.02) K/uL PT (9.0-12.0) Seconds INR (0.9-1.1) APTT (21.0-31.0) Seconds PTT Ratio Sodium (136-145) mmol/L Potassium (3.5-5.1) mmol/L Chloride (98-107) mmol/L Carbon Dioxide (21-32) mmol/L Anion Gap (3-11) BUN (7-18) mg/dl Creatinine (0.6-1.4) mg/dl Est Cr Clr Drug Dosing ml/min Est GFR ( Amer) Est GFR (Non-Af Amer) BUN/Creatinine Ratio (10-20) Glucose (70-99) mg/dl Lactate (0.4-2.0) mmol/L Calcium (8.5-10.1) mg/dl Magnesium (1.8-2.4) mg/dl Total Bilirubin (0.2-1) mg/dl AST (15-37) U/L ALT (12-78) U/L Alkaline Phosphatase (45-117) U/L Troponin I (0-0.045) ng/ml Total Protein (6.4-8.2) gm/dl Albumin (3.4-5.0) gm/dl Globulin (2.5-4.0) gm/dl Albumin/Globulin Ratio (0.9-2) Procalcitonin (0-0.5) ng/ml Adenovirus (PCR) Not Detected (NotDetected) B. pertussis DNA (PCR) Not Detected (NotDetected) B.parapertussis DNA PCR Not Detected (NotDetected) C. pneumoniae DNA (PCR) Not Detected (NotDetected) Coronavirus OC43 (PCR) Not Detected (NotDetected) Coronavirus HKU1 (PCR) Not Detected (NotDetected) Coronavirus 229E (PCR) Not Detected (NotDetected) COVID-19 Eval Order Dup asRespPanOrdered COVID-19 PCR DETECTED A* (NotDetected) Coronavirus NL63 (PCR) Not Detected (NotDetected) Human Metapneumovir PCR Not Detected (NotDetected) Influenza Type A (PCR) Not Detected (NotDetected) Influ A Molecular Assay Influenza Type B (PCR) Not Detected (NotDetected) Influ B Molecular Assay M. pneumoniae (PCR) Not Detected (NotDetected) Parainfluenza 1 (PCR) Not Detected (NotDetected) Parainfluenza 2 (PCR) Not Detected (NotDetected) Parainfluenza 3 (PCR) Not Detected (NotDetected) Parainfluenza 4 (PCR) Not Detected (NotDetected) RSV (PCR) Not Detected (NotDetected) Entero/Rhino (PCR) Not Detected (NotDetected) Administered Medications Discontinued Medications Sodium Chloride (Nss 1000ml) 1,000 mls @ 999 mls/hr IV .[id number] ONE Stop: 01/09/20 18:00 Last Admin: 01/09/20 17:59 Dose: 999 mls/hr Documented by: [id number] Cefepime HCl (Maxipime) 2,000 mg in 20 mls @ 5 mls/min IV NOW STA; Protocol Stop: 01/09/20 17:06 Last Admin: 01/09/20 17:59 Dose: 5 mls/min Documented by: [id number] Imaging Data Radiologist's Impression: Patient: HANG LYLES Admit Date: 01/09/20 MR#: [id number] Address1: [address] [place] [address] Acct ID:[id number] Address2: Date: 1965 [facility] Zip: [place] [address] Age: 54 Location: ED Sex: M Room/Bed: Att Phy: Diagnosis: PAIN IN KIDNEYS-HARD TIME BREATHING-CHILLS [place] Phy: PCP,NO Service Date: 01/09/20 Fam Phy: Interpreting Phy: Chaz Mcgowan Admit Phy: Ordering Phy: Saurav Packer DO cc: ~ XR chest 1V portable HISTORY: 54 years-old Male SEPSIS acute sepsis COMPARISON: Chest and rib radiographs 12/24/2017 TECHNIQUE: Portable AP view of the chest FINDINGS: Chronic moderate to marked right hemidiaphragmatic elevation. Unchanged cardiomegaly. No pneumothorax. Bilateral peripheral predominant reticular and consolidative opacities are new from prior. No large pleural effusion or overt pulmonary edema. Degenerative changes of the shoulders and spine. IMPRESSION: 1. Bilateral peripheral predominant reticular and consolidative opacities are suggestive of infectious or inflammatory pneumonitis such as viral pneumonia. 2. Chronic right hemidiaphragmatic elevation. ACT 112: Negative or not required by law. The above report was generated using voice recognition software. It may contain grammatical, syntax or spelling errors. Electronically signed by: Cabrera Mcgowan M.D. 01/09/2020 7:00 PM Dictated: 01/09/201854 Transcribed: 01/09/201854 Blood Pressure Blood Pressure Findings: Elevated blood pressure Blood Pressure Disposition: further management by hospitalist Discharge Plan Visit Data Chief Complaint: Flank Pain Stated Complaint: PAIN IN KIDNEYS-HARD TIME BREATHING-CHILLS ED Provider: Saurav Packer Discharge Problem: Pneumonia, Hypoxia, COVID-19 virus infection Patient Disposition: Being Evaluated by Hospitalist Condition: Good Forms Stand Alone Forms: [employer] Prescriptions Prescriptions: No Action No Known Home Medications RF: 0 Referrals Referrals: PCP,NO [Primary Care Provider] -
[2020-01-09 18:03] LABS: INR 1.1 (0.9-1.1); Partial Thromboplastin Ratio 1.3; Partial Thromboplastin Time 35.9 Seconds (21.0-31.0); Prothrombin Time 11.2 Seconds (9.0-12.0)
[2020-01-09 18:09] LABS: Alanine Aminotransferase 53 U/L (12-78); Albumin Level 4.3 gm/dl (3.4-5.0); Aspartate Aminotransferase 47 U/L (15-37); BUN Creatinine Ratio 13.7 (10-20); Blood Urea Nitrogen 25 mg/dl (7-18); Calcium 8.5 mg/dl (8.5-10.1); Carbon Dioxide 22 mmol/L (21-32); Chloride 107 mmol/L (98-107); Creatinine Clr Calc Pharmacy 59.3 ml/min; Est GFR (African American) 47.4; Est GFR (Non-African American) 40.9; Glucose 92 mg/dl (70-99); Magnesium 2.4 mg/dl (1.8-2.4); Sodium 137 mmol/L (136-145)
[2020-01-09 18:14] LABS: Albumin Globulin Ratio 0.9 (0.9-2); Alkaline Phosphatase 53 U/L (45-117); Bilirubin,Total 0.4 mg/dl (0.2-1); Globulin 4.7 gm/dl (2.5-4.0); Troponin I < 0.015 ng/ml (0-0.045)
--- NOTE | 2020-01-09 19:01 | XRay Report ---
XR chest 1V portable HISTORY: 54 years-old Male SEPSIS acute sepsis COMPARISON: Chest and rib radiographs 12/24/2017 TECHNIQUE: Portable AP view of the chest FINDINGS: Chronic moderate to marked right hemidiaphragmatic elevation. Unchanged cardiomegaly. No pneumothorax . Bilateral peripheral predominant reticular and consolidative opacities are new from prior. No large pleural effusion or overt pulmonary edema. Degenerative changes of the shoulders and spine. IMPRESSION: 1. Bilateral peripheral predominant reticular and consolidative opacities are suggestive of infectiou s or inflammatory pneumonitis such as viral pneumonia. 2. Chronic right hemidiaphragmatic elevation. ACT 112: Negative or not required by law. The above report was generated using voice recognition software. It may contain grammatical, syntax o r spelling errors. Electronically signed by: Cabrera Mcgowan M.D. 01/09/2020 7:00 PM
[2020-01-09] MEDS ORDERED: DEXAMETHASONE SOD INJ 10 MG/ML VIAL IV ONE (19:15)
[2020-01-09 19:16] LABS: Adenovirus PCR Not Detected (NotDetected); Bordetella parapertussis PCR Not Detected (NotDetected); Bordetella pertussis PCR Not Detected (NotDetected); Chlamydia pneumoniae PCR Not Detected (NotDetected); Coronavirus 229E PCR Not Detected (NotDetected); Coronavirus HKU1 PCR Not Detected (NotDetected); Coronavirus NL63 PCR Not Detected (NotDetected); Coronavirus OC43PCR Not Detected (NotDetected); Human Metapneumovirus PCR Not Detected (NotDetected); Influenza A PCR Not Detected (NotDetected); Influenza B PCR Not Detected (NotDetected); Mycoplasma pneumoniae PCR Not Detected (NotDetected); Parainfluenza Virus 1 PCR Not Detected (NotDetected); Parainfluenza Virus 2 PCR Not Detected (NotDetected); Parainfluenza Virus 3 PCR Not Detected (NotDetected); Parainfluenza Virus 4 PCR Not Detected (NotDetected); Respiratory Syncytial VirusPCR Not Detected (NotDetected); Rhinovirus/Enterovirus PCR Not Detected (NotDetected)
[2020-01-09 19:20] LABS: Coronavirus CoV-2 (COVID19)PCR DETECTED (NotDetected)
--- NOTE | 2020-01-09 20:33 | History & Physical Report ---
Date of Service January 09, 2020 Assessment & Plan (1) Pneumonia due to COVID-19 virus: Pneumonia due to COVID-19 virus with hypoxia- Admit to monitored bed, negative pressure. Decadron 6 mg IV every 12 hours Convalescent plasma x1, consent obtained. Remdesivir IV per protocol Ventolin HFA 2 puffs 4 times daily, every 2 hours as needed Ceftriaxone 1 g IV daily Azithromycin 500 mg IV daily NSS at 80 mils per hour Present on Admission?: Yes (2) Hypoxia: Initial pulse oximetry was 85% room air, and with 4 L nasal cannula oxygen, improved to 91%. Present on Admission?: Yes (3) Acute kidney injury superimposed on chronic kidney disease: Creatinine 1.82 upon admission, with baseline 1.52. Placed on NSS at 80 mils per hour, repeat laboratories in a.m. Present on Admission?: Yes (4) Thrombocytopenia: Follow with serial laboratories Present on Admission?: Yes History of Present Illness Chief Complaint: The patient presents to the emergency department with complaint of fever and intermittently productive cough gradually worsening over the past week, and more recently has developed some exertional chest discomfort Primary Care Provider: NO PCP The patient is a 54-year-old male with a past medical history including closure of PFO, hypertension, osteoarthritis who presents with symptoms as noted above. Work-up in the emergency department included a COVID-19 test which was positive, platelets 103, hemoglobin 13.6, creatinine 1.82 with baseline 1.52, and a temperature of 101.7. Allergies Allergy/AdvReac Type Severity Reaction Status Date / Time furosemide Allergy Severe SCROTAL Verified 01/09/20 20:51 SWELLING naproxen Allergy Mild SWELLING Verified 01/09/20 20:51 ofloxacin Allergy Unknown Unknown Verified 01/09/20 20:51 oxacillin Allergy Unknown Unknown Verified 01/09/20 20:51 Home Medications Home Medications Medication Instructions Recorded Confirmed Type No Known Home Medications 12/24/17 01/09/20 History Past Med/Surg History Medical History Closure of patent foramen ovale (10/07/11) Encounter for medication refill Shoulder pain, left Swelling of abdominal wall Social History Smoking Status: Former smoker Second Hand Exposure: Yes; Do You Dip or Chew Tobacco: Yes; Tobacco Cessation Education Requested by Patient: No Hx Alcohol Use: Yes Alcohol type: beer Hx Substance Use: Yes Last Used Substance Other:: 3 years ago Preferred Language: Lao Communication Ability: Effective Fuel Operator Required: No Beliefs That Will Affect Care: None Current Living Situation: Family Other Information That Helps Us Care for You: No Feels Safe at Home: Yes Safety Concerns: Feels Safe At This Time Assistive Devices: Glasses Review of Systems Review of Systems: The patient denies palpitations, lower extremity swelling, sore throat, fevers, chills, sweats, nausea, vomiting, diarrhea , constipation, abdominal pain, pelvic pain, blood in urine or stool, dysuria, urinary frequency or urgency, lightheadedness, dizziness, headache, memory loss, loss of consciousness, rash, abnormal bruising or bleeding, imbalance, focal or generalized weakness, numbness or tingling in arms or legs, generalized arthralgias or myalgias, back or neck pain, or night sweats. The review of systems is otherwise negative other than for that already noted above, and at least 10 systems have been reviewed. Physical Exam Physical Exam: The patient is awake, alert and oriented 3, well developed and well nourished, normocephalic and atraumatic, lying in bed and in no acute distress. HEENT--PERRL, EOMI, mucous membranes and oropharynx normal. Neck--supple. No JVD. No bruits. Thyroid normal, trachea midline, no adenopathy. Heart--normal S1 and S2. No murmurs, rubs or gallops. Lungs--few coarse breath sounds bilaterally. No respiratory distress, no accessory muscle use. Abdomen--normal bowel sounds and soft. Nontender. Nondistended. Morbidly obese Extremities--no cyanosis or clubbing. No edema. Dermatologic--normal skin turgor, normal color, no abnormal lymph nodes, no rash. Neurologic--cranial nerves II through XII grossly intact. Rheumatologic--normal range of motion. Psychiatric--normal affect. Results & Data Results & Data ([facility]) Vital Signs (Past 12 Hours) Vital Signs Temp Pulse Resp BP Pulse Ox 01/09/20 18:30 93 H 28 H 146/84 H 91 01/09/20 18:00 96 H 30 H 118/87 92 11/15/20 17:41 95 H 20 116/75 93 01/09/20 17:30 98 H 30 H 01/09/20 17:18 102 H 31 H 01/09/20 16:14 101.7 F H 110 H 22 148/82 H 88 L Laboratory Results Laboratory Results WBC 6.16 K/uL (4.8-10.8) 01/09/20 17: RBC 4.02 M/uL (4.7-6.1) L 01/09/20 17:26 Hgb 13.6 g/dL (14.0-18.0) L 01/09/20 17: Hct 39.7 % (42-52) L 01/09/20 17: MCV 98.8 fL (80-100) 01/09/20 17: MCH 33.8 pg (25-34) 01/09/20 17: MCHC 34.3 g/dL (32-36) 01/09/20 17: RDW Std Deviation 52.8 fL (36.4-46.3) H 01/09/20 17: RDW Coeff of Theresa 14.5 % (11.5-14.5) 01/09/20 17: Plt Count 103 K/uL (130-400) L 01/09/20 17: MPV 10.2 fL (7.4-10.4) 01/09/20 17: Immature Gran % (Auto) 0.2 % 01/09/20 17: Neut % (Auto) 84.4 % 01/09/20 17: Lymph % (Auto) 8.9 % 01/09/20 17: Ness % (Auto) 6.3 % 01/09/20 17: Eos % (Auto) 0.0 % 01/09/20 17: Baso % (Auto) 0.2 % 01/09/20 17: Neut # (Auto) 5.20 K/uL (1.4-6.5) 01/09/20 17: Lymph # (Auto) 0.55 K/uL (1.2-3.4) L 01/09/20 17: Ness # (Auto) 0.39 K/uL (0.11-0.59) 01/09/20 17:26 Eos # (Auto) 0.00 K/uL (0-0.5) 01/09/20 17:26 Baso # (Auto) 0.01 K/uL (0-0.2) 01/09/20 17: Immature Gran # (Auto) 0.01 K/uL (0.00-0.02) 01/09/20 17: PT 11.2 Seconds (9.0-12.0) 01/09/20 17: INR 1.1 (0.9-1.1) 01/09/20 17: APTT 35.9 Seconds (21.0-31.0) H 01/09/20 17: PTT Ratio 1.3 01/09/20 17: Sodium 137 mmol/L (136-145) 01/09/20 17: Potassium 4.0 mmol/L (3.5-5.1) 01/09/20 17: Chloride 107 mmol/L (98-107) 01/09/20 17: Carbon Dioxide 22 mmol/L (21-32) 01/09/20 17:26 Anion Gap 8.0 (3-11) 01/09/20 17: BUN 25 mg/dl (7-18) H 01/09/20 17: Creatinine 1.82 mg/dl (0.6-1.4) H 01/09/20 17: Est Cr Clr Drug Dosing 59.3 ml/min 01/09/20 17: Est GFR ( Amer) 47.4 01/09/20 17: Est GFR (Non-Af Amer) 40.9 01/09/20 17: BUN/Creatinine Ratio 13.7 (10-20) 01/09/20 17: Glucose 92 mg/dl (70-99) 01/09/20 17: Lactate 0.7 mmol/L (0.4-2.0) 01/09/20 17: Calcium 8.5 mg/dl (8.5-10.1) 01/09/20 17: Magnesium 2.4 mg/dl (1.8-2.4) 01/09/20 17: Total Bilirubin 0.4 mg/dl (0.2-1) 01/09/20 17:26 AST 47 U/L (15-37) H 01/09/20 17:26 ALT 53 U/L (12-78) 01/09/20 17:26 Alkaline Phosphatase 53 U/L (45-117) 01/09/20 17:26 Troponin I < 0.015 ng/ml (0-0.045) 01/09/20 17:26 Total Protein 9.0 gm/dl (6.4-8.2) H 01/09/20 17:26 Albumin 4.3 gm/dl (3.4-5.0) 01/09/20 17: Globulin 4.7 gm/dl (2.5-4.0) H 01/09/20 17: Albumin/Globulin Ratio 0.9 (0.9-2) 01/09/20 17: Procalcitonin 0.16 ng/ml (0-0.5) 01/09/20 17:26 Adenovirus (PCR) Not Detected (NotDetected) 01/09/20 17:39 B. pertussis DNA (PCR) Not Detected (NotDetected) 01/09/20 17:39 B.parapertussis DNA PCR Not Detected (NotDetected) 01/09/20 17:39 C. pneumoniae DNA (PCR) Not Detected (NotDetected) 01/09/20 17:39 Coronavirus OC43 (PCR) Not Detected (NotDetected) 01/09/20 17:39 Coronavirus HKU1 (PCR) Not Detected (NotDetected) 01/09/20 17:39 Coronavirus 229E (PCR) Not Detected (NotDetected) 01/09/20 17:39 COVID-19 Eval Order Dup asRespPanOrdered 01/09/20 17:39 COVID-19 PCR DETECTED (NotDetected) A* 01/09/20 17:39 Coronavirus NL63 (PCR) Not Detected (NotDetected) 01/09/20 17:39 Human Metapneumovir PCR Not Detected (NotDetected) 01/09/20 17:39 Influenza Type A (PCR) Not Detected (NotDetected) 01/09/20 17:39 Influ A Molecular Assay Cancelled 01/09/20 17:39 Influenza Type B (PCR) Not Detected (NotDetected) 01/09/20 17:39 Influ B Molecular Assay Cancelled 01/09/20 17:39 M. pneumoniae (PCR) Not Detected (NotDetected) 01/09/20 17:39 Parainfluenza 1 (PCR) Not Detected (NotDetected) 01/09/20 17:39 Parainfluenza 2 (PCR) Not Detected (NotDetected) 01/09/20 17:39 Parainfluenza 3 (PCR) Not Detected (NotDetected) 01/09/20 17:39 Parainfluenza 4 (PCR) Not Detected (NotDetected) 01/09/20 17:39 RSV (PCR) Not Detected (NotDetected) 01/09/20 17:39 Entero/Rhino (PCR) Not Detected (NotDetected) 01/09/20 17:39 Blood Type O Negative 01/09/20 22:57 Antibody Screen NEGATIVE 01/09/20 22:[address] [facility], [id number] XRay Report Patient: HANG LYLES Date: 01/09/20MR#: [id number]: [id number] FURNACE RDAcct ID:[id number]: Date: 1965[facility] Zip: [place], [place] [address]Djc: 54Location: EDSex: MRoom/Bed:Att Phy:Diagnosis: PAIN IN KIDNEYS-HARD TIME BREATHING-CHILLSPri Phy: PCP,NOService Date: 01/09/20Fam Phy:Interpreting Phy: Chaz McgowanAdmit Phy: Ordering Phy: Saurav Packer DO cc: ~ XR chest 1V portable HISTORY: 54 years-old Male SEPSIS acute sepsis COMPARISON: Chest and rib radiographs 12/24/2017 TECHNIQUE: Portable AP view of the chest FINDINGS: Chronic moderate to marked right hemidiaphragmatic elevation. Unchanged cardiomegaly. No pneumothorax. Bilateral peripheral predominant reticular and consolidative opacities are new from prior. No large pleural effusion or overt pulmonary edema. Degenerative changes of the shoulders and spine. IMPRESSION: 1. Bilateral peripheral predominant reticular and consolidative opacities are suggestive of infectious or inflammatory pneumonitis such as viral pneumonia. 2. Chronic right hemidiaphragmatic elevation. ACT 112: Negative or not required by law. The above report was generated using voice recognition software. It may contain grammatical, syntax or spelling errors. Electronically signed by: Cabrera Mcgowan M.D. 01/09/2020 7:00 PM Dictated: 01/09/201854Transcribed: 01/09/201854 Code Status & VTE Plan Code Status Full code VTE Prophylaxis Plan VTE Prophylaxis will be ordered: Yes PG Care Time/CCT Total # of Minutes Spent Total Time Spent with Patient: Total time spent is greater than 50% in coordination of care (as documented) at patient's floor/unit and/or counseling patient: Coding Level of Care Code 92429 Initial Inpt Care Lvl 3 Diagnoses Pneumonia due to COVID-19 virus U07.1; J12.89 Hypoxia R09.02 Acute kidney injury superimposed on chronic kidney disease N17.9; N18.9 Thrombocytopenia D69.6
[2020-01-09] MEDS ORDERED: ONDANSETRON INJ 2 MG/ML 2 ML VIAL IV PRN (22:36)
[2020-01-09] MEDS ORDERED: ACETAMINOPHEN 325 MG TAB PO PRN (22:36)
[2020-01-09] MEDS ORDERED: MAGNESIUM HYDROXIDE SUSP 30 ML UDC PO PRN (22:36)
[2020-01-09] MEDS ORDERED: ALUMINUM/MAGNESIUM SUSP 30 ML UDC PO PRN (22:36)
[2020-01-09] MEDS ORDERED: INFLUENZA VIRUS QUAD VACCINE 0.5 ML SYR IM ONE (23:06)
[2020-01-09] MEDS ORDERED: INFLUENZA ADMINISTRATION CHARGE ONE (23:06)
[2020-01-09] MEDS: ALBUTEROL HFA 8 GM INHALER INH SCH (23:19)
[2020-01-10] MEDS ORDERED: REMDESIVIR 200 MG in SODIUM CHLORIDE 0.9% 210 ML IV SCH
[2020-01-10] MEDS: SODIUM CHLORIDE 0.9% 1000ML 1,000 ML IV SCH ×2 (03:48→13:11)
[2020-01-10] MEDS: SODIUM CHLORIDE 0.9% 10ML FLUSH IV SCH (05:59)
[2020-01-10 06:50] LABS: Appearance Urine Clear (Clear); Bacteria Urine Automated Negative (Negative); Bilirubin Urine Negative (Negative); Blood Urine 1+ (Negative); Color Urine Yellow; Glucose Urine UA Negative (Negative); Ketones Urine Negative (Negative); Leukocyte Esterase Urine Negative (Negative); Nitrite Urine Negative (Negative); Protein Urine 2+ (Negative); RBC Urine Automated 0-4 /hpf (0-4); Specific Gravity Urine 1.013 (1.000-1.030); Urobilinogen Urine Negative (Negative); pH Urine 5.5 (4.5-7.5)
[2020-01-10 07:19] LABS: Albumin Level 3.8 gm/dl (3.4-5.0); BUN Creatinine Ratio 14.3 (10-20); Creatinine Clr Calc Pharmacy 66.8 ml/min; Est GFR (Non-African American) 47.4; Phosphorus 3.8 mg/dl (2.5-4.9); Potassium 4.5 mmol/L (3.5-5.1)
[2020-01-10] MEDS: ALBUTEROL HFA 8 GM INHALER INH SCH ×4 (07:23→19:53)
[2020-01-10] MEDS: DEXAMETHASONE SOD PHOSPHATE 6 MG in SYRINGE 0 ML IV SCH (08:16)
[2020-01-10] MEDS: cefTRIAXone SODIUM 2,000 MG in DEXTROSE 5% 50 ML IV SCH (08:17)
[2020-01-10] MEDS ORDERED: DEXAMETHASONE SOD INJ 10 MG/ML VIAL IV SCH (09:00)
--- NOTE | 2020-01-10 09:35 | Hospitalist Progress Note ---
Date of Service January 10, 2020 Assessment & Plan (1) Pneumonia due to COVID-19 virus: Pneumonia due to COVID-19 virus with hypoxia- Decadron 6 mg IV every 12 hours Convalescent plasma x1, consent obtained. Remdesivir IV per protocol Ventolin HFA 2 puffs 4 times daily, every 2 hours as needed Ceftriaxone 1 g IV daily complete 1 week course Azithromycin 500 mg IV daily pleat 5-day course (2) Hypoxia: Initial pulse oximetry was 85% room air, and now is on 15 L oxygen mask if intolerant of this will need to the high flow oxygen (3) Acute kidney injury superimposed on chronic kidney disease: Creatinine 1.82 upon admission, with baseline 1.52. Stop IV fluids to try to avoid any pulmonary edema. (4) Thrombocytopenia: Follow with serial laboratories Admission and Anticipated Discharge Date Admission Date: January 09, 2020 Subjective Patient is feeling well despite being on 15 L oxygen by oxygen mask. He is maintaining saturations in the low 90s. He does feel breathless when he tries to exert himself in his room he has a very scant cough Review of Systems Review of Systems: Mild distress and fatigue no headache, blurry or double vision no speech or swallowing issues no chest pain, pressure or palpitations Persistent dyspnea with a scant cough no abdominal pain, nausea or vomiting, diarrhea or constipation no dysuria, hematuria or frequency no focal joint pain or swelling no back pain, CVA tenderness or radicular pain no bruising, bleeding or rashes no focal signs of weakness or numbness or altered sensation no complaints of anxiety or depression. Physical Exam Physical Exam: The patient appeared well nourished and normally developed. He is in mild to moderate respiratory distress Vital signs as documented. Head exam is normocephalic atraumatic no scleral icterus Neck is without JVD, thyromegaly, or carotid bruits. Lungs are coarse bilaterally Cardiac exam, Rhythm is regular.. No murmurs, rubs or gallops. Abdominal exam reveals normal bowel sounds, soft non tender, no masses Extremities are nonedematous and both pedal pulses are present Neurologic exam is alert and oriented, no focal loss of strength or sensation Skin is without bruises or rashes Psychologically is without concerns for anxiety or depression. Results & Data Results & Data ([facility]) Vital Signs (Past 12 Hours) Vital Signs Temp Pulse Pulse Resp BP BP Pulse Ox 01/10/20 07:23 77 18 87 L 01/10/20 07:16 98.1 F 81 19 129/83 90 01/10/20 03:40 98.8 F 90 22 131/70 89 L 01/10/20 03:03 84 18 141/83 H 87 L 01/10/20 02:33 98.1 F 88 24 132/80 89 L 01/10/20 02:18 98.1 F 87 20 149/90 H 89 L 01/10/20 02:17 98.2 F 88 22 149/90 H 88 L 01/10/20 02:00 98.8 F 89 20 153/84 H 86 L 01/09/20 23:59 100 H 01/09/20 23:22 94 H 18 91 01/09/20 22:39 98.1 F 98 H 28 H 188/91 H 89 L 01/09/20 22:31 98.1 F 104 H 24 188/91 H 85 L PG Care Time/CCT Total # of Minutes Spent Total Time Spent with Patient: Total time spent is greater than 50% in coordination of care (as documented) at patient's floor/unit and/or counseling patient: Coding Level of Care Code 61593 Subseq Hosp Care Lvl 3 Diagnoses Pneumonia due to COVID-19 virus U07.1; J12.89 Hypoxia R09.02 Acute kidney injury superimposed on chronic kidney disease N17.9; N18.9 Thrombocytopenia D69.6
[2020-01-10] MEDS: AZITHROMYCIN 500 MG in DEXTROSE 5% 250 ML IV SCH (09:43)
--- NOTE | 2020-01-10 13:21 | Electrocardiogram Report ---
Test Reason : Blood Pressure : / mmHG Vent. Rate : 104 BPM Atrial Rate : 104 BPM P-R Int : 154 ms QRS Dur : 084 ms QT Int : 332 ms P-R-T Axes : 051 060 073 degrees QTc Int : 436 ms Poor data quality, interpretation may be adversely affected Sinus tachycardia Otherwise normal ECG When compared with ECG of 06-JUL-2017 16:10, T wave amplitude has decreased in Lateral leads Confirmed by Saurav Beasley ([id number]) on 01/10/2020 1:21:00 PM Referred By: REFERRED SELF Confirmed By:Saurav Beasley
[2020-01-11] MEDS: REMDESIVIR 100 MG in SODIUM CHLORIDE 0.9% 230 ML IV SCH ×2 (00:36→23:48)
[2020-01-11] MEDS: SODIUM CHLORIDE 0.9% 10ML FLUSH IV SCH (01:00)
[2020-01-11] MEDS: ALBUTEROL HFA 8 GM INHALER INH SCH ×4 (07:17→20:10)
[2020-01-11 08:24] LABS: Albumin Level 3.8 gm/dl (3.4-5.0); BUN Creatinine Ratio 17.4 (10-20); Calcium 8.5 mg/dl (8.5-10.1); Creatinine Clr Calc Pharmacy 65.6 ml/min; Est GFR (African American) 53.8; Est GFR (Non-African American) 46.4; Phosphorus 3.4 mg/dl (2.5-4.9); Potassium 4.6 mmol/L (3.5-5.1)
[2020-01-11] MEDS: DEXAMETHASONE SOD PHOSPHATE 6 MG in SYRINGE 0 ML IV SCH (08:40)
[2020-01-11] MEDS: ZINC SULFATE 220 MG CAPSULE PO SCH (08:40)
[2020-01-11] MEDS: cefTRIAXone SODIUM 2,000 MG in DEXTROSE 5% 50 ML IV SCH (08:40)
[2020-01-11] MEDS: AZITHROMYCIN 500 MG in DEXTROSE 5% 250 ML IV SCH (08:41)
--- NOTE | 2020-01-11 16:28 | Hospitalist Progress Note ---
Date of Service January 11, 2020 Assessment & Plan (1) Pneumonia due to COVID-19 virus: Pneumonia due to COVID-19 virus with hypoxia- Decadron 6 mg IV daily Convalescent plasma x1, consent obtained. Remdesivir IV per protocol Ventolin HFA 2 puffs 4 times daily, every 2 hours as needed Ceftriaxone 1 g IV daily complete 1 week course Azithromycin 500 mg IV daily pleat 5-day course (2) Hypoxia: Initial pulse oximetry was 85% room air, and now is on 15 L oxygen mask if intolerant of this will need to the high flow oxygen (3) Acute kidney injury superimposed on chronic kidney disease: Creatinine 1.82 upon admission, with baseline 1.52. Stop IV fluids to try to avoid any pulmonary edema Cr remains in 1.6 range (4) Thrombocytopenia: Follow with serial laboratories Admission and Anticipated Discharge Date Admission Date: January 09, 2020 Subjective Pts oxygen saturation did fall despite maximum oxymask therapy and we have moved to hi flow oxygen, now trying to sleep on his abdomen. overall does not seem to be in significant distress despite his profound hypoxia, with exception of tachypnea Review of Systems Review of Systems: Mild distress and fatigue no headache, blurry or double vision no speech or swallowing issues no chest pain, pressure or palpitations remains with persistent dyspnea with a scant cough no abdominal pain, nausea or vomiting, diarrhea or constipation no dysuria, hematuria or frequency no focal joint pain or swelling no back pain, CVA tenderness or radicular pain no bruising, bleeding or rashes no focal signs of weakness or numbness or altered sensation no complaints of anxiety or depression. Physical Exam Physical Exam: The patient appeared well nourished and normally developed. He is in mild to moderate respiratory distress Vital signs as documented. Head exam is normocephalic atraumatic no scleral icterus Neck is without JVD, thyromegaly, or carotid bruits. Lungs remain coarse bilaterally Cardiac exam, Rhythm is regular.. No murmurs, rubs or gallops. Abdominal exam reveals normal bowel sounds, soft non tender, no masses Extremities are nonedematous and both pedal pulses are present Neurologic exam is alert and oriented, no focal loss of strength or sensation Skin is without bruises or rashes Psychologically is without concerns for anxiety or depression. Results & Data Results & Data ([facility]) Vital Signs (Past 12 Hours) Vital Signs Temp Pulse Pulse Resp BP Pulse Ox 01/11/20 16:00 82 01/11/20 15:29 98.1 F 81 16 159/90 H 90 01/11/20 15:27 80 20 90 01/11/20 11:39 82 20 88 L 01/11/20 10:49 97.7 F 85 18 150/86 H 89 L 01/11/20 08:00 82 01/11/20 07:32 82 22 88 L 01/11/20 07:29 97.7 F 79 18 162/96 H 88 L 01/11/20 07:18 80 18 85 L 01/11/20 04:26 98.6 F 80 22 138/77 88 L PG Care Time/CCT Total # of Minutes Spent Total Time Spent with Patient: Total time spent is greater than 50% in coordination of care (as documented) at patient's floor/unit and/or counseling patient: Coding Level of Care Code 04890 Subseq Hosp Care Lvl 3 Diagnoses Pneumonia due to COVID-19 virus U07.1; J12.89 Hypoxia R09.02 Acute kidney injury superimposed on chronic kidney disease N17.9; N18.9 Thrombocytopenia D69.6
[2020-01-12] MEDS: SODIUM CHLORIDE 0.9% 10ML FLUSH IV SCH (04:41)
[2020-01-12] MEDS: ALBUTEROL HFA 8 GM INHALER INH SCH ×4 (07:47→20:22)
[2020-01-12 08:14] LABS: BUN Creatinine Ratio 20.1 (10-20); Calcium 8.8 mg/dl (8.5-10.1); Creatinine Clr Calc Pharmacy 61.1 ml/min; Est GFR (African American) 49.4; Est GFR (Non-African American) 42.6; Potassium 4.3 mmol/L (3.5-5.1)
[2020-01-12 08:17] LABS: Phosphorus 2.8 mg/dl (2.5-4.9)
[2020-01-12] MEDS: cefTRIAXone SODIUM 2,000 MG in DEXTROSE 5% 50 ML IV SCH (08:36)
[2020-01-12] MEDS: DEXAMETHASONE SOD PHOSPHATE 6 MG in SYRINGE 0 ML IV SCH (08:36)
[2020-01-12] MEDS: ZINC SULFATE 220 MG CAPSULE PO SCH (08:36)
[2020-01-12] MEDS: AZITHROMYCIN 500 MG in DEXTROSE 5% 250 ML IV SCH (08:36)
[2020-01-12] MEDS ORDERED: BUMETANIDE 0.5 MG in SYRINGE 0 ML IV ONE (12:00)
--- NOTE | 2020-01-12 18:53 | Hospitalist Progress Note ---
Date of Service January 12, 2020 Assessment & Plan (1) Pneumonia due to COVID-19 virus: Pneumonia due to COVID-19 virus with hypoxia- Decadron 6 mg IV daily x10 days Convalescent plasma x1, administered Remdesivir IV per protocol Ventolin HFA 2 puffs 4 times daily, every 2 hours as needed Ceftriaxone 1 g IV daily complete 1 week course Azithromycin 500 mg IV daily pleat 5-day course Attempted improving aeration with 1 dose of budesonide at 1800 on 01/11 is at least volume neutral with ins and outs (2) Hypoxia: Initial pulse oximetry was 85% room air, and now is on that and also BiPAP (3) Acute kidney injury superimposed on chronic kidney disease: Creatinine 1.82 upon admission, with baseline 1.52. Did give 1 dose of Bumex (4) Thrombocytopenia: Follow with serial laboratories Admission and Anticipated Discharge Date Admission Date: January 09, 2020 Subjective Patient seems not significantly bothered by his hypoxia. He did do better on BiPAP but did not tolerated on oxygen mask he actually is in the high 80s. We did give a dose of Bumex today due to an Lasix allergy to try to improve any aeration from pulmonary edema. He does not have any history of the same. He did receive convalescent plasma remdesivir and dexamethasone Review of Systems Review of Systems: Mild distress and fatigue no headache, blurry or double vision no speech or swallowing issues no chest pain, pressure or palpitations remains with persistent dyspnea with a scant cough no abdominal pain, nausea or vomiting, diarrhea or constipation no dysuria, hematuria or frequency no focal joint pain or swelling no back pain, CVA tenderness or radicular pain no bruising, bleeding or rashes no focal signs of weakness or numbness or altered sensation no complaints of anxiety or depression. Physical Exam Physical Exam: The patient appeared well nourished and normally developed. He is in mild to moderate respiratory distress Vital signs as documented. Head exam is normocephalic atraumatic no scleral icterus Neck is without JVD, thyromegaly, or carotid bruits. Lungs remain coarse bilaterally with bilateral rales Cardiac exam, Rhythm is regular.. No murmurs, rubs or gallops. Abdominal exam reveals normal bowel sounds, soft non tender, no masses Extremities are nonedematous and both pedal pulses are present Neurologic exam is alert and oriented, no focal loss of strength or sensation Skin is without bruises or rashes Psychologically is without concerns for anxiety or depression. Results & Data Results & Data ([facility]) Vital Signs (Past 12 Hours) Vital Signs Temp Pulse Pulse Resp BP Pulse Ox Pulse Ox 01/12/20 18:00 81 L 01/12/20 16:00 79 01/12/20 15:56 98.3 F 83 18 149/97 H 88 L 01/12/20 15:11 94 H 20 91 01/12/20 11:17 88 88 32 H 90 01/12/20 11:09 97.3 F L 88 18 161/102 H 89 L 01/12/20 08:00 77 01/12/20 07:48 81 18 89 L 01/12/20 07:16 98.1 F 80 19 154/99 H 89 L PG Care Time/CCT Total # of Minutes Spent Total Time Spent with Patient: Total time spent is greater than 50% in coordination of care (as documented) at patient's floor/unit and/or counseling patient: Coding Level of Care Code 18365 Subseq Hosp Care Lvl 3 Diagnoses Pneumonia due to COVID-19 virus U07.1; J12.89 Hypoxia R09.02 Acute kidney injury superimposed on chronic kidney disease N17.9; N18.9 Thrombocytopenia D69.6
[2020-01-13] MEDS: REMDESIVIR 100 MG in SODIUM CHLORIDE 0.9% 230 ML IV SCH ×2 (00:11→23:45)
[2020-01-13] MEDS: SODIUM CHLORIDE 0.9% 10ML FLUSH IV SCH (01:27)
[2020-01-13] MEDS ORDERED: LORazepam 1 MG/2 ML VIAL IV STA (05:12)
[2020-01-13 07:03] LABS: Base Excess ABG -1.5 mEq/L (-9-1.8); HCO3 ABG 24 mmol/L (19-24); PCO2 ABG 43 mmHg (35-46); PO2 ABG 54 mmHg (80-95); pH ABG 7.36 (7.35-7.45)
[2020-01-13 07:04] LABS: Allen Test Pos (Pos)
[2020-01-13] MEDS: ALBUTEROL HFA 8 GM INHALER INH SCH ×2 (07:20→11:07)
--- NOTE | 2020-01-13 07:23 | XRay Report ---
XR chest 1V portable HISTORY: 54 years-old Male sob acute shortness of breath COMPARISON: Chest radiograph 01/09/2020. TECHNIQUE: Portable AP view of the chest FINDINGS: Cardiac silhouette is enlarged. Chronic right hemidiaphragm elevation. No pneumothorax. Progressively worsened bilateral mixed interstitial and alveolar opacities. No large pleural effusion. Linear righ t upper lung consolidation suggests atelectasis. Degenerative changes of the shoulders and spine. Par tially imaged cervical spinal fusion hardware. IMPRESSION: 1. Progressively worsened bilateral mixed interstitial and alveolar opacities are suggestive of a wor sening multifocal pneumonia. Superimposed pulmonary edema would be difficult to exclude. 2. Cardiomegaly with chronic right hemidiaphragmatic elevation. ACT 112: Negative or not required by law. The above report was generated using voice recognition software. It may contain grammatical, syntax o r spelling errors. Electronically signed by: Cabrera Mcgowan M.D. 01/13/2020 7:22 AM
[2020-01-13 07:48] LABS: D Dimer 720 ug/L FEU (0-500)
[2020-01-13] MEDS: cefTRIAXone SODIUM 2,000 MG in DEXTROSE 5% 50 ML IV SCH (08:30)
[2020-01-13] MEDS: AZITHROMYCIN 500 MG in DEXTROSE 5% 250 ML IV SCH (09:15)
[2020-01-13] MEDS: DEXAMETHASONE SOD PHOSPHATE 6 MG in SYRINGE 0 ML IV SCH (09:15)
[2020-01-13] MEDS: ZINC SULFATE 220 MG CAPSULE PO SCH (09:16)
[2020-01-13] MEDS ORDERED: RAPID SEQUENCE INDUCTION BAG ONE (09:51)
[2020-01-13] MEDS ORDERED: PROPOFOL IV EMULSION 10 MG/ML 100 ML VIAL IV ONE ×2 (09:59→12:35)
--- NOTE | 2020-01-13 09:59 | Critical Care Consultation ---
Date of Consultation January 13, 2020 Assessment & Plan (1) Pneumonia due to COVID-19 virus: Chest x-ray 01/13/2020 personally reviewed: Fair inspiratory effort, significant elevation of the right hemidiaphragm, bilateral alveolar opacities appreciated including retrocardiac. Increased cardiac silhouette. Mild blunting of bilateral costophrenic angles. Patient has had elevated right hemidiaphragm for couple of years. Etiology is unknown. -- VDRF Likely secondary to multilobar pneumonia secondary to COVID-19 Continue with ventilatory support Keep RASS -1 Daily sedation holidays and SBT's Chlorhexidine mouthwash -- ARDS Continue with lung protective ventilation High PEEP, low tidal volume to keep Plateau < 30 with permissive hypercapnea if need be. Monitor ABGs Influenza A/B- COVID-19 Continue with dexamethasone 6 mg for total of 10 days Patient is not a candidate for remdesivir given the CKD LDH 630, CRP 1.21, ESR 41, BNP 60 Procalcitonin 0.06 If CRP is elevated will think about giving Tocilizumab --OZZY on CKD Monitor BUN/creatinine Avoid nephrotoxic medications Strict ins and outs --Transaminitis Could be from hypoxia --Thrombocytopenia Could be from sepsis Monitor --Elevated right hemidiaphragm Chronic --Morbid obesity --Prophylaxis VTE: Heparin drip GI: Protonix Lines: Left IJ, left radial, positive Martinez Diet: N.p.o. Plan: Follow-up procalcitonin. BNP, ESR, CRP, LDH Patient does have COVID-19 and is a hypercoagulable state, the likelihood of having a PE is low given there are infiltrates appreciated on the chest x-ray. Okay with heparin drip. Patient's daughter Jessenia was called at [phone]. She was updated regarding the status of her father. I did explain to her that he is requiring high support from the ventilator. We are going to give everything that we have in mind need to possibly transfer him if need be. In case of his heart stopping doing CPR would not be beneficial. She understands and would not like to have CPR done when time comes. Continue with the rest of the care. I have personally spent 68 minutes of critical care time in the direct management of this patient. This is a life/limb threatening event. This includes time spent evaluating patient, direct bedside care, chart review, placing orders, interpretation of diagnostic studies, discussion with consultants, patient, and family members, as well as other required patient management activities. This time is exclusive of all separately billable procedures, and teaching time and separate from and in addition to any other critical care service time. Please note the above document was generated using voice recognition software. It may contain grammatical, syntax or spelling errors. (2) Thrombocytopenia: (3) Acute kidney injury superimposed on chronic kidney disease: (4) Hypoxia: History of Present Illness Attending Physician: Fletcher Lang MD History of Present Illness 54 male with past medical history of hypertension, osteoarthritis of the cervical spine s/p management, CKD presented to the hospital for COVID-19 pneumonia. Initially patient had multi lobar groundglass opacities appreciated on the chest x-ray. Patient also has chronically elevated right hemidiaphragm. Case was discussed to me by Dr. Lang He was on the Covid unit requiring 100% high flow and tachypneic on it. Patient was given a trial of BiPAP but he failed still tachypneic on BiPAP in the high 30s. Plan to intubate the patient was made. He was intubated by anesthesia. After intubation patient was on PEEP of 18 still saturating in the low 80s. History obtained from previous chart. Allergies Allergy/AdvReac Type Severity Reaction Status Date / Time furosemide Allergy Severe SCROTAL Verified 01/09/20 20:51 SWELLING naproxen Allergy Mild SWELLING Verified 01/09/20 20:51 ofloxacin Allergy Unknown Unknown Verified 01/09/20 20:51 oxacillin Allergy Unknown Unknown Verified 01/09/20 20:51 Home Medications Medication Instructions Recorded Confirmed Type No Known Home Medications 12/24/17 01/09/20 History Patient History Medical History Closure of patent foramen ovale (10/07/11) Encounter for medication refill Shoulder pain, left Swelling of abdominal wall Social History Smoking Status: Former smoker Second Hand Exposure: Yes; Do You Dip or Chew Tobacco: Yes; Tobacco Cessation Education Requested by Patient: No Hx Alcohol Use: Yes Alcohol type: beer Hx Substance Use: Yes Last Used Substance Other:: 3 years ago Preferred Language: Tongan Communication Ability: Effective Production Assistant Required: No Beliefs That Will Affect Care: None Current Living Situation: Family Other Information That Helps Us Care for You: No Feels Safe at Home: Yes Safety Concerns: Feels Safe At This Time Assistive Devices: Oxygen - Continuous Review of Systems Review of Systems: Unobtainable due to cognitive status and Unobtainable due to endotracheal tube Physical Exam Physical Exam: Constitutional: No acute distress HEENT: PERRLA, positive ETT Respiratory system: Decreased air entry bilaterally more decreased on the right lower side, no wheeze, no rhonchi, positive crackles CVS: S1-S2 positive, no murmurs or gallops, tachycardia Abdomen: Soft, nontender, nondistended, positive bowel sounds x4, obese Extremities: +2 pulses bilaterally radialis/ dorsalis pedis, no cyanosis, no edema Neuro: Positive corneal, positive gag, positive pupillary, moving all ex tremities Psych: Unable to assess G/U: Positive Martinez Skin: no rashes, warm and dry Lymphatic: no cervical or axillary lymphadenopathy Results & Data Results & Data ([facility]) Vital Signs (Past 12 Hours) Vital Signs Temp Pulse Pulse Pulse Resp BP Pulse Ox 01/13/20 07:24 106 H 38 H 88 L 01/13/20 07:22 105 H 38 H 88 L 01/13/20 07:10 36.3 C L 99 H 24 161/96 H 85 L 01/13/20 05:02 79 30 H 88 L 01/13/20 04:33 86 28 H 88 L 01/13/20 04:02 82 28 H 87 L 01/13/20 03:45 36.4 C L 80 24 151/88 H 91 01/13/20 02:17 79 26 H 89 L 01/13/20 00:12 36.8 C 76 24 150/88 H 90 01/12/20 23:06 79 24 91 01/09/20 17:26 01/12/20 06:13 Coding Level of Care Code Critical Care 1st 30-74 mins Diagnoses Pneumonia due to COVID-19 virus U07.1; J12.89 Thrombocytopenia D69.6 Acute kidney injury superimposed on chronic kidney disease N17.9; N18.9 Hypoxia R09.02 Time Spent (min) 63
[2020-01-13] MEDS ORDERED: ICU PROTOCOL FOR HYPERGLYCEMIA PRN (11:25)
[2020-01-13] MEDS ORDERED: ENOXAPARIN INJ 40 MG/0.4 ML SYR SQ SCH (11:30)
--- NOTE | 2020-01-13 11:31 | Anesthesia Procedure Note ---
Anesthesia Procedure Note Intubation Note Vital Signs: 161/96, 103, 36, 85% on 100% BiPAP, 36.3 Date of procedure: 01/13/20 Indication for intubation: Failure to oxygenate and Respiratory distress Consent: Risk / Benefits Reviewed With: PT / POA / Parent / Guardian, Accepts Plan, Informed Consent Obtained (verbal consent) and All Questions Answered Monitors attached: Blood Pressure, CO2, EKG and Pulse Oximetry Time out completed: Yes Premedication: Fentanyl (mcg) (100mcg) and Etomidate (mg) (20mg) Paralytic medication: Succinylcholine (mg) (200mg) Intubation technique: Adequate preoxygenation (extensive preoxygenation. unable to improve oxygen saturation on bipap) and RSI Equipment: Glidescope (4) View: Grade 1 Endotracheal tube: 8.0 Attempts: 1 and Atraumatic Tube placement confirmation: Positive CO2 detection Procedure Summary: COVID+ patient in acute hypoxic respiratory failure. He has a history of prolonged intubation and tracheostomy 3 years ago. Positioned and preoxygenated via bipap. Induced and intubated with 8.0ETT and GS4. Visualization of the glottis was not complicated, but passage of 8.0 tube met some resistance in the subglottic trachea which was passed with twisting maneuvers of the ET tube. Bilateral chest rise and continuous ETCO2 confirmed. Secured 24cm at the lip. Post procedure vitals acceptable. Further management and post procedure imaging per the critical care team. Post-procedure: Pt tolerates well and No complication
[2020-01-13] MEDS ORDERED: STAT IV Infusion **Titration per Protocol STA ×3 (12:50→16:05)
--- NOTE | 2020-01-13 12:51 | Procedure Note ---
Procedure Note Date of Service January 13, 2020 Procedure: Inserting ultrasound-guided central multicut line operator: Dr. Ron Young Indication: Poor access Consent: Emergent Anesthesia: 1% lidocaine without epinephrine local. Procedure: Consent was verified and timeout performed. Appropriate imaging studies were reviewed prior to the procedure. Under aseptic and sterile condition, left IJ vein was accessed under direct ultrasound guidance. Guidewire was confirmed to be within the lumen of vein with the help of ultrasound. Catheter was introduced via Seldinger technique. Guide a wire was removed. Good non-pulsatile blood flow was appreciated from all the ports. The catheter was placed at [address] in place. BioPatch was applied to the catheter and a sterile Tegaderm dressing was applied over the catheter with careful attention to sterility. Lung sliding was appreciated post procedure with the help ultrasound. Chest x-ray to follow Patient tolerated the procedure well. Blood loss: Less than 2 cc Complications: None Coding CPT Codes Tubes, Drains, and Vasc Access - Tubes, Drains, and Vasc Access: [id number] Place catheter in vein superior or inferior vena cava ([id number]) Tubes, Drains, and Vasc Access - Tubes, Drains, and Vasc Access: [id number] Ultrasound Guidance For Vascular ([id number]) [facility] [place] Procedure Codes (Charges) Tubes, Drains, and Vasc Access Procedure 1: Tubes, Drains, and Vasc Access: [id number] Place catheter in vein superior or inferior vena cava Procedure 2: Tubes, Drains, and Vasc Access: [id number] Ultrasound Guidance For Vascular
--- NOTE | 2020-01-13 12:52 | Procedure Note ---
Procedure Note Date of Service January 13, 2020 ARTERIAL LINE PROCEDURE NOTE: Procedure: Arterial Line Placement Attending: Dr. Ron Young MD Indication: Monitoring on Pressors Anesthesia: Fentanyl drip Emergency consent was applied A time-out was completed verifying correct patient, procedure, site, positioning, and implant(s) or special equipment if applicable. Allens test was performed to ensure adequate perfusion. Patients left wrist was prepped and draped in the usual sterile fashion. Ultrasound guidance was used to aid needle placement. A 20g Arrow arterial line was introduced into the left radial artery. Catheter was threaded, and the needle was removed with appropriate pulsatile blood return. Good waveform was observed on the monitor. The patient tolerated the procedure well. Confirmation of placement with ultrasound. Images saved to medical record. Complications: None Blood Loss: Less than 2 cc Coding CPT Codes Tubes, Drains, and Vasc Access - Tubes, Drains, and Vasc Access: [id number] Place Catheter In Artery ([id number]) Tubes, Drains, and Vasc Access - Tubes, Drains, and Vasc Access: [id number] Ultrasound Guidance For Vascular ([id number]) [facility] [place] (Charges) Tubes, Drains, and Vasc Access Procedure 1: Tubes, Drains, and Vasc Access: [id number] Place Catheter In Artery Procedure 2: Tubes, Drains, and Vasc Access: [id number] Ultrasound Guidance For Vascular
[2020-01-13] MEDS ORDERED: SUCCINYLCHOLINE CHLORIDE 20 MG/ML 10 ML VIAL IV STA (13:07)
[2020-01-13] MEDS ORDERED: ETOMIDATE 2 MG/ML 20 ML VIAL IV ONE ×2 (13:07→14:53)
[2020-01-13] MEDS ORDERED: fentaNYL citrate 100 MCG/2 ML VIAL IV STA (13:07)
[2020-01-13 13:18] LABS: iSTAT Art Bld Gas pCO2 Correct 58 mmHg (35-46); iSTAT Art Bld Gas pH Corrected 7.254 (7.35-7.45); iSTAT Arterial Blood Gas HCO3 26 meg/L (19-24); iSTAT Arterial Blood Gas pCO2 58 mmHg (35-46); iSTAT Arterial Blood Gas pH 7.25 (7.35-7.45); iSTAT Arterial Blood Gas pO2 42 mmHg (80-95); iSTAT Arterial Blood Gas pO2 C 42; iSTAT Carbon Dioxide 27 mmol/L (24-31); iSTAT FiO2 100 %; iSTAT Hematocrit 39 % (42-52); iSTAT Hemoglobin 13.3 g/dl (14.0-18.0); iSTAT Potassium 4.4 mmol/L (3.3-5.0); iSTAT Site Art Line; iSTAT Sodium 142 mmol/L (135-144)
--- NOTE | 2020-01-13 13:29 | XRay Report ---
XR chest 1V portable HISTORY: Central venous catheter placement. Intubation. COMPARISON: Chest 01/13/2020. FINDINGS: There are low lung volumes. Endotracheal tube terminates approximately 3.9 cm from the maribel na. Nasogastric tube terminates below the diaphragm. The tip is not included on this study. Left jugu lar central venous catheter terminates at the expected location of the SVC. No pneumothorax. Chronic elevation the right hemidiaphragm, unchanged. Bilateral airspace opacities, left greater the right, p ersist. The heart is stable in size. Cervical spinal fusion hardware is noted. IMPRESSION: 1. Satisfactory support line placement. 2. Bilateral airspace opacities persist. ACT 112: Negative or not required by law. Electronically signed by: Angel Granado M.D. 01/13/2020 1:28 PM
[2020-01-13] MEDS: fentaNYL DRIP 1,250 MCG/250 ML BAG IV SCH (13:56)
[2020-01-13] MEDS: CISATRACURIUM BESYLATE 40 MG in 0.9 % SODIUM CHLORIDE 80 ML IV SCH ×2 (14:10→21:14)
[2020-01-13 14:50] LABS: Albumin Level 3.8 gm/dl (3.4-5.0); BUN Creatinine Ratio 24.3 (10-20); C Reactive Protein 1.21 mg/dl (0-0.29); Calcium 8.4 mg/dl (8.5-10.1); Est GFR (African American) 41.8; Est GFR (Non-African American) 36.1; Potassium 4.5 mmol/L (3.5-5.1)
[2020-01-13 14:53] LABS: Albumin Globulin Ratio 0.8 (0.9-2); Bilirubin,Total 0.3 mg/dl (0.2-1); Globulin 4.7 gm/dl (2.5-4.0); Total Protein 8.5 gm/dl (6.4-8.2)
[2020-01-13] MEDS ORDERED: SUCCINYLCHOLINE CHLORIDE 20 MG/ML 10 ML VIAL IV ONE (14:53)
[2020-01-13] MEDS ORDERED: fentaNYL citrate 100 MCG/2 ML VIAL IV ONE (14:53)
[2020-01-13 15:40] LABS: iSTAT Art Bld Gas pCO2 Correct 60 mmHg (35-46); iSTAT Art Bld Gas pH Corrected 7.231 (7.35-7.45); iSTAT Arterial Blood Gas HCO3 25 meg/L (19-24); iSTAT Arterial Blood Gas pCO2 63 mmHg (35-46); iSTAT Arterial Blood Gas pH 7.22 (7.35-7.45); iSTAT Arterial Blood Gas pO2 41 mmHg (80-95); iSTAT Arterial Blood Gas pO2 C 38; iSTAT Carbon Dioxide 27 mmol/L (24-31); iSTAT FiO2 100 %; iSTAT Hematocrit 40 % (42-52); iSTAT Hemoglobin 13.6 g/dl (14.0-18.0); iSTAT Potassium 4.6 mmol/L (3.3-5.0); iSTAT Site Art Line; iSTAT Sodium 141 mmol/L (135-144)
[2020-01-13] MEDS: propofoL 1,000 MG/100 ML VIAL IV SCH ×2 (17:10→20:44)
[2020-01-13] MEDS ORDERED: ACETAMINOPHEN 1000 MG/100 ML IV IV PRN (17:14)
[2020-01-13] MEDS ORDERED: HEPARIN IV BOLUS 7,000 UNITS in SYRINGE 0 ML IV ONE (17:45)
[2020-01-13] MEDS: HEPARIN SODIUM/DEXTROSE 25,000 UNITS/500 ML BAG IV SCH (17:59)
--- NOTE | 2020-01-13 18:24 | Communication Note ---
Date of Service: January 13, 2020 Critical CARE addendum: Given that the patient was requiring high PEEP and FiO2 but still saturating in the low 80s. Plan was made to paralyze the patient and prone him. After paralyzing and proning the patient patient saturation still stayed in the high 70s. Patient driving pressure was around 10-14. Given no improvement in oxygenation even after paralyzing the patient, the next best step would be to transfer the patient to a facility where VV ECMO could be performed. Dr. Lang current touch with [facility] ECMO team. I spoke with Dr. David ruiz on the phone and explained the reason patient needs to VV ECMO as I am not able to oxygenate the patient even with optimal PEEP and prone positioning with paralysis. If I am not able to get oxygenation saturation greater than 85-88% in the next couple of hours there will be high risk of brain injury from hypoxia. Latest ABG pH 7.2 this is a 100% of O2 and PEEP of 18 with tidal volume to 85. I increase the tidal volume to 300. Goal is to keep the pH greater than 7.25, and keep PCO2 between 45-55. Agree with heparin drip as Covid-19 is a hypercoagulable state although I doubt patient has PE as I have bilateral infiltrates on the chest x-ray. D-dimer only 720 01/13/2020 Patient has thrombocytopenia which is new in onset. Would monitor for any drop in platelets. Patient CRP was only 1.26. I do not think he is a candidate for Tocilizumab. Continue with remdesivir and dexamethasone. Patient is on Nimbex as well. The possibility of ICU myopathy is high when concurrent use of steroids and paralytics. But in this patient benefits outweigh the risk. Given the procalcitonin is negative will discontinue Rocephin Prognosis is guarded. I have personally spent 33 additional minutes of critical care time in the direct management of this patient. This is a life/limb threatening event. This includes time spent evaluating patient, direct bedside care, chart review, placing orders, interpretation of diagnostic studies, discussion with consultants, patient, and family members, as well as other required patient management activities. This time is exclusive of all separately billable procedures, and teaching time and separate from and in addition to any other critical care service time. Please note the above document was generated using voice recognition software. It may contain grammatical, syntax or spelling errors. Coding Level of Care Code Critical Care ea addt'l 30 min Time Spent (min) 33
[2020-01-13 18:43] LABS: Basophils # (auto) 0.01 K/uL (0-0.2); Basophils % (auto) 0.1 %; Hematocrit (blood only) 39.5 % (42-52); Hemoglobin 13.2 g/dL (14.0-18.0); Immature Granulocytes # (auto) 0.39 K/uL (0.00-0.02); Immature Granulocytes % (auto) 4.1 %; Lymphocytes # (auto) 1.09 K/uL (1.2-3.4); Lymphocytes % (auto) 11.4 %; Mean Corpuscular Hemoglobin 33.7 pg (25-34); Mean Corpuscular Volume 100.8 fL (80-100); Mean Platelet Volume 10.3 fL (7.4-10.4); Monocytes # (auto) 0.38 K/uL (0.11-0.59); Neutrophils # (auto) 7.66 K/uL (1.4-6.5); Neutrophils % (auto) 80.4 %; Platelet Count 197 K/uL (130-400); RDW Coefficient of Variation 14.8 % (11.5-14.5); RDW Standard Deviation 55.2 fL (36.4-46.3); Red Blood Count 3.92 M/uL (4.7-6.1); White Blood Count 9.53 K/uL (4.8-10.8)
[2020-01-13 18:51] LABS: Partial Thromboplastin Time 28.5 Seconds (21.0-31.0); Prothrombin Time 10.7 Seconds (9.0-12.0)
[2020-01-13 19:05] LABS: Mean Corpuscular Hgb Conc 33.4 g/dL (32-36)
--- NOTE | 2020-01-13 19:19 | Hospitalist Progress Note ---
Date of Service January 13, 2020 Assessment & Plan (1) Pneumonia due to COVID-19 virus: Pneumonia due to COVID-19 virus with hypoxia- Decadron 6 mg IV daily x10 days Convalescent plasma x1, administered Remdesivir IV per protocol Ventolin HFA 2 puffs 4 times daily, every 2 hours as needed Ceftriaxone 1 g IV daily complete 1 week course Azithromycin 500 mg IV daily pleat 5-day course Patient significantly decompensated throughout the day on 01/13/2020. I did personally in conversations with [facility], Dr. Morales, about the possibility of ECMO therapy. His hypoxia does make transportation significantly risky for him to succumb to his hypoxic issues while traveling. There was discussion about having an emergent team come to begin ECMO in route. [facility] does not have such a team and her she does not have a team either. After discussing this I did call his family discussed it with his daughter Karoline who stated that after his last significant illness 3 years ago he instructed them never to put him through that again. To this end she felt it would be best not to take the risk to transport him to [facility] understanding that his likelihood of survival is extremely poor without it. He is a conditional code at this point time with no CPR. His daughter was updated on multiple events throughout the day patient is survival is not expected at this time 90 minutes critical care time spent with this patient today discussed with family and on the unit (2) Hypoxia: Patient remains persistently hypoxic despite mechanical ventilation 100% FiO2 concern for hypoxic brain injury is paramount as family was explained this (3) Acute kidney injury superimposed on chronic kidney disease: Ending continues to rise in the face of his profound hypoxemia (4) Thrombocytopenia: Follow with serial laboratories Admission and Anticipated Discharge Date Admission Date: January 09, 2020 Subjective Patient seems not significantly bothered by his hypoxia. He did receive convalescent plasma remdesivir and dexamethasone he rapidly did decompensate overnight and was intubated this am he is now paralyzed and ventilated Review of Systems Review of Systems: Unobtainable due to endotracheal tube Physical Exam Physical Exam: The patient appeared to brooke declining He is in was in moderate to severe respiratory distress Vital signs as documented. Head exam is normocephalic atraumatic no scleral icterus Neck is without JVD, thyromegaly, trachea is midline Lungs remain coarse bilaterally with bilateral rales, tachypneic with poor air movement Cardiac exam, not necessarily tachycardic Abdominal exam reveals normal bowel sounds, soft non tender, no masses Extremities are nonedematous and both pedal pulses are present Results & Data Results & Data ([facility]) Vital Signs (Past 12 Hours) Vital Signs Temp Pulse Pulse Resp BP Pulse Ox Pulse Ox 01/13/20 18:30 81 84 L 01/13/20 18:13 83 122/87 82 L 01/13/20 18:00 81 80 L 01/13/20 17:30 84 78 L 01/13/20 17:13 86 112/87 77 L 01/13/20 17:00 88 78 L 01/13/20 16:30 87 79 L 01/13/20 16:13 88 117/84 75 L 01/13/20 16:00 96.3 F L 87 74 L 01/13/20 15:46 78 01/13/20 15:30 90 72 L 01/13/20 15:13 91 H 118/87 72 L 01/13/20 15:02 91 H 31 H 72 L 01/13/20 15:00 90 75 L 01/13/20 14:42 91 H 118/98 74 L 01/13/20 14:30 89 76 L 01/13/20 14:12 96 H 99/72 L 82 L 01/13/20 14:00 99 H 80 L 01/13/20 13:45 101 H 78 L 01/13/20 13:42 102 H 111/76 78 L 01/13/20 13:30 102 H 78 L 01/13/20 13:28 30 H 01/13/20 13:15 100 H 76 L 01/13/20 13:12 101 H 110/82 77 L 01/13/20 13:00 104 H 24 77 L 01/13/20 12:45 120 H 119/79 78 L 01/13/20 12:42 100 H 114/80 80 L 01/13/20 12:30 102 H 88 L 01/13/20 12:15 102 H 90 01/13/20 12:09 105 H 111/73 90 01/13/20 12:00 105 H 90 01/13/20 11:45 110 H 87 L 01/13/20 11:42 105 H 113/82 87 L 01/13/20 11:30 101 H 88 L 01/13/20 11:25 101 H 89 L 01/13/20 11:15 108 H 89 L 01/13/20 11:12 106 H 115/87 89 L 01/13/20 11:06 20 01/13/20 11:00 100 H 91 01/13/20 10:58 100 H 135/88 90 01/13/20 10:48 98 H 20 87 L 01/13/20 10:45 91 H 138/94 82 L 01/13/20 10:40 101 H 203/129 H 77 L 01/13/20 10:31 101 H 76 L 01/13/20 10:29 104 H 201/136 H 75 L 01/13/20 10:25 109 H 155/112 H 85 L 01/13/20 10:15 105 H 01/13/20 10:00 98 H 01/13/20 09:45 107 H 01/13/20 09:30 106 H 01/13/20 09:15 105 H 01/13/20 09:00 102 H 01/13/20 08:45 103 H 01/13/20 08:30 101 H 01/13/20 08:15 102 H 01/13/20 08:00 104 H 01/13/20 07:45 104 H 01/13/20 07:30 101 H 01/13/20 07:24 106 H 38 H 88 L 01/13/20 07:22 105 H 38 H 88 L 01/13/20 07:15 104 H PG Care Time/CCT Total # of Minutes Spent Total Time Spent with Patient: Total time spent is greater than 50% in coordination of care (as documented) at patient's floor/unit and/or counseling patient: Coding Level of Care Code 33871 Subseq Hosp Care Lvl 3 Diagnoses Pneumonia due to COVID-19 virus U07.1; J12.89 Hypoxia R09.02 Acute kidney injury superimposed on chronic kidney disease N17.9; N18.9 Thrombocytopenia D69.6
[2020-01-13] MEDS: EPOPROSTENOL SODIUM INH PRN (21:39)
[2020-01-14] MEDS: propofoL 1,000 MG/100 ML VIAL IV SCH ×7 (00:09→23:54)
[2020-01-14] MEDS: fentaNYL DRIP 1,250 MCG/250 ML BAG IV SCH ×3 (00:09→21:52)
[2020-01-14] MEDS: SODIUM CHLORIDE 0.9% 10ML FLUSH IV SCH (00:55)
[2020-01-14 00:57] LABS: Partial Thromboplastin Ratio > 5.0
[2020-01-14] MEDS: CISATRACURIUM BESYLATE 40 MG in 0.9 % SODIUM CHLORIDE 80 ML IV SCH ×9 (01:22→23:53)
[2020-01-14 01:27] LABS: Partial Thromboplastin Time > 139.0 Seconds (21.0-31.0)
[2020-01-14] MEDS: EPOPROSTENOL SODIUM INH PRN ×5 (02:16→20:30)
[2020-01-14 03:48] LABS: Partial Thromboplastin Ratio 2.9
[2020-01-14 04:16] LABS: Partial Thromboplastin Time 79.6 Seconds (21.0-31.0)
[2020-01-14 05:01] LABS: iSTAT Arterial Blood Gas HCO3 27 meg/L (19-24); iSTAT Arterial Blood Gas pCO2 65 mmHg (35-46); iSTAT Arterial Blood Gas pH 7.22 (7.35-7.45); iSTAT Arterial Blood Gas pO2 56 mmHg (80-95); iSTAT Carbon Dioxide 29 mmol/L (24-31); iSTAT FiO2 80 %; iSTAT Site Art Line
[2020-01-14 06:53] LABS: Hematocrit (blood only) 37.9 % (42-52); Hemoglobin 12.7 g/dL (14.0-18.0); Mean Corpuscular Hemoglobin 33.8 pg (25-34); Mean Corpuscular Hgb Conc 33.5 g/dL (32-36); Mean Corpuscular Volume 100.8 fL (80-100); Platelet Count 180 K/uL (130-400); RDW Coefficient of Variation 14.9 % (11.5-14.5); RDW Standard Deviation 55.1 fL (36.4-46.3); Red Blood Count 3.76 M/uL (4.7-6.1); White Blood Count 9.58 K/uL (4.8-10.8)
[2020-01-14 07:33] LABS: BUN Creatinine Ratio 26.8 (10-20); Calcium 7.7 mg/dl (8.5-10.1); Creatinine Clr Calc Pharmacy 67.2 ml/min; Magnesium 2.6 mg/dl (1.8-2.4); Phosphorus 5.3 mg/dl (2.5-4.9); Potassium 4.4 mmol/L (3.5-5.1)
--- NOTE | 2020-01-14 09:30 | Critical Care Progress Note ---
Date of Service January 14, 2020 Assessment & Plan (1) Pneumonia due to COVID-19 virus: Chest x-ray 01/13/2020 personally reviewed: Fair inspiratory effort, significant elevation of the right hemidiaphragm, bilateral alveolar opacities appreciated including retrocardiac. Increased cardiac silhouette. Mild blunting of bilateral costophrenic angles. Patient has had elevated right hemidiaphragm for couple of years. Etiology is unknown. -- VDRF Likely secondary to multilobar pneumonia secondary to COVID-19 Continue with ventilatory support Keep RASS -1 Daily sedation holidays and SBT's Chlorhexidine mouthwash -- ARDS Continue with lung protective ventilation High PEEP, low tidal volume to keep Plateau < 30 with permissive hypercapnea if need be. Monitor ABGs Influenza A/B -ve COVID-19 Continue with dexamethasone 6 mg for total of 10 days Patient is status post Remdesivir for total of 5 days. Last dose 01/13/20 s/p 5 days of Azithromycin 01/14/20 LDH 630, CRP 1.21, ESR 41, BNP 60 Procalcitonin 0.06 --OZZY on CKD Monitor BUN/creatinine Avoid nephrotoxic medications Strict ins and outs --Transaminitis Could be from hypoxia --Thrombocytopenia Could be from sepsis Monitor --Elevated right hemidiaphragm Chronic --Morbid obesity --Prophylaxis VTE: Heparin drip GI: Protonix --No CPR Because of persistent hypoxia I have personally talked with ECMO team at [facility] who are willing to accept the patient. With family decided not to transfer the patient as the patient did not want any aggressive care from his previous bad experience. Patient definitely did not want trach and the patient's daughter wants to respect that. Lines: Left IJ 01/12, left radial 01/12, positive Martinez Diet: N.p.o. Plan: In/out: Positive 664, urine output 1125 AB.22/65/56 on 80% with PEEP of 18, plateau today was 27.5 Patient has been prone for almost 16 hours. He was made supine again in my presence. Continue with epoprostenol inhaled. His oxygenation did go up to 97%. We will start weaning FiO2. Once I reach FiO2 below 70% we will start weaning epopro stenol off. Patient has completed the course of remdesivir. I do not feel there will be any more benefit of giving him remdesivir. Continue with dexamethasone for total of 10 days. Today will be the last dose of azithromycin. We will continue with proning and paralysis for another 24 hours and then stop the paralysis. Overall patient's prognosis is guarded given he was hypoxic for significant a mount of time in the mid-high 70s. Patient's daughter Jessenia was called at [phone]. She was updated regarding the currrent status of her father. I have personally spent 41 minutes of critical care time in the direct management of this patient. This is a life/limb threatening event. This includes time spent evaluating patient, direct bedside care, chart review, placing orders, interpretation of diagnostic studies, discussion with consultants, patient, and family members, as well as other required patient management activities. This time is exclusive of all separately billable procedures, and teaching time and separate from and in addition to any other critical care service time. Please note the above document was generated using voice recognition software. It may contain grammatical, syntax or spelling errors. (2) Thrombocytopenia: (3) Acute kidney injury superimposed on chronic kidney disease: (4) Hypoxia: Admission and Anticipated Discharge Date Admission Date: January 09, 2020 Subjective Patient seen and examined at bedside. No acute distress, no adverse events overnight. Patient is currently prone. He is on fentanyl 100, propofol 35. On Nimbex. Saturation was 97%. Yesterday epoprostenol was started tested patient was hypoxic even on 100% FiO2 and being prone. Patient is making good amount of urine. Has been afebrile. Physical Exam Physical Exam: Constitutional: No acute distress HEENT: PERRLA, positive ETT Respiratory system: Decreased air entry bilaterally more decreased on the right lower side, no wheeze, no rhonchi, positive crackles CVS: S1-S2 positive, no murmurs or gallops Abdomen: Soft, nontender, nondistended, positive bowel sounds x4, obese Extremities: +2 pulses bilaterally radialis/ dorsalis pedis, no cyanosis, no edema Neuro: Paralyzed Psych: Unable to assess G/U: Positive Martinez Skin: no rashes, warm and dry Lymphatic: no cervical or axillary lymphadenopathy Results & Data Results & Data ([facility]) Vital Signs (Past 12 Hours) Vital Signs Temp Pulse Pulse Resp BP BP Pulse Ox 01/14/20 09:21 86 30 H 135/72 91 01/14/20 08:32 64 30 H 98/60 L 89 L 01/14/20 07:46 89 94/58 L 01/14/20 07:24 89 30 H 143/76 H 93 01/14/20 07:23 36.9 C 87 30 H 115/73 90 01/14/20 07:20 89 30 H 93 01/14/20 06:47 87 30 H 145/76 H 94 01/14/20 06:13 36.7 C 83 30 H 113/69 93 01/14/20 06:00 36.7 C 82 91 01/14/20 05:38 36.7 C 81 30 H 105/66 92 01/14/20 05:36 80 30 H 130/71 91 01/14/20 05:20 36.6 C 82 104/68 89 L 01/14/20 05:13 36.6 C 80 94/66 L 90 01/14/20 05:00 36.5 C 75 91 01/14/20 04:45 79 30 H 92 01/14/20 04:43 78 30 H 139/74 92 01/14/20 04:30 36.4 C L 80 88 L 01/14/20 04:13 36.4 C L 74 103/68 88 L 01/14/20 04:09 36.3 C L 76 119/79 88 L 01/14/20 04:00 36.4 C L 78 88 L 01/14/20 03:40 81 30 H 144/75 H 95 01/14/20 03:30 36.3 C L 80 95 01/14/20 03:13 36.3 C L 81 119/79 94 01/14/20 03:00 36.3 C L 79 94 01/14/20 02:38 81 30 H 139/73 93 01/14/20 02:30 36.2 C L 79 93 01/14/20 02:13 36.2 C L 78 117/79 93 01/14/20 02:00 36.2 C L 78 94 01/14/20 01:46 79 30 H 95 01/14/20 01:43 78 30 H 133/74 95 01/14/20 01:30 36.1 C L 78 96 01/14/20 01:13 36.1 C L 78 115/79 95 01/14/20 01:00 36.0 C L 77 96 01/14/20 00:37 76 30 H 136/75 97 01/14/20 00:30 35.9 C L 78 97 01/14/20 00:13 35.9 C L 77 123/86 96 01/14/20 00:00 35.8 C L 75 95 01/13/20 23:58 76 96 01/13/20 23:42 81 30 H 149/77 H 95 01/13/20 23:30 35.7 C L 80 95 01/13/20 23:13 35.7 C L 78 112/79 95 01/13/20 23:00 35.7 C L 78 94 01/13/20 22:42 79 30 H 95 01/13/20 22:41 80 30 H 139/75 95 01/13/20 22:30 35.6 C L 78 94 01/13/20 22:13 35.6 C L 79 110/77 93 01/13/20 22:00 35.5 C L 79 93 01/13/20 21:44 81 30 H 135/74 91 01/14/20 06:22 01/14/20 06:22 Coding Level of Care Code Critical Care 1st 30-74 mins Diagnoses Pneumonia due to COVID-19 virus U07.1; J12.89 Thrombocytopenia D69.6 Acute kidney injury superimposed on chronic kidney disease N17.9; N18.9 Hypoxia R09.02 Time Spent (min) 41
[2020-01-14] MEDS: ZINC SULFATE 220 MG CAPSULE PO SCH (09:32)
[2020-01-14] MEDS: DEXAMETHASONE SOD PHOSPHATE 6 MG in SYRINGE 0 ML IV SCH (09:32)
[2020-01-14] MEDS: AZITHROMYCIN 500 MG in DEXTROSE 5% 250 ML IV SCH (09:44)
[2020-01-14] MEDS: PANTOprazole 40 MG in SYRINGE 0 ML IV SCH (11:29)
[2020-01-14] MEDS: HEPARIN SODIUM/DEXTROSE 25,000 UNITS/500 ML BAG IV SCH (11:49)
[2020-01-14] MEDS ORDERED: Nursing to Pharmacy Communication SCH ×2 (17:15→20:45)
--- NOTE | 2020-01-14 19:21 | Hospitalist Progress Note ---
Date of Service January 14, 2020 Assessment & Plan (1) Pneumonia due to COVID-19 virus: Pneumonia due to COVID-19 virus with hypoxia- Decadron 6 mg IV daily x10 days Convalescent plasma x1, administered Remdesivir IV per protocol Ventolin HFA 2 puffs 4 times daily, every 2 hours as needed Ceftriaxone 1 g IV daily complete 1 week course Azithromycin 500 mg IV daily pleat 5-day course Patient significantly decompensated throughout the day on 01/13/2020. I did personally in conversations with [facility], Dr. Morales, about the possibility of ECMO therapy. His hypoxia does make transportation significantly risky for him to succumb to his hypoxic issues while traveling. There was discussion about having an emergent team come to begin ECMO in route. [facility] does not have such a team and her she does not have a team either. After discussing this I did call his family discussed it with his daughter Karoline who stated that after his last significant illness 3 years ago he instructed them never to put him through that again. To this end she felt it would be best not to take the risk to transport him to [facility] understanding that his likelihood of survival is extremely poor without it. He is a conditional code at this point time with no CPR. His daughter was updated on multiple events throughout the day patient is survival is not expected at this time 01/13 I did update her family and we keep guarded outlook (2) Hypoxia: Patient remains persistently hypoxic despite mechanical ventilation 100% FiO2 concern for hypoxic brain injury is paramount as family was explained this (3) Acute kidney injury superimposed on chronic kidney disease: improved good urine outpt drips are adding up to about 100ml an hour (4) Thrombocytopenia: Follow with serial laboratories Admission and Anticipated Discharge Date Admission Date: January 09, 2020 Subjective intubated this am he is now paralyzed and ventilated Review of Systems Review of Systems: Unobtainable due to endotracheal tube and Unobtainable due to reduced consciousness Physical Exam Physical Exam: intubated and sedated coarse breath sounds. Results & Data Results & Data ([facility]) Vital Signs (Past 12 Hours) Vital Signs Temp Pulse Pulse Resp BP BP Pulse Ox 01/14/20 19:12 77 30 H 132/75 88 L 01/14/20 18:25 78 30 H 131/72 87 L 01/14/20 17:38 30 H 01/14/20 17:28 80 30 H 139/75 90 01/14/20 16:28 77 30 H 134/75 89 L 01/14/20 16:00 78 131/72 01/14/20 15:32 76 30 H 130/73 91 01/14/20 14:44 30 H 01/14/20 14:24 77 30 H 130/74 91 01/14/20 13:24 73 30 H 127/72 91 01/14/20 13:20 30 H 01/14/20 12:30 86 30 H 128/72 89 L 01/14/20 12:00 98.2 F 77 89 L 01/14/20 11:45 98.2 F 80 88 L 01/14/20 11:30 98.2 F 80 89 L 01/14/20 11:25 77 01/14/20 11:18 82 30 H 134/73 92 01/14/20 11:15 98.2 F 81 90 01/14/20 11:13 98.2 F 82 108/70 90 01/14/20 11:00 98.2 F 84 01/14/20 10:45 97 01/14/20 10:30 98.2 F 93 H 97 01/14/20 10:15 98.1 F 94 H 97 01/14/20 10:13 98.1 F 95 H 116/74 97 01/14/20 10:00 98.1 F 94 H 30 H 137/75 96 01/14/20 09:45 98.1 F 92 H 95 01/14/20 09:30 98.1 F 88 94 01/14/20 09:21 86 30 H 135/72 91 01/14/20 09:15 98.1 F 84 91 01/14/20 09:13 98.1 F 85 121/76 92 01/14/20 09:00 98.1 F 83 92 01/14/20 08:45 98.2 F 69 90 01/14/20 08:32 64 30 H 98/60 L 89 L 01/14/20 08:30 98.2 F 65 88 L 01/14/20 08:15 98.2 F 67 88 L 01/14/20 08:13 98.2 F 66 94/56 L 87 L 01/14/20 08:00 98.4 F 67 88 L 01/14/20 07:46 89 94/58 L 01/14/20 07:45 98.4 F 66 86 L 01/14/20 07:30 98.4 F 79 89 L 01/14/20 07:24 89 30 H 143/76 H 93 01/14/20 07:23 98.4 F 87 30 H 115/73 90 01/14/20 07:20 98.4 F 86 30 H 115/73 90 Pulse Ox 01/14/20 19:12 01/14/20 18:25 01/14/20 17:38 01/14/20 17:28 01/14/20 16:28 01/14/20 16:00 01/14/20 15:32 01/14/20 14:44 01/14/20 14:24 01/14/20 13:24 01/14/20 13:20 01/14/20 12:30 01/14/20 12:00 01/14/20 11:45 01/14/20 11:30 01/14/20 11:25 89 L 01/14/20 11:18 01/14/20 11:15 01/14/20 11:13 01/14/20 11:00 01/14/20 10:45 01/14/20 10:30 01/14/20 10:15 01/14/20 10:13 01/14/20 10:00 01/14/20 09:45 01/14/20 09:30 01/14/20 09:21 01/14/20 09:15 01/14/20 09:13 01/14/20 09:00 01/14/20 08:45 01/14/20 08:32 01/14/20 08:30 01/14/20 08:15 01/14/20 08:13 01/14/20 08:00 01/14/20 07:46 01/14/20 07:45 01/14/20 07:30 01/14/20 07:24 01/14/20 07:23 01/14/20 07:20 PG Care Time/CCT Total # of Minutes Spent Total Time Spent with Patient: Total time spent is greater than 50% in coordination of care (as documented) at patient's floor/unit and/or counseling patient: Coding Level of Care Code 94324 Subseq Hosp Care Lvl 3 Diagnoses Pneumonia due to COVID-19 virus U07.1; J12.89 Hypoxia R09.02 Acute kidney injury superimposed on chronic kidney disease N17.9; N18.9 Thrombocytopenia D69.6
--- NOTE | 2020-01-14 19:48 | Communication Note ---
Date of Service: January 14, 2020 Critical CARE addendum: Patient was saturating 89-90% PEEP of 18 FiO2 70% being supine patient's peak was 33 and plateau being 28 patient is still paralyzed. We will prone the patient again likely 16 hours. I was present bedside and the patient was prone. Saturation improved to 92% immediately after proning. Went down on the FiO2 to 60%. If the patient saturation stays above 88% the next that would be to go down on the Flolan as well as PEEP. Patient's left lung is better than the right. Putting the patient with left lung down will help with oxygenation. Continue with lung protective ventilation. Please note the above document was generated using voice recognition software. It may contain grammatical, syntax or spelling errors.Any formal questions or concerns about the content, text or information contained within the body of this dictation should be directly addressed to the provider for clarification. Coding Level of Care Code Critical Care betty nolent'l 30 min Time Spent (min) 22
[2020-01-14 23:18] LABS: iSTAT Art Bld Gas pCO2 Correct 52 mmHg (35-46); iSTAT Art Bld Gas pH Corrected 7.312 (7.35-7.45); iSTAT Arterial Blood Gas HCO3 26 meg/L (19-24); iSTAT Arterial Blood Gas pCO2 51 mmHg (35-46); iSTAT Arterial Blood Gas pH 7.32 (7.35-7.45); iSTAT Arterial Blood Gas pO2 53 mmHg (80-95); iSTAT Arterial Blood Gas pO2 C 54; iSTAT Carbon Dioxide 28 mmol/L (24-31); iSTAT FiO2 60 %; iSTAT Hematocrit 36 % (42-52); iSTAT Hemoglobin 12.2 g/dl (14.0-18.0); iSTAT Potassium 4.4 mmol/L (3.3-5.0); iSTAT Site Art Line; iSTAT Sodium 140 mmol/L (135-144)
[2020-01-15] MEDS: CISATRACURIUM BESYLATE 40 MG in 0.9 % SODIUM CHLORIDE 80 ML IV SCH ×11 (03:09→21:36)
[2020-01-15] MEDS: PROPOFOL BOLUS FROM BAG IV PRN ×2 (04:47→20:56)
[2020-01-15 04:49] LABS: Hematocrit (blood only) 37.2 % (42-52); Hemoglobin 12.2 g/dL (14.0-18.0); Mean Corpuscular Hemoglobin 32.9 pg (25-34); Mean Corpuscular Hgb Conc 32.8 g/dL (32-36); Mean Corpuscular Volume 100.3 fL (80-100); Platelet Count 189 K/uL (130-400); RDW Coefficient of Variation 14.6 % (11.5-14.5); RDW Standard Deviation 53.5 fL (36.4-46.3); Red Blood Count 3.71 M/uL (4.7-6.1); White Blood Count 9.29 K/uL (4.8-10.8)
[2020-01-15 05:09] LABS: BUN Creatinine Ratio 22.8 (10-20); Calcium 7.5 mg/dl (8.5-10.1); Creatinine Clr Calc Pharmacy 65.5 ml/min; Est GFR (African American) 56.2; Est GFR (Non-African American) 48.5; Magnesium 2.6 mg/dl (1.8-2.4); Potassium 4.3 mmol/L (3.5-5.1)
[2020-01-15 05:10] LABS: Partial Thromboplastin Ratio 1.9
[2020-01-15] MEDS: propofoL 1,000 MG/100 ML VIAL IV SCH ×8 (05:15→21:05)
[2020-01-15 05:19] LABS: Albumin Globulin Ratio 0.7 (0.9-2); Bilirubin,Total 0.6 mg/dl (0.2-1); Globulin 4.4 gm/dl (2.5-4.0); Phosphorus 3.7 mg/dl (2.5-4.9); Total Protein 7.4 gm/dl (6.4-8.2)
[2020-01-15 05:20] LABS: Partial Thromboplastin Time 53.2 Seconds (21.0-31.0)
[2020-01-15 05:34] LABS: iSTAT Art Bld Gas pCO2 Correct 50 mmHg (35-46); iSTAT Art Bld Gas pH Corrected 7.309 (7.35-7.45); iSTAT Arterial Blood Gas HCO3 25 meg/L (19-24); iSTAT Arterial Blood Gas pCO2 50 mmHg (35-46); iSTAT Arterial Blood Gas pH 7.31 (7.35-7.45); iSTAT Arterial Blood Gas pO2 55 mmHg (80-95); iSTAT Arterial Blood Gas pO2 C 56; iSTAT Carbon Dioxide 27 mmol/L (24-31); iSTAT FiO2 60 %; iSTAT Hematocrit 53 % (42-52); iSTAT Potassium 4.1 mmol/L (3.3-5.0); iSTAT Site Art Line; iSTAT Sodium 139 mmol/L (135-144)
[2020-01-15 05:45] LABS: Basophils # (auto) 0.03 K/uL (0-0.2); Basophils % (auto) 0.3 %; Immature Granulocytes # (auto) 0.77 K/uL (0.00-0.02); Immature Granulocytes % (auto) 8.3 %; Lymphocytes % (auto) 6.5 %; Monocytes # (auto) 0.99 K/uL (0.11-0.59); Monocytes % (auto) 10.7 %; Neutrophils % (auto) 74.2 %; RBC Morphology Unremarkable
[2020-01-15] MEDS: EPOPROSTENOL SODIUM INH PRN ×4 (06:51→13:41)
[2020-01-15] MEDS: HEPARIN SODIUM/DEXTROSE 25,000 UNITS/500 ML BAG IV SCH (07:47)
--- NOTE | 2020-01-15 08:08 | Hospitalist Progress Note ---
Date of Service January 15, 2020 Assessment & Plan (1) Pneumonia due to COVID-19 virus: Pneumonia due to COVID-19 virus with hypoxia-pt declined and was intubated 01/12, with maximum lung protective ventilation remains alive on maximal support, saturations are stable in low 90's high 80's, now with almost three liters in > out will given 1 mg dose bumex folllow renal function Decadron 6 mg IV daily x10 days Convalescent plasma x1, administered Remdesivir IV per protocol remains on eopoprostenol tapering off Previoiusly the Patient significantly decompensated throughout the day on 01/13/2020. I did personally in conversations with [facility], Dr. Morales, about the possibility of ECMO therapy. His hypoxia does make transportation significantly risky for him to succumb to his hypoxic issues while traveling. There was discussion about having an emergent team come to begin ECMO in route. [facility] does not have such a team and [facility] does not have a team either. After discussing this I did call his family discussed it with his daughter Karoline who stated that after his last significant illness 3 years ago he instructed them never to put him through that again. To this end she felt it would be best not to take the risk to transport him to [facility] understanding that his likelihood of survival is extremely poor without it. He is a conditional code at this point time with no CPR. His daughter was updated on multiple events throughout the stay (2) Hypoxia: Patient remains persistently hypoxic despite mechanical ventilation now down to 60% FiO2 concern for hypoxic brain injury is paramount as family was explained this continues to have pulmonary protective ventilation managed by Dr Young (3) Acute kidney injury superimposed on chronic kidney disease: improved give one dose of bumex 01/14 (4) Thrombocytopenia: Follow with serial laboratories Admission and Anticipated Discharge Date Admission Date: January 09, 2020 Subjective intubated this am he is now paralyzed and ventilated Physical Exam Physical Exam: intubated and sedated coarse breath sounds. pt is in prone positon for my exam has slight peripheral edema Results & Data Results & Data ([facility]) Vital Signs (Past 12 Hours) Vital Signs Temp Pulse Resp BP Pulse Ox 01/15/20 07:02 90 30 H 92 01/15/20 06:59 91 H 30 H 126/73 92 01/15/20 05:54 89 30 H 127/74 92 01/15/20 05:30 99.0 F 91 H 91 01/15/20 05:25 99.0 F 91 H 91 01/15/20 05:20 99.0 F 90 91 01/15/20 05:15 99.0 F 91 H 88 L 01/15/20 05:10 99.0 F 90 87 L 01/15/20 05:06 99.0 F 92 H 114/75 88 L 01/15/20 05:05 99.0 F 93 H 88 L 01/15/20 05:02 85 30 H 88 L 01/15/20 05:00 99.0 F 96 H 88 L 01/15/20 04:55 99.0 F 96 H 30 H 145/76 H 88 L 01/15/20 04:52 99.0 F 106 H 150/96 H 89 L 01/15/20 04:50 99.0 F 99 H 89 L 01/15/20 04:45 99.0 F 94 H 89 L 01/15/20 04:41 99.0 F 101 H 90 01/15/20 04:39 99.0 F 108 H 145/95 H 89 L 01/15/20 04:35 99.0 F 99 H 88 L 01/15/20 04:30 99.1 F 104 H 90 01/15/20 04:25 99.1 F 97 H 90 01/15/20 04:20 99.1 F 90 89 L 01/15/20 04:15 99.1 F 92 H 89 L 01/15/20 04:10 99.1 F 91 H 89 L 01/15/20 04:06 99.1 F 93 H 128/77 89 L 01/15/20 04:05 99.1 F 92 H 89 L 01/15/20 04:00 99.1 F 90 30 H 92 01/15/20 03:57 91 H 30 H 145/78 H 93 01/15/20 03:30 99.1 F 87 30 H 91 01/15/20 03:07 87 30 H 135/74 91 01/15/20 03:06 99.1 F 86 113/71 91 01/15/20 03:00 99.1 F 86 30 H 90 01/15/20 02:30 99.3 F 84 90 01/15/20 02:06 99.3 F 83 116/72 88 L 01/15/20 02:00 99.3 F 85 30 H 131/74 88 L 01/15/20 01:54 85 30 H 89 L 01/15/20 01:30 99.3 F 90 91 01/15/20 01:06 99.3 F 89 125/79 90 01/15/20 01:02 88 30 H 137/78 90 01/15/20 01:00 99.3 F 88 30 H 90 01/15/20 00:30 99.3 F 89 30 H 89 L 01/15/20 00:07 87 30 H 132/74 87 L 01/15/20 00:06 99.3 F 89 120/75 87 L 01/15/20 00:00 99.3 F 89 87 L 01/14/20 23:51 99.3 F 86 115/71 87 L 01/14/20 23:36 99.3 F 83 117/77 87 L 01/14/20 23:30 99.3 F 83 87 L 01/14/20 23:28 85 20 23:21 99.3 F 86 118/78 87 L 01/14/20 23:06 99.3 F 83 114/75 86 L 01/14/20 23:02 84 30 H 87 L 01/14/20 23:00 99.3 F 87 30 H 135/75 87 L 20 22:51 99.3 F 88 112/77 87 L 20 22:36 99.3 F 85 118/78 86 L 20 22:30 99.3 F 86 86 L 20 22:21 99.3 F 85 117/79 86 L 20 22:06 99.3 F 85 116/77 87 L 20 22:00 99.3 F 84 30 H 139/78 86 L 20/20 21:51 99.3 F 85 118/78 86 L 20 21:36 99.3 F 85 117/78 88 L 20 21:30 99.3 F 84 87 L 20/20 21:21 99.3 F 83 115/77 87 L 20/20 21:15 99.3 F 83 87 L 11/20/20 21:07 79 30 H 140/77 87 L 01/14/20 21:06 99.3 F 79 114/78 87 L 01/14/20 21:00 99.3 F 81 87 L 01/14/20 20:51 99.3 F 80 116/72 88 L 01/14/20 20:45 99.3 F 73 91 01/14/20 20:36 99.3 F 77 114/73 88 L 01/14/20 20:30 99.3 F 76 30 H 145/80 H 88 L 01/14/20 20:21 99.3 F 79 113/77 88 L 01/14/20 20:15 99.3 F 79 87 L 01/14/20 20:06 99.3 F 78 118/76 88 L PG Care Time/CCT Total # of Minutes Spent Total Time Spent with Patient: Total time spent is greater than 50% in coordination of care (as documented) at patient's floor/unit and/or counseling patient: Coding Level of Care Code 62644 Subseq Hosp Care Lvl 3 Diagnoses Pneumonia due to COVID-19 virus U07.1; J12.89 Hypoxia R09.02 Acute kidney injury superimposed on chronic kidney disease N17.9; N18.9 Thrombocytopenia D69.6
[2020-01-15] MEDS ORDERED: BUMETANIDE 1 MG in SYRINGE 0 ML IV ONE (08:30)
[2020-01-15] MEDS ORDERED: BUMETANIDE 0.5 MG in SYRINGE 0 ML IV ONE (08:30)
--- NOTE | 2020-01-15 09:18 | XRay Report ---
XR chest 1V portable HISTORY: intubation COMPARISON: Chest 01/13/2020. FINDINGS: The endotracheal tube terminates 3.8 cm and the mehrdad. Nasogastric tube terminates below t he diaphragm. The tip is not included on this study. Left jugular central venous catheter terminates at the brachiocephalic/SVC junction. Cervical spinal fusion hardware and an atrial septal closure dev ice are again noted. Progressive bilateral hazy airspace opacities with interstitial thickening. Record Tester moshe elevation right hemidiaphragm. No pneumothorax. There may be trace bilateral pleural effusions. IMPRESSION: 1. Satisfactory support line placement. 2. Progressive bilateral hazy airspace opacities. This may represent worsening pulmonary edema or a p neumonia. ACT 112: Negative or not required by law. Electronically signed by: Angel Granado M.D. 01/15/2020 9:17 AM
[2020-01-15] MEDS: DEXAMETHASONE SOD PHOSPHATE 6 MG in SYRINGE 0 ML IV SCH (09:20)
[2020-01-15] MEDS: fentaNYL DRIP 1,250 MCG/250 ML BAG IV SCH ×2 (09:48→18:49)
[2020-01-15] MEDS: PANTOprazole 40 MG in SYRINGE 0 ML IV SCH (11:50)
[2020-01-15] MEDS: ZINC SULFATE 220 MG CAPSULE PO SCH (12:14)
--- NOTE | 2020-01-15 14:34 | Critical Care Progress Note ---
Date of Service January 15, 2020 Assessment & Plan (1) Pneumonia due to COVID-19 virus: Chest x-ray 01/13/2020 personally reviewed: Fair inspiratory effort, significant elevation of the right hemidiaphragm, bilateral alveolar opacities appreciated including retrocardiac. Increased cardiac silhouette. Mild blunting of bilateral costophrenic angles. Patient has had elevated right hemidiaphragm for couple of years. Etiology is unknown. -- VDRF Likely secondary to multilobar pneumonia secondary to COVID-19 Continue with ventilatory support Keep RASS -1 Daily sedation holidays and SBT's Chlorhexidine mouthwash -- ARDS Continue with lung protective ventilation High PEEP, low tidal volume to keep Plateau < 30 with permissive hypercapnea if need be. Monitor ABGs Influenza A/B -ve COVID-19 Continue with dexamethasone 6 mg for total of 10 days Patient is status post Remdesivir for total of 5 days. Last dose 01/13/20 s/p 5 days of Azithromycin 01/14/20 LDH 630, CRP 1.21, ESR 41, BNP 60 Procalcitonin 0.06 --OZZY on CKD Back to baseline Monitor BUN/creatinine Avoid nephrotoxic medications Strict ins and outs --Transaminitis Could be from hypoxia --S/p thrombocytopenia Could be from sepsis Monitor --Elevated right hemidiaphragm Chronic --Morbid obesity --Prophylaxis VTE: Heparin drip GI: Protonix --No CPR Because of persistent hypoxia I have personally talked with ECMO team at [facility] who are willing to accept the patient. With family decided not to transfer the patient as the patient did not want any aggressive care from his previous bad experience. Patient definitely did not want trach and the patient's daughter wants to respect that. Lines: Left IJ 01/12, left radial 01/12, positive Martinez Diet: N.p.o. Plan: In/out: +897, urine output 1900 AB.31/50/55 on 60% with PEEP of 18, plateau today was 27, tidal volume 360 Patient was made supine in my presence when I went to examine the patient. He has been prone two times for 16-18 hours stretch. Today patient will be 48 hours on paralysis. We will stop the paralysis now. Patient is still on Flolan. We will titrated off as it has been more than 48 hours and it is usually used as a bridge to something. Given that the patient is +4.5 L since coming to the hospital. I will give him a dose of bumetanide 1 mg. Patient's daughter Karoline was called at [phone]. She was updated regarding the current status of her father. I have personally spent 46 minutes of critical care time in the direct management of this patient. This is a life/limb threatening event. This includes time spent evaluating patient, direct bedside care, chart review, placing orders, interpretation of diagnostic studies, discussion with consultants, patient, and family members, as well as other required patient management activities. This time is exclusive of all separately billable procedures, and teaching time and separate from and in addition to any other critical care service time. Please note the above document was generated using voice recognition software. It may contain grammatical, syntax or spelling errors. (2) Thrombocytopenia: (3) Acute kidney injury superimposed on chronic kidney disease: (4) Hypoxia: Admission and Anticipated Discharge Date Admission Date: January 09, 2020 Subjective Patient seen and examined at bedside. No acute distress, no adverse events overnight. Patient is prone currently. On fentanyl and propofol. On Nimbex. Maintaining saturation 92-93% on 70% FiO2. Went down to 60%. Review of Systems Review of Systems: Unobtainable due to endotracheal tube Physical Exam Physical Exam: Constitutional: No acute distress HEENT: PERRLA, positive ETT Respiratory system: Decreased air entry bilaterally more decreased on the right lower side, no wheeze, no rhonchi, positive crackles CVS: S1-S2 positive, no murmurs or gallops Abdomen: Soft, nontender, nondistended, positive bowel sounds x4, obese Extremities: +2 pulses bilaterally radialis/ dorsalis pedis, no cyanosis, no edema Neuro: Paralyzed Psych: Unable to assess G/U: Positive Martinez Skin: no rashes, warm and dry Lymphatic: no cervical or axillary lymphadenopathy Results & Data Results & Data ([facility]) Vital Signs (Past 12 Hours) Vital Signs Temp Pulse Resp BP Pulse Ox Pulse Ox 01/15/20 13:54 80 30 H 91 01/15/20 13:48 80 30 H 135/70 91 01/15/20 13:00 83 30 H 110/64 91 01/15/20 12:45 37.4 C 82 91 01/15/20 12:30 37.4 C 83 91 01/15/20 12:15 37.3 C 82 90 01/15/20 12:07 36.9 C 80 110/69 89 L 01/15/20 12:00 37.2 C 82 115/67 88 L 01/15/20 11:51 81 30 H 115/67 90 01/15/20 11:45 37.3 C 79 89 L 01/15/20 11:30 37.4 C 81 87 L 01/15/20 11:15 37.4 C 85 89 L 01/15/20 11:06 37.4 C 85 115/70 88 L 01/15/20 11:00 37.4 C 86 88 L 91 01/15/20 10:57 84 30 H 111/67 88 L 01/15/20 10:45 37.4 C 85 87 L 01/15/20 10:30 37.4 C 89 89 L 01/15/20 10:17 86 30 H 89 L 01/15/20 10:15 37.3 C 87 90 01/15/20 10:06 37.3 C 86 117/74 89 L 01/15/20 10:00 37.3 C 86 91 01/15/20 09:56 85 30 H 119/70 92 01/15/20 09:45 37.3 C 84 91 01/15/20 09:30 37.3 C 87 92 01/15/20 09:15 37.3 C 87 91 01/15/20 09:06 37.3 C 90 116/71 92 01/15/20 09:00 37.3 C 97 H 92 01/15/20 08:55 94 H 30 H 139/73 92 01/15/20 08:45 37.3 C 92 H 92 01/15/20 08:30 37.3 C 91 H 91 01/15/20 08:15 37.3 C 90 92 01/15/20 08:06 37.3 C 92 H 113/68 91 01/15/20 08:00 37.3 C 91 H 30 H 134/72 93 01/15/20 07:45 37.3 C 93 H 93 01/15/20 07:30 37.3 C 88 92 01/15/20 07:15 37.3 C 88 92 01/15/20 07:06 37.3 C 89 117/74 92 01/15/20 07:02 90 30 H 92 01/15/20 07:00 37.3 C 91 H 92 01/15/20 06:59 91 H 30 H 126/73 92 01/15/20 06:45 37.3 C 92 H 92 01/15/20 06:30 37.3 C 91 H 92 01/15/20 06:15 37.3 C 92 H 91 01/15/20 06:06 37.3 C 91 H 112/73 91 01/15/20 06:00 37.3 C 92 H 90 01/15/20 05:54 89 30 H 127/74 92 01/15/20 05:45 37.3 C 91 H 92 01/15/20 05:30 37.2 C 91 H 91 01/15/20 05:25 37.2 C 91 H 91 01/15/20 05:20 37.2 C 90 91 01/15/20 05:15 37.2 C 91 H 88 L 01/15/20 05:10 37.2 C 90 87 L 01/15/20 05:06 37.2 C 92 H 114/75 88 L 01/15/20 05:05 37.2 C 93 H 88 L 01/15/20 05:02 85 30 H 88 L 01/15/20 05:00 37.2 C 96 H 88 L 01/15/20 04:55 37.2 C 96 H 30 H 145/76 H 88 L 01/15/20 04:52 37.2 C 106 H 150/96 H 89 L 01/15/20 04:50 37.2 C 99 H 89 L 01/15/20 04:45 37.2 C 94 H 89 L 01/15/20 04:41 37.2 C 101 H 90 01/15/20 04:39 37.2 C 108 H 145/95 H 89 L 01/15/20 04:35 37.2 C 99 H 88 L 01/15/20 04:30 37.3 C 104 H 90 01/15/20 04:25 37.3 C 97 H 90 01/15/20 04:20 37.3 C 90 89 L 01/15/20 04:15 37.3 C 92 H 89 L 01/15/20 04:10 37.3 C 91 H 89 L 01/15/20 04:06 37.3 C 93 H 128/77 89 L 01/15/20 04:05 37.3 C 92 H 89 L 01/15/20 04:00 37.3 C 90 30 H 92 01/15/20 03:57 91 H 30 H 145/78 H 93 01/15/20 03:30 37.3 C 87 30 H 91 01/15/20 03:07 87 30 H 135/74 91 01/15/20 03:06 37.3 C 86 113/71 91 01/15/20 03:00 37.3 C 86 30 H 90 01/15/20 04:27 01/15/20 04:27 Coding Level of Care Code Critical Care 1st 30-74 mins Diagnoses Pneumonia due to COVID-19 virus U07.1; J12.89 Thrombocytopenia D69.6 Acute kidney injury superimposed on chronic kidney disease N17.9; N18.9 Hypoxia R09.02 Time Spent (min) 46
[2020-01-15] MEDS ORDERED: STAT IV Infusion **Titration per Protocol STA (15:25)
[2020-01-15] MEDS: fentaNYL citrate 100 MCG/2 ML VIAL IV PRN (20:57)
[2020-01-16] MEDS: CISATRACURIUM BESYLATE 40 MG in 0.9 % SODIUM CHLORIDE 80 ML IV SCH ×13 (00:06→21:37)
[2020-01-16] MEDS: propofoL 1,000 MG/100 ML VIAL IV SCH ×8 (00:14→22:31)
[2020-01-16] MEDS: fentaNYL DRIP 1,250 MCG/250 ML BAG IV SCH ×6 (00:14→19:26)
[2020-01-16] MEDS: HEPARIN SODIUM/DEXTROSE 25,000 UNITS/500 ML BAG IV SCH ×2 (03:06→21:41)
[2020-01-16] MEDS: PROPOFOL BOLUS FROM BAG IV PRN (03:40)
[2020-01-16 05:15] LABS: iSTAT Art Bld Gas pCO2 Correct 49 mmHg (35-46); iSTAT Art Bld Gas pH Corrected 7.322 (7.35-7.45); iSTAT Arterial Blood Gas HCO3 26 meg/L (19-24); iSTAT Arterial Blood Gas pCO2 49 mmHg (35-46); iSTAT Arterial Blood Gas pH 7.33 (7.35-7.45); iSTAT Arterial Blood Gas pO2 49 mmHg (80-95); iSTAT Arterial Blood Gas pO2 C 50; iSTAT Carbon Dioxide 27 mmol/L (24-31); iSTAT FiO2 60 %; iSTAT Hematocrit 33 % (42-52); iSTAT Hemoglobin 11.2 g/dl (14.0-18.0); iSTAT Potassium 4.2 mmol/L (3.3-5.0); iSTAT Site Art Line; iSTAT Sodium 139 mmol/L (135-144)
[2020-01-16 07:15] LABS: Partial Thromboplastin Ratio 1.8
[2020-01-16 07:16] LABS: Hematocrit (blood only) 34.4 % (42-52); Hemoglobin 11.3 g/dL (14.0-18.0); Mean Corpuscular Hemoglobin 32.8 pg (25-34); Mean Corpuscular Hgb Conc 32.8 g/dL (32-36); Mean Platelet Volume 10.2 fL (7.4-10.4); Nucleated RBC # (auto) 0.04 K/uL (0-0); Nucleated RBC % (auto) 0.6 %; Platelet Count 203 K/uL (130-400); RDW Coefficient of Variation 14.8 % (11.5-14.5); RDW Standard Deviation 54.6 fL (36.4-46.3); Red Blood Count 3.44 M/uL (4.7-6.1); White Blood Count 7.81 K/uL (4.8-10.8)
[2020-01-16 07:19] LABS: Partial Thromboplastin Time 49.3 Seconds (21.0-31.0)
[2020-01-16 07:38] LABS: Albumin Globulin Ratio 0.7 (0.9-2); Albumin Level 2.8 gm/dl (3.4-5.0); BUN Creatinine Ratio 21.5 (10-20); Bilirubin,Total 0.5 mg/dl (0.2-1); Calcium 7.5 mg/dl (8.5-10.1); Creatinine Clr Calc Pharmacy 66.6 ml/min; Est GFR (African American) 56.7; Est GFR (Non-African American) 48.9; Globulin 4.2 gm/dl (2.5-4.0); Magnesium 2.6 mg/dl (1.8-2.4); Phosphorus 3.4 mg/dl (2.5-4.9); Potassium 4.1 mmol/L (3.5-5.1)
[2020-01-16 08:22] LABS: ALC (manual) 0.63 K/uL (1.2-3.4); ANC (manual) 6.26 K/uL (1.4-6.5); Basophils # (manual) 0.07 K/uL (0-0.2); Basophils % (manual) 0.9 %; Lymphocytes # (manual) 0.63 K/uL (1.2-3.4); Lymphocytes % (manual) 8.1 %; Metamyelocytes # (manual) 0.35 K/uL (0-0); Metamyelocytes % (manual) 4.5 %; Monocytes # (manual) 0.14 K/uL (0.11-0.59); Monocytes % (manual) 1.8 %; Myelocytes # (manual) 0.35 K/uL (0-0); Myelocytes % (manual) 4.5 %; Neutrophils # (manual) 6.26 K/uL (1.4-6.5); Neutrophils % (manual) 80.2 %; RBC Morphology Unremarkable
[2020-01-16] MEDS: DEXAMETHASONE SOD PHOSPHATE 6 MG in SYRINGE 0 ML IV SCH (08:35)
[2020-01-16] MEDS: ZINC SULFATE 220 MG CAPSULE PO SCH (08:38)
[2020-01-16] MEDS ORDERED: BUMETANIDE 1 MG in SYRINGE 0 ML IV ONE (09:00)
--- NOTE | 2020-01-16 09:09 | XRay Report ---
XR chest 1V portable HISTORY: Respiratory failure. Pneumonia. COMPARISON: Chest 01/15/2020. FINDINGS: There are low lung volumes. Endotracheal tube terminates 2.3 cm from the mehrdad. Nasogastri c tube terminates below the diaphragm. Left jugular central venous catheter terminates at the brachio cephalic/SVC junction. Cervical spinal fusion hardware is again noted. No pneumothorax. Small left pl eural effusion. Mild diffuse interstitial thickening has slightly improved. Bibasilar airspace opacit ies persist. IMPRESSION: 1. Satisfactory support line placement. 2. Overall, improved aeration within the lungs. 3. Small left pleural effusion. ACT 112: Negative or not required by law. Electronically signed by: Angel Granado M.D. 01/16/2020 9:08 AM
[2020-01-16] MEDS ORDERED: STAT IV Infusion **Titration per Protocol STA (10:23)
--- NOTE | 2020-01-16 10:30 | Critical Care Progress Note ---
Date of Service January 16, 2020 Assessment & Plan (1) Pneumonia due to COVID-19 virus: Chest x-ray 01/13/2020 personally reviewed: Fair inspiratory effort, significant elevation of the right hemidiaphragm, bilateral alveolar opacities appreciated including retrocardiac. Increased cardiac silhouette. Mild blunting of bilateral costophrenic angles. Patient has had elevated right hemidiaphragm for couple of years. Etiology is unknown. -- VDRF Likely secondary to multilobar pneumonia secondary to COVID-19 Continue with ventilatory support Keep RASS -1 Daily sedation holidays and SBT's Chlorhexidine mouthwash -- ARDS Continue with lung protective ventilation High PEEP, low tidal volume to keep Plateau < 30 with permissive hypercapnea if need be. Monitor ABGs Influenza A/B -ve Patient has been prone 2 times for duration of 18 hours each. Last proning 01/15/20 COVID-19 Continue with dexamethasone 6 mg for total of 10 days Patient is status post Remdesivir for total of 5 days. Last dose 01/13/20 s/p 5 days of Azithromycin 01/14/20 LDH 630, CRP 1.21, ESR 41, BNP 60 Procalcitonin 0.06 --OZZY on CKD Back to baseline Monitor BUN/creatinine Avoid nephrotoxic medications Strict ins and outs --Transaminitis Could be from hypoxia --S/p thrombocytopenia Could be from sepsis Monitor --Elevated right hemidiaphragm Chronic --Morbid obesity --Prophylaxis VTE: Heparin drip GI: Protonix --No CPR Because of persistent hypoxia I have personally talked with ECMO team at [facility] who are willing to accept the patient. With family decided not to transfer the patient as the patient did not want any aggressive care from his previous bad experience. Patient definitely did not want trach and the patient's daughter wants to respect that. Lines: Left IJ 01/12, left radial 01/12, positive Martinez Diet: N.p.o. Plan: In/out: -565, urine output 2009 AB.33/49/49 on 60% with PEEP of 20, plateau today was 28, tidal volume 360 Chest x-ray from today shows left lower lobe atelectasis. Chest PT has been ordered along with aggressive suctioning. Patient has been on paralysis now for total of 72 hours. I did try to wean him paralysis yesterday but he got very asynchronous and got hypoxic. I would again try to go off of paralytics by increasing the sedation. I would even add midazolam on top of propofol and fentanyl so that patient is not asynchronous with the vent. 1 more dose of bumetanide 1 mg IV. Try to keep the patient negative balance. I was able to go down on PEEP to 18 as well as FiO2 60%. Goal is to keep sat uration 88 and above. If I have to go up on the FiO2 then I will put in the patient again. Patient's daughter Karoline was called at [phone]. She was updated regarding the current status of her father. I have personally spent 41 minutes of critical care time in the direct managem ent of this patient. This is a life/limb threatening event. This includes time spent evaluating pat ient, direct bedside care, chart review, placing orders, interpretation of diagnostic studies, discussion with consultants, patient, and family members, as well as other required patient management activities. This time is exclusive of all separately billable procedures, and teaching time and separate from and in addition to any other critical care service time. Please note the above document was generated using voice recognition software. It may contain grammatical, syntax or spelling errors. (2) Thrombocytopenia: (3) Acute kidney injury superimposed on chronic kidney disease: (4) Hypoxia: Admission and Anticipated Discharge Date Admission Date: January 09, 2020 Subjective Patient seen and examined at bedside. No acute distress. No adverse events overnight Patient was on FiO2 80, PEEP of 20, tidal volume 360 at the time of examination saturating 93% Yesterday when we weaned off the Precedex patient was asynchronous with the vent and went hypoxic in the low 80s even when he was on high dose of propofol and fentanyl. Afebrile. Making good amount of urine. On fentanyl 150, propofol 35 at the time of examination as well as Nimbex Review of Systems Review of Systems: Unobtainable due to endotracheal tube Paralyzed Physical Exam 2 Physical Exam: Constitutional: No acute distress HEENT: PERRLA, positive ETT Respiratory system: Decreased air entry bilaterally more decreased on the right lower side, no wheeze, no rhonchi, positive crackles CVS: S1-S2 positive, no murmurs or gallops Abdomen: Soft, nontender, nondistended, positive bowel sounds x4, obese Extremities: +2 pulses bilaterally radialis/ dorsalis pedis, no cyanosis, no edema Neuro: Paralyzed Psych: Unable to assess G/U: Positive Martinez Skin: no rashes, warm and dry Lymphatic: no cervical or axillary lymphadenopathy Results & Data Results & Data ([facility]) Vital Signs (Past 12 Hours) Vital Signs Temp Pulse Resp BP Pulse Ox Pulse Ox Pulse Ox 01/16/20 08:47 83 30 H 93 01/16/20 08:00 93 84 L 01/16/20 06:30 37.4 C 75 93 01/16/20 06:21 37.4 C 76 99/67 L 93 01/16/20 06:15 37.4 C 76 93 01/16/20 06:07 37.4 C 79 112/73 93 01/16/20 06:00 37.4 C 76 92 01/16/20 05:45 37.3 C 76 30 H 92 01/16/20 05:30 37.3 C 76 30 H 92 01/16/20 05:15 37.3 C 76 30 H 91 01/16/20 05:07 37.3 C 77 30 H 115/69 91 01/16/20 05:00 37.3 C 80 30 H 87 L 01/16/20 04:58 80 30 H 88 L 01/16/20 04:45 37.3 C 82 30 H 87 L 01/16/20 04:30 37.2 C 83 30 H 86 L 01/16/20 04:28 37.2 C 84 30 H 105/69 01/16/20 04:07 37.2 C 85 30 H 105/69 89 L 01/16/20 04:00 37.2 C 91 H 30 H 89 L 01/16/20 03:32 86 30 H 90 01/16/20 03:30 37.2 C 88 30 H 89 L 01/16/20 03:07 37.3 C 85 30 H 136/82 91 01/16/20 03:00 37.3 C 85 30 H 90 01/16/20 02:30 37.3 C 77 30 H 90 01/16/20 02:07 37.3 C 78 30 H 105/66 91 01/16/20 02:00 37.3 C 79 30 H 91 01/16/20 01:30 37.3 C 76 30 H 91 11/22/20 01:07 37.2 C 74 30 H 103/67 91 01/16/20 01:00 37.2 C 74 30 H 91 01/16/20 00:30 37.3 C 76 30 H 90 01/16/20 00:07 37.3 C 78 106/64 90 01/16/20 00:00 37.3 C 78 90 01/15/20 23:09 81 30 H 89 L 01/15/20 23:07 37.4 C 80 112/69 89 L 01/15/20 23:00 37.4 C 80 89 L 01/15/20 22:28 37.3 C 86 128/79 93 01/16/20 05:59 01/16/20 05:59 Coding Level of Care Code Critical Care 1st 30-74 mins Diagnoses Pneumonia due to COVID-19 virus U07.1; J12.89 Thrombocytopenia D69.6 Acute kidney injury superimposed on chronic kidney disease N17.9; N18.9 Hypoxia R09.02 Time Spent (min) 41
[2020-01-16] MEDS: MIDAZOLAM HCL 125 MG/250 ML BAG IV SCH (10:45)
[2020-01-16] MEDS: MIDAZOLAM BOLUS FROM BAG IV PRN ×2 (10:46→16:50)
[2020-01-16] MEDS: PANTOprazole 40 MG in SYRINGE 0 ML IV SCH ×2 (12:04→20:50)
--- NOTE | 2020-01-16 14:02 | Hospitalist Progress Note ---
Date of Service January 16, 2020 Assessment & Plan (1) Pneumonia due to COVID-19 virus: Pneumonia due to COVID-19 virus with hypoxia-pt declined and was intubated 01/12, with maximum lung protective ventilation remains alive on maximal support, saturations are stable in low 90's high 80's, daily vent adjustments and diuretic dosing Decadron 6 mg IV daily x10 days Convalescent plasma x1, administered Remdesivir IV per protocol eopoprostenol tapering off Previoiusly the Patient significantly decompensated throughout the day on 01/13/2020. I did personally in conversations with [facility], Dr. Morales, about the possibility of ECMO therapy. His hypoxia does make tr ansportation significantly risky for him to succumb to his hypoxic issues while traveling. There was discussion about having an emergent team come to begin ECMO in route. [facility] does not have such a team and [facility] does not have a team either. After discussing this I did call his family discussed it with his daughter Karoline who stated that after his last significant illness 3 years ago he instructed them never to put him through that again. To this end she felt it would be best not to take the risk to transport him to [facility] understanding that his likelihood of survival is extremely poor without it. He is a conditional code at this point time with no CPR. His daughter was updated on multiple events throughout the stay. 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 and prolongued rehab, that situation is what influenced family decision (2) Hypoxia: Patient remains persistently hypoxic despite mechanical ventilation now down to 70-60% FiO2 concern for hypoxic brain injury is paramount as family was explained this continues to have pulmonary protective ventilation managed by Dr Young (3) Acute kidney injury superimposed on chronic kidney disease: improved now cautiously giving bumex dosing (4) Thrombocytopenia: Follow with serial laboratories Admission and Anticipated Discharge Date Admission Date: January 09, 2020 Subjective intubated this am he is now sedated and ventilated Review of Systems Review of Systems: Unobtainable due to endotracheal tube and Unobtainable due to reduced consciousness Physical Exam Physical Exam: intubated and sedated coarse breath sounds. no longer prone he seems comfortably sedated, short shallow respirations skin is warm and pink no peripheral edema Results & Data Results & Data ([facility]) Vital Signs (Past 12 Hours) Vital Signs Temp Pulse Resp BP Pulse Ox Pulse Ox Pulse Ox 01/16/20 12:00 90 119/70 01/16/20 11:07 99.3 F 103 H 119/70 86 L 01/16/20 11:00 99.3 F 105 H 88 L 01/16/20 10:36 109 H 25 H 88 L 01/16/20 10:30 99.3 F 125 H 87 L 01/16/20 10:07 99.5 F 96 H 164/99 H 87 L 01/16/20 10:00 99.5 F 101 H 88 L 01/16/20 09:30 99.5 F 85 93 01/16/20 09:07 99.5 F 95 H 130/78 93 01/16/20 09:00 99.5 F 82 93 01/16/20 08:47 83 30 H 93 01/16/20 08:30 99.5 F 82 93 01/16/20 08:07 99.5 F 88 119/73 93 01/16/20 08:00 99.5 F 84 94 93 84 L 01/16/20 07:39 99.3 F 87 127/76 95 01/16/20 07:30 99.3 F 85 96 01/16/20 07:09 99.3 F 77 95/63 L 94 01/16/20 07:07 99.3 F 77 102/63 93 01/16/20 07:00 99.3 F 76 94 01/16/20 06:30 99.3 F 75 93 01/16/20 06:21 99.3 F 76 99/67 L 93 01/16/20 06:15 99.3 F 76 93 01/16/20 06:07 99.3 F 79 112/73 93 01/16/20 06:00 99.3 F 76 92 01/16/20 05:45 99.1 F 76 30 H 92 01/16/20 05:30 99.1 F 76 30 H 92 01/16/20 05:15 99.1 F 76 30 H 91 01/16/20 05:07 99.1 F 77 30 H 115/69 91 01/16/20 05:00 99.1 F 80 30 H 87 L 11/22/20 04:58 80 30 H 88 L 01/16/20 04:45 99.1 F 82 30 H 87 L 01/16/20 04:30 99.0 F 83 30 H 86 L 01/16/20 04:28 99.0 F 84 30 H 105/69 01/16/20 04:07 99.0 F 85 30 H 105/69 89 L 01/16/20 04:00 99.0 F 91 H 30 H 89 L 01/16/20 03:32 86 30 H 90 01/16/20 03:30 99.0 F 88 30 H 89 L 01/16/20 03:07 99.1 F 85 30 H 136/82 91 01/16/20 03:00 99.1 F 85 30 H 90 01/16/20 02:30 99.1 F 77 30 H 90 01/16/20 02:07 99.1 F 78 30 H 105/66 91 01/16/20 02:00 99.1 F 79 30 H 91 PG Care Time/CCT Total # of Minutes Spent Total Time Spent with Patient: Total time spent is greater than 50% in coordination of care (as documented) at patient's floor/unit and/or counseling patient: Coding Level of Care Code 44579 Subseq Hosp Care Lvl 3 Diagnoses Pneumonia due to COVID-19 virus U07.1; J12.89 Hypoxia R09.02 Acute kidney injury superimposed on chronic kidney disease N17.9; N18.9 Thrombocytopenia D69.6
[2020-01-16] MEDS: fentaNYL citrate 100 MCG/2 ML VIAL IV PRN (16:49)
--- NOTE | 2020-01-16 17:22 | Communication Note ---
Date of Service: January 16, 2020 Critical CARE addendum: Given the high PEEP and oxygen requirement plan to prone the patient again today. Patient was successfully proned in my presence. Patient getting appropriate tidal volumes after proning. Radial and TLC lines in place Patient was on propofol 40, fentanyl 150, midazolam 4 but he was still fighting the vent leading to desaturations. I had to start paralytics again. We will try to wean off paralytics if possible when he is supine again. Vent settings 380/25/20/100 percent. Gradually go down on FiO2 to at least 70% before titrating down the PEEP. I have personally spent additional 23 minutes of critical care time in the direct management of this patient. This is a life/limb threatening event. This includes time spent evaluating patient, direct bedside care, chart review, placing orders, interpretation of diagnostic studies, discussion with consultants, patient, and family members, as well as other required patient management activities. This time is exclusive of all separately billable procedures, and teaching time and separate from and in addition to any other critical care service time. Please note the above document was generated using voice recognition software. It may contain grammatical, syntax or spelling errors. Coding Level of Care Code Critical Care betty castellano'l 30 min Time Spent (min) 23
[2020-01-16] MEDS ORDERED: DEXAMETHASONE SOD PHOSPHATE IV ONE (18:00)
[2020-01-16] MEDS ORDERED: DEXTROSE 5% IV ONE (18:00)
[2020-01-17] MEDS: CISATRACURIUM BESYLATE 40 MG in 0.9 % SODIUM CHLORIDE 80 ML IV SCH ×8 (00:49→14:03)
[2020-01-17] MEDS: propofoL 1,000 MG/100 ML VIAL IV SCH ×6 (00:49→20:42)
[2020-01-17 05:03] LABS: iSTAT Art Bld Gas pCO2 Correct 49 mmHg (35-46); iSTAT Art Bld Gas pH Corrected 7.347 (7.35-7.45); iSTAT Arterial Blood Gas HCO3 27 meg/L (19-24); iSTAT Arterial Blood Gas pCO2 52 mmHg (35-46); iSTAT Arterial Blood Gas pH 7.33 (7.35-7.45); iSTAT Arterial Blood Gas pO2 61 mmHg (80-95); iSTAT Arterial Blood Gas pO2 C 57; iSTAT Carbon Dioxide 29 mmol/L (24-31); iSTAT FiO2 60 %; iSTAT Hematocrit 30 % (42-52); iSTAT Hemoglobin 10.2 g/dl (14.0-18.0); iSTAT Potassium 4.7 mmol/L (3.3-5.0); iSTAT Site Art Line; iSTAT Sodium 138 mmol/L (135-144)
[2020-01-17 05:06] LABS: Hematocrit (blood only) 32.3 % (42-52); Hemoglobin 10.6 g/dL (14.0-18.0); Mean Corpuscular Hemoglobin 33.2 pg (25-34); Mean Corpuscular Hgb Conc 32.8 g/dL (32-36); Mean Corpuscular Volume 101.3 fL (80-100); Mean Platelet Volume 10.1 fL (7.4-10.4); Nucleated RBC # (auto) 0.02 K/uL (0-0); Nucleated RBC % (auto) 0.3 %; Platelet Count 204 K/uL (130-400); RDW Coefficient of Variation 14.6 % (11.5-14.5); RDW Standard Deviation 54.1 fL (36.4-46.3); Red Blood Count 3.19 M/uL (4.7-6.1); White Blood Count 8.51 K/uL (4.8-10.8)
[2020-01-17] MEDS: fentaNYL DRIP 1,250 MCG/250 ML BAG IV SCH ×4 (05:34→21:40)
[2020-01-17 05:35] LABS: Albumin Level 2.6 gm/dl (3.4-5.0); BUN Creatinine Ratio 25.5 (10-20); Calcium 7.5 mg/dl (8.5-10.1); Creatinine Clr Calc Pharmacy 75.2 ml/min; Est GFR (African American) 65.7; Est GFR (Non-African American) 56.7; Magnesium 2.6 mg/dl (1.8-2.4); Potassium 4.5 mmol/L (3.5-5.1)
[2020-01-17 05:38] LABS: Albumin Globulin Ratio 0.6 (0.9-2); Bilirubin,Total 0.4 mg/dl (0.2-1); Globulin 4.4 gm/dl (2.5-4.0); Phosphorus 3.8 mg/dl (2.5-4.9)
[2020-01-17 05:58] LABS: Partial Thromboplastin Time 55.8 Seconds (21.0-31.0)
[2020-01-17 06:28] LABS: Basophils # (manual) 0.08 K/uL (0-0.2); Basophils % (manual) 0.9 %; Lymphocytes % (manual) 3.5 %; Metamyelocytes % (manual) 3.5 %; Monocytes # (manual) 0.22 K/uL (0.11-0.59); Monocytes % (manual) 2.6 %; Myelocytes # (manual) 0.22 K/uL (0-0); Myelocytes % (manual) 2.6 %; Neutrophils % (manual) 86.9 %; RBC Morphology Unremarkable
[2020-01-17] MEDS ORDERED: CARBOHYDRATES FOR HYPOGLYCEMIA PO PRN (10:15)
[2020-01-17] MEDS ORDERED: GLUCOSE 40% GEL 15 GM TUBE PO PRN (10:15)
[2020-01-17] MEDS ORDERED: DEXTROSE 50% 50 ML SYRINGE IV PRN (10:15)
[2020-01-17] MEDS ORDERED: GLUCOSE 10 TABS/TUBE PO PRN (10:15)
[2020-01-17] MEDS ORDERED: GLUCAGON FOR INJ 1 MG VIAL IM PRN (10:15)
[2020-01-17] MEDS: MIDAZOLAM HCL 125 MG/250 ML BAG IV SCH ×2 (10:49→21:40)
[2020-01-17] MEDS: INSULIN ASPART 100 UNITS/ML 3 ML PEN SC SCH ×2 (11:21→17:19)
[2020-01-17 11:35] LABS: iSTAT Art Bld Gas pCO2 Correct 54 mmHg (35-46); iSTAT Arterial Blood Gas HCO3 27 meg/L (19-24); iSTAT Arterial Blood Gas pCO2 54 mmHg (35-46); iSTAT Arterial Blood Gas pH 7.31 (7.35-7.45); iSTAT Arterial Blood Gas pO2 54 mmHg (80-95); iSTAT Arterial Blood Gas pO2 C 54; iSTAT Carbon Dioxide 29 mmol/L (24-31); iSTAT FiO2 60 %; iSTAT Hematocrit 37 % (42-52); iSTAT Hemoglobin 12.6 g/dl (14.0-18.0); iSTAT Potassium 4.3 mmol/L (3.3-5.0); iSTAT Site Art Line; iSTAT Sodium 138 mmol/L (135-144)
--- NOTE | 2020-01-17 12:35 | Critical Care Progress Note ---
Date of Service January 17, 2020 Assessment & Plan (1) Pneumonia due to COVID-19 virus: Impression: 54-year-old male hospital day 8 for hypoxemic respiratory failure in the setting of novel coronavirus infection. Patient was intubated on January 12 and is currently vent day #5 24-hour events: Patient was proned last evening. He appears to recruit with proning. He is remained hemodynamically stable. There have been issues with sedation and he remains on high-dose propofol, Versed, and fentanyl. He was brought down to the ICU this morning and flipped back to supine with stable oxygenation. Recommendations: 1. Neurologic: Continued issues with adequate sedation. Given the fact he has been on high dose medications for a relatively long-term, we will add some oral clonazepam and methadone to his regimen to try and decrease his overall requirement. Aggressive bowel regimen will be required. We will try and wean off of paralytics as tolerated. 2. Cardiovascular: Patient maintains hemodynamic stability. Continue to trend closely. Diuresis as tolerated. We will give an additional 4 mg of Bumex today and follow kidney function closely 3. Pulmonary: ARDS. Peak airway pressures are running in the 31-32 range. Continue aggressive sedation pending improvement in lung compliance and oxygenation. We will try and target PaO2 greater than 55-60. Wean PEEP per ARDS protocols. Family was offered the opportunity to transfer the patient to a higher level of care to consider VV ECMO however the patient apparently expressed desire to not pursue aggressive measures prior to this to include tracheostomy, long-term intubation, feeding tube placement and family elected to keep him here. His chest x-ray does demonstrate a possible left-sided pleural effusion/consolidation. Will check ultrasound and consider thoracentesis if significant fluid identified. We will continue proning as needed until oxygenation improves. Patient completed dexamethasone per the Covid protocol but is now been started on steroids for late-phase ARDS. 4. ID: Blood cultures from admission no growth to date. 5. Renal: Renal function continues to slightly improve and is down to 1.39 today from 1.57. Would continue judicious diuretics as tolerated by kidney function. Electrolytes are stable but calcium will need to be repleted. 6. GI: We will see if we can get a small bore postpyloric tube in place. If so, can consider trickle enteral nutrition which can be continued when the patient is prone. Patient's prior transaminitis appears to be improving and maddy l continue to be trended. 7. Endo: We will closely monitor glucose levels now that he is on high-dose steroids. Sliding scale insulin will be initiated. 8. Heme-onc: Mild anemia. No evidence of acute blood loss. Hold transfusion for now. Previously noted thrombocytopenia has now corrected. We will try and update family today. They have apparently requested the tracheostomy be taken off the table as well as considering transferring the patient to a higher level of care. Unclear if this will be a survivable given the persistent and pervasive gas exchange abnormalities. Family has appropriately made the patient no compressions in the event of a cardiac arrest which I think is reasonable. (2) Thrombocytopenia: (3) Acute kidney injury superimposed on chronic kidney disease: (4) Hypoxia: Admission and Anticipated Discharge Date Admission Date: January 09, 2020 Subjective Patient is intubated sedated and paralyzed. Review of Systems Review of Systems: Unobtainable due to endotracheal tube Physical Exam Constitutional: + mechanically ventilated Intubated and sedated Neck: trachea midline, no thyromegaly Respiratory: normal respiratory effort, lungs clear to auscultation Cardiovascular: RRR, no murmur, no edema Gastrointestinal (Abdomen): normal bowel sounds, soft, nontender, no hepatosplenomegaly Musculoskeletal: Extremities: extremities normal to inspection Skin: no rashes, warm and dry Neurologic: Sedated and paralyzed Lymphatic: no cervical lymphadenopathy Results & Data Results & Data ([facility]) Vital Signs (Past 12 Hours) Vital Signs Temp Pulse Resp BP Pulse Ox 01/17/20 11:48 68 117/77 88 L 01/17/20 11:37 64 114/55 L 01/17/20 11:18 64 117/74 92 01/17/20 11:00 67 91 01/17/20 10:48 67 120/76 90 01/17/20 10:18 71 124/77 90 01/17/20 10:05 84 25 H 90 01/17/20 10:00 79 89 L 01/17/20 09:44 81 145/83 H 92 01/17/20 09:36 87 156/99 H 83 L 01/17/20 09:03 36.2 C L 64 106/71 93 01/17/20 09:00 36.2 C L 63 93 01/17/20 08:33 36.2 C L 64 102/65 92 01/17/20 08:04 36.2 C L 66 91 01/17/20 08:03 36.1 C L 67 106/67 91 01/17/20 08:00 67 01/17/20 07:20 64 25 H 93 01/17/20 07:03 36.1 C L 65 109/67 92 01/17/20 05:33 36.0 C L 68 25 H 112/72 92 01/17/20 05:03 36.0 C L 66 25 H 107/70 92 01/17/20 05:00 36.0 C L 65 25 H 92 01/17/20 04:48 66 25 H 92 01/17/20 04:32 36.0 C L 66 25 H 107/68 91 01/17/20 04:02 36.0 C L 68 25 H 108/69 92 01/17/20 04:00 35.9 C L 67 25 H 92 01/17/20 03:44 66 25 H 92 01/17/20 03:32 35.9 C L 66 25 H 110/72 92 01/17/20 03:02 35.9 C L 66 25 H 107/70 92 01/17/20 03:00 35.9 C L 68 25 H 92 01/17/20 02:32 35.9 C L 67 25 H 109/70 92 01/17/20 02:02 36.0 C L 64 25 H 108/70 93 01/17/20 02:00 36.0 C L 66 25 H 93 01/17/20 01:32 36.0 C L 67 25 H 109/69 92 01/17/20 01:02 36.0 C L 68 25 H 108/70 91 01/17/20 01:00 36.0 C L 68 25 H 91 01/17/20 00:32 36.1 C L 69 25 H 107/71 93 Laboratory Results 01/17/20 04:32 01/17/20 04:32 01/13/20 06:40 ABG pH 7.36 ABG pCO2 43 ABG pO2 54 L ABG HCO3 24 ABG O2 Saturation 86.0 L ABG Base Excess -1.5 Diagnostic Findings Last chest x-ray from yesterday was reviewed with tubes and lines in reasonably good position. There was a density at the left lung base suggestive of possible effusion. Lungs were hazy throughout. Coding Level of Care Code Critical Care 1st 30-74 mins Diagnoses Pneumonia due to COVID-19 virus U07.1; J12.89 Thrombocytopenia D69.6 Acute kidney injury superimposed on chronic kidney disease N17.9; N18.9 Hypoxia R09.02 Time Spent (min) 45
[2020-01-17] MEDS: PANTOprazole 40 MG in SYRINGE 0 ML IV SCH ×2 (13:03→20:41)
[2020-01-17] MEDS: ZINC SULFATE 220 MG CAPSULE PO SCH (13:04)
[2020-01-17] MEDS: DEXAMETHASONE SOD PHOSPHATE 20 MG in DEXTROSE 5% 25 ML IV SCH (13:04)
[2020-01-17] MEDS ORDERED: CALCIUM CHLORIDE 10% 1,000 MG in SODIUM CHLORIDE 0.9% 50 ML IV ONE (13:30)
[2020-01-17] MEDS ORDERED: BUMETANIDE 4 MG in SYRINGE 0 ML IV ONE (13:30)
--- NOTE | 2020-01-17 14:51 | XRay Report ---
KUB HISTORY: Status post placement of a feeding tube feeding tube placement COMPARISON: Chest radiograph 01/16/2020, KUB 04/10/2017 FINDINGS: There is an enteric tube noted overlying the midline, 3.5 cm superior to the mehrdad. Left I J central venous catheter distal tip terminates the left of midline in the expected location of the l eft brachiocephalic vein. There is a feeding tube noted overlying the left midabdomen, distal tip pro jecting inferiorly outside the [id number]. Feeding tube distal tip is not imaged. Bilateral pulmonary opacities with cardiac megaly and hypoinflation. IMPRESSION: 1. Feeding tube projects over the left midabdomen in the expected location of the mid distended stoma ch. 2. Left sided IJ central venous catheter appears to have been partially withdrawn, now with distal ti p projecting the expected location of the left brachiocephalic vein. 3. Satisfactory positioning of the endotracheal tube. ACT 112: Negative or not required by law. The above report was generated using voice recognition software. It may contain grammatical, syntax o r spelling errors. Electronically signed by: Cabrera Mcgowan M.D. 01/17/2020 2:50 PM
[2020-01-17] MEDS: METHADONE HCL 5 MG TAB PO SCH ×2 (15:27→20:41)
[2020-01-17] MEDS: clonazePAM 0.5 MG TAB PO SCH ×2 (15:27→20:41)
--- NOTE | 2020-01-17 16:30 | XRay Report ---
XR KUB/Abdomen 1 view CLINICAL HISTORY: Feeding tube placement COMPARISON STUDY: Earlier in the day FINDINGS: A single view the abdomen demonstrates a feeding tube positioned within the stomach. There is a relatively gasless abdomen. There is a left mid abdominal calcification possibly representing a lower pole left renal calculus. IMPRESSION: 1. Feeding tube within the stomach 2. Nonobstructive bowel gas pattern 3. Suspected left-sided nephrolithiasis ACT 112: Negative or not required by law. Electronically signed by: Yasmany Roberson M.D. 01/17/2020 4:28 PM
[2020-01-17] MEDS ORDERED: VECURONIUM BROMIDE 10 MG VIAL IV STA (18:07)
--- NOTE | 2020-01-17 19:54 | XRay Report ---
SINGLE VIEW CHEST CLINICAL HISTORY: Respiratory failure. Intubation. FINDINGS: 3 AP, portable, upright chest radiographs are compared to study dated 01/16/2020. The [facility] is degraded by portable technique and patient rotation. An endotracheal tube has been placed . This projects 3.4 cm above the mehrdad. An enteric tube has been placed and projects below the diaph ragm over the distal stomach. A left internal jugular central venous catheter has been pulled back. T he tip now projects over the left innominate vein. The cardiomediastinal silhouette is unremarkable. There is bibasilar scarring/atelectasis. No large pleural effusion or pneumothorax is seen. Interstit ial opacities have improved from previous. This is most confluent in the right upper lobe. The skelet al structures are osteopenic. The bony thorax is grossly intact. Fusion hardware is seen in the lower cervical spine. IMPRESSION: 1. Lines and tubes as above. 2. Interstitial airspace opacities have improved from 01/16/2020. ACT 112: Negative or not required by law. Electronically signed by: Eddie Austin M.D. 01/17/2020 7:53 PM
--- NOTE | 2020-01-17 21:48 | Hospitalist Progress Note ---
Date of Service January 17, 2020 Assessment & Plan (1) Pneumonia due to COVID-19 virus: Pneumonia due to COVID-19 virus with hypoxia-pt declined and was intubated 01/12, with maximum lung protective ventilation remains alive on maximal support, desaturating today to 70-80s, using high PEEP, more sedations Decadron 6 mg IV daily x10 days Convalescent plasma x1, administered Remdesivir IV per protocol Previoiusly the Patient significantly decompensated throughout the day on 01/13/2020. prior hospitalist had conversation with [facility], Dr. Morales, about the possibility of ECMO therapy. His hypoxia does make transportation significantly risky for him to succumb to his hypoxic issues while traveling. There was discussion about having an emergent team come to begin ECMO in route. [facility] does not have such a team and [place] does not have a team either. Dr. Juarez is in contact with family about plan, prognosis etc he is DNR if he would have cardiac arrest previously the pt did have a prolonged stay at [facility] due to sepsis with osteo of cervical spine, this resulted in tracheostomy and prolonged rehab, that situation is what influenced family decision (2) Hypoxia: Patient remains persistently hypoxic despite mechanical ventilation continues to have pulmonary protective ventilation managed by Dr Juarez (3) Acute kidney injury superimposed on chronic kidney disease: improved now cautiously giving bumex dosing (4) Thrombocytopenia: Follow with serial laboratories Admission and Anticipated Discharge Date Admission Date: January 09, 2020 Subjective discussed with ICU staff, Dr Juarez managing patient he had a meeting with family today difficult to oxygenate Review of Systems Review of Systems: Unobtainable due to endotracheal tube and Unobtainable due to reduced consciousness Physical Exam Constitutional: well developed and + mechanically ventilated; no acute distress Respiratory: normal respiratory effort, lungs clear to auscultation Cardiovascular: RRR, no murmur, no edema Gastrointestinal (Abdomen): normal bowel sounds, soft, nontender, no hepatosplenomegaly Skin: no rashes, warm and dry Neurologic: + obtunded; no focal motor deficits Results & Data Results & Data ([facility]) Vital Signs (Past 12 Hours) Vital Signs Pulse Resp BP Pulse Ox Pulse Ox 01/17/20 19:14 64 30 H 100 01/17/20 16:00 64 115/56 L 87 L 11/23/20 15:35 64 25 H 87 L 01/17/20 12:44 76 25 H 89 L 01/17/20 11:48 68 117/77 88 L 01/17/20 11:37 64 114/55 L 01/17/20 11:18 64 117/74 92 01/17/20 11:00 67 91 01/17/20 10:48 67 120/76 90 01/17/20 10:18 71 124/77 90 01/17/20 10:05 84 25 H 90 01/17/20 10:00 79 89 L 01/17/20 09:44 81 145/83 H 92 Laboratory Results Laboratory Results - last 24 hr 01/16/20 01/17/20 01/17/20 10:32 00:15 04:28 WBC RBC Hgb POC Hgb 12.6 L Hct POC Hct 37 L MCV MCH MCHC RDW Std Deviation RDW Coeff of Theresa Plt Count MPV Absolute Nucleated RBC Nucleated RBC % (auto) Neutrophils % (Manual) Lymphocytes % (Manual) Monocytes % (Manual) Basophils % (Manual) Metamyelocytes % (Man) Myelocytes % (Man) Neutrophils # (Manual) Total Absolute Neuts Lymphocytes # (Manual) Total Abs Lymphocytes Monocytes # (Manual) Basophils # (Manual) Metamyelocytes # (Man) Myelocytes # (Manual) RBC Morphology APTT PTT Ratio Sample Site Art Line POC pH 7.31 L POC pCO2 54 H POC pO2 54 L POC HCO3 27 H POC Total CO2 29 POC Base Excess 1.0 ABG pH (Temp Correct) 7.310 L ABG pCO2 (Temp Corrct 54 H POC ABG pO2 at Pt Temp 54 POC ABG O2 Sat 84.0 L Calvin Test NA O2 Delivery Device Ventilator POC O2 Rate 25 Minute Ventilation POC FiO2 60 Tidal Volume 400 PEEP 18 POC Sodium 138 Sodium POC Potassium 4.3 Potassium Chloride Carbon Dioxide Anion Gap BUN Creatinine Est Cr Clr Drug Dosing Est GFR ( Amer) Est GFR (Non-Af Amer) BUN/Creatinine Ratio Glucose POC Glucose 142 H 175 H Calcium Phosphorus Magnesium Total Bilirubin AST ALT Alkaline Phosphatase Total Protein Albumin Globulin Albumin/Globulin Ratio 01/17/20 01/17/20 01/17/20 04:32 04:32 04:32 WBC 8.51 RBC 3.19 L Hgb 10.6 L POC Hgb Hct 32.3 L POC Hct MCV 101.3 H MCH 33.2 MCHC 32.8 RDW Std Deviation 54.1 H RDW Coeff of Theresa 14.6 H Plt Count 204 MPV 10.1 Absolute Nucleated RBC 0.02 H Nucleated RBC % (auto) 0.3 Neutrophils % (Manual) 86.9 Lymphocytes % (Manual) 3.5 Monocytes % (Manual) 2.6 Basophils % (Manual) 0.9 Metamyelocytes % (Man) 3.5 Myelocytes % (Man) 2.6 Neutrophils # (Manual) 7.40 H Total Absolute Neuts 7.40 H Lymphocytes # (Manual) 0.30 L Total Abs Lymphocytes 0.30 L Monocytes # (Manual) 0.22 Basophils # (Manual) 0.08 Metamyelocytes # (Man) 0.30 H Myelocytes # (Manual) 0.22 H RBC Morphology Unremarkable APTT 55.8 H* PTT Ratio 2.0 Sample Site POC pH POC pCO2 POC pO2 POC HCO3 POC Total CO2 POC Base Excess ABG pH (Temp Correct) ABG pCO2 (Temp Corrct POC ABG pO2 at Pt Temp POC ABG O2 Sat Calvin Test O2 Delivery Device POC O2 Rate Minute Ventilation POC FiO2 Tidal Volume PEEP POC Sodium Sodium 137 POC Potassium Potassium 4.5 Chloride 105 Carbon Dioxide 28 Anion Gap 4.0 BUN 35 H Creatinine 1.39 Est Cr Clr Drug Dosing 75.2 Est GFR ( Amer) 65.7 Est GFR (Non-Af Amer) 56.7 BUN/Creatinine Ratio 25.5 H Glucose 155 H POC Glucose Calcium 7.5 L Phosphorus 3.8 Magnesium 2.6 H Total Bilirubin 0.4 AST 56 H ALT 108 H Alkaline Phosphatase 47 Total Protein 7.0 Albumin 2.6 L Globulin 4.4 H Albumin/Globulin Ratio 0.6 L 01/17/20 01/17/20 01/17/20 04:47 11:01 17:04 WBC RBC Hgb POC Hgb 10.2 L Hct POC Hct 30 L MCV MCH MCHC RDW Std Deviation RDW Coeff of Theresa Plt Count MPV Absolute Nucleated RBC Nucleated RBC % (auto) Neutrophils % (Manual) Lymphocytes % (Manual) Monocytes % (Manual) Basophils % (Manual) Metamyelocytes % (Man) Myelocytes % (Man) Neutrophils # (Manual) Total Absolute Neuts Lymphocytes # (Manual) Total Abs Lymphocytes Monocytes # (Manual) Basophils # (Manual) Metamyelocytes # (Man) Myelocytes # (Manual) RBC Morphology APTT PTT Ratio Sample Site Art Line POC pH 7.33 L POC pCO2 52 H POC pO2 61 L POC HCO3 27 H POC Total CO2 29 POC Base Excess 1.0 ABG pH (Temp Correct) 7.347 L ABG pCO2 (Temp Corrct 49 H POC ABG pO2 at Pt Temp 57 POC ABG O2 Sat 89.0 L Calvin Test NA O2 Delivery Device Ventilator POC O2 Rate 25 Minute Ventilation 9.5 POC FiO2 60 Tidal Volume 380 PEEP 18 POC Sodium 138 Sodium POC Potassium 4.7 Potassium Chloride Carbon Dioxide Anion Gap BUN Creatinine Est Cr Clr Drug Dosing Est GFR ( Amer) Est GFR (Non-Af Amer) BUN/Creatinine Ratio Glucose POC Glucose 125 H 130 H Calcium Phosphorus Magnesium Total Bilirubin AST ALT Alkaline Phosphatase Total Protein Albumin Globulin Albumin/Globulin Ratio Medications Administered Current Inpatient Medications Clonazepam (Clonazepam 0.5 Mg Tab) 0.5 mg PO BID JONATHAN Stop: 02/16/20 13:29 Last Admin: 01/17/20 20:41 Dose: 0.5 mg Documented by: Dextrose (Dextrose 50% 50 Ml Syringe) 25 - 50 ml IV UD PRN; Protocol PRN Reason: Hypoglycemia Protocol Stop: 02/16/20 10:14 Enoxaparin Sodium (Enoxaparin Inj 40 Mg/0.4 Ml Syr) 40 mg SQ QAM JONATHAN Stop: 02/17/20 08:59 Fentanyl Citrate (Fentanyl Bolus From Bag) 50 mcg IV Q60M PRN PRN Reason: Pain or Agitation Stop: 01/27/20 13:00 Last Admin: 01/16/20 16:50 Dose: 50 mcg Documented by: Glucagon (Glucagon For Inj 1 Mg Vial) 1 mg IM UD PRN; Protocol PRN Reason: Hypoglycemia Protocol Stop: 02/16/20 10:14 Glucose (Glucose 40% Gel 15 Gm Tube) 15 - 30 gm PO UD PRN; Protocol PRN Reason: Hypoglycemia Protocol Stop: 02/16/20 10:14 Glucose (Glucose 10 Tabs/Tube) 4 - 8 tabs PO UD PRN; Protocol PRN Reason: Hypoglycemia Protocol Stop: 02/16/20 10:14 Heparin Sodium (Beef Lung) (Heparin 10 Unit/Ml 5 Ml Flush) 5 ml FLUSH PRN PRN PRN Reason: Flush Stop: 02/12/20 23:16 Fentanyl Citrate (Fentanyl Drip) 1,250 mcg in 250 mls @ 30 mls/hr IV [facility]8H20M [facility]; Protocol Stop: 01/27/20 13:14 Last Admin: 01/17/20 21:40 Dose: 150 mcg/hr, 30 mls/hr Documented by: Propofol (Diprivan) 1,000 mg in 100 mls @ 27.264 mls/hr IV .Q3H41M [facility]; Protocol Stop: 01/19/20 16:14 Last Admin: 01/17/20 20:42 Dose: 40 mcg/kg/min, 27.3 mls/hr Documented by: Midazolam HCl (Versed) 125 mg in 250 mls @ 24 mls/hr IV .[id number] [facility]; Protocol Stop: 02/15/20 10:29 Last Admin: 01/17/20 21:40 Dose: 12 mg/hr, 24 mls/hr Documented by: Dexamethasone Sodium Phosphate (10 mg/ Syringe) 2.5 mls @ 1 mls/min IV Q24H [facility] Stop: 01/25/20 09:03 Dexamethasone Sodium Phosphate (20 mg/ Dextrose) 30 mls @ 1 mls/min IV DAILY [facility] Stop: 01/20/20 09:29 Last Infusion: 01/17/20 13:36 Dose: Infused Documented by: Pantoprazole Sodium 40 mg/ (Syringe) 10 mls @ 5 mls/min IV Q12H [facility] Stop: 02/15/20 20:59 Last Admin: 01/17/20 20:41 Dose: 5 mls/min Documented by: Insulin Aspart (Insulin Aspart 100 Units/Ml 3 Ml Pen) 0 units SC Q6 [facility] Stop: 02/16/20 11:59 Last Admin: 01/17/20 17:19 Dose: Not Given Documented by: Methadone HCl (Methadone Hcl 5 Mg Tab) 5 mg PO BID [facility] Stop: 01/31/20 13:29 Last Admin: 01/17/20 20:41 Dose: 5 mg Documented by: Midazolam HCl (Midazolam Bolus From Bag) 2 mg IV Q60M PRN PRN Reason: Sedation Stop: 02/15/20 10:22 Last Admin: 01/16/20 16:50 Dose: 2 mg Documented by: Miscellaneous (Carbohydrates For Hypoglycemia ) 15 - 30 gm PO UD PRN PRN Reason: Hypoglycemia Treatment Stop: 02/16/20 10:14 Ondansetron HCl (Ondansetron Inj 2 Mg/Ml 2 Ml Vial) 4 mg IV Q6H PRN PRN Reason: Nausea Stop: 02/08/20 22:35 Zinc Sulfate (Zinc Sulfate 220 Mg Capsule) 220 mg PO QAM JONATHAN Stop: 02/10/20 08:59 Last Admin: 01/17/20 13:04 Dose: 220 mg Documented by: PG Care Time/CCT Total # of Minutes Spent Total Time Spent with Patient: Total time spent is greater than 50% in coordination of care (as documented) at patient's floor/unit and/or counseling patient: Coding Level of Care Code 21258 Subseq Hosp Care Lvl 2 Diagnoses Pneumonia due to COVID-19 virus U07.1; J12.89 Hypoxia R09.02 Acute kidney injury superimposed on chronic kidney disease N17.9; N18.9 Thrombocytopenia D69.6
[2020-01-18] MEDS: INSULIN ASPART 100 UNITS/ML 3 ML PEN SC SCH ×4 (00:11→17:43)
[2020-01-18] MEDS: propofoL 1,000 MG/100 ML VIAL IV SCH ×6 (00:13→20:02)
[2020-01-18 05:19] LABS: Hemoglobin 10.8 g/dL (14.0-18.0); Mean Corpuscular Hemoglobin 32.6 pg (25-34); Mean Corpuscular Hgb Conc 32.7 g/dL (32-36); Mean Corpuscular Volume 99.7 fL (80-100); Mean Platelet Volume 10.2 fL (7.4-10.4); Nucleated RBC # (auto) 0.04 K/uL (0-0); Nucleated RBC % (auto) 0.4 %; Platelet Count 230 K/uL (130-400); RDW Coefficient of Variation 14.5 % (11.5-14.5); RDW Standard Deviation 51.8 fL (36.4-46.3); Red Blood Count 3.31 M/uL (4.7-6.1); White Blood Count 10.16 K/uL (4.8-10.8)
[2020-01-18 05:27] LABS: Partial Thromboplastin Ratio 0.8; Partial Thromboplastin Time 23.5 Seconds (21.0-31.0)
[2020-01-18] MEDS: fentaNYL DRIP 1,250 MCG/250 ML BAG IV SCH ×2 (05:44→12:54)
[2020-01-18 05:46] LABS: BUN Creatinine Ratio 28.1 (10-20); C Reactive Protein 3.14 mg/dl (0-0.29); Calcium 8.2 mg/dl (8.5-10.1); Creatinine Clr Calc Pharmacy 63.8 ml/min; Est GFR (African American) 53.8; Est GFR (Non-African American) 46.4; Magnesium 2.7 mg/dl (1.8-2.4); Phosphorus 3.8 mg/dl (2.5-4.9); Potassium 4.3 mmol/L (3.5-5.1)
[2020-01-18 05:50] LABS: iSTAT Arterial Blood Gas HCO3 25 meg/L (19-24); iSTAT Arterial Blood Gas pCO2 40 mmHg (35-46); iSTAT Arterial Blood Gas pO2 71 mmHg (80-95); iSTAT Carbon Dioxide 26 mmol/L (24-31); iSTAT FiO2 60 %; iSTAT Site Art Line
[2020-01-18 05:56] LABS: ALC (manual) 0.27 K/uL (1.2-3.4); ANC (manual) 9.16 K/uL (1.4-6.5); Lymphocytes # (manual) 0.27 K/uL (1.2-3.4); Lymphocytes % (manual) 2.7 %; Metamyelocytes # (manual) 0.18 K/uL (0-0); Metamyelocytes % (manual) 1.8 %; Monocytes # (manual) 0.18 K/uL (0.11-0.59); Monocytes % (manual) 1.8 %; Myelocytes # (manual) 0.36 K/uL (0-0); Myelocytes % (manual) 3.5 %; Neutrophils # (manual) 9.16 K/uL (1.4-6.5); Neutrophils % (manual) 90.2 %; RBC Morphology Unremarkable
--- NOTE | 2020-01-18 07:33 | Hospitalist Progress Note ---
Date of Service January 18, 2020 Assessment & Plan (1) Pneumonia due to COVID-19 virus: Pneumonia due to COVID-19 virus with hypoxia-pt declined and was intubated 01/12, with maximum lung protective ventilation remains alive on maximal support, desaturating today to 70-80s, using high PEEP, more sedations Decadron 6 mg IV daily x10 days Convalescent plasma x1, administered Remdesivir IV per protocol Previoiusly the Patient significantly decompensated throughout the day on 01/13/2020. prior hospitalist had conversation with [facility], Dr. Morales, about the possibility of ECMO therapy. His hypoxia does make transportation significantly risky for him to succumb to his hypoxic issues while traveling. There was discussion about having an emergent team come to begin ECMO in route. [facility] does not have such a team and [facility] does not have a team either. Dr. 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 Juarez difficult time with ventilation last night, placed in prone due to profound hypoxia he then had cuff leak with worsening hypoxia emergent re-intubation and placed on inverse ratio ventilation that improved saturations patient is more stable today Dr. Juarez has been updating family Review of Systems Review of Systems: Unobtainable due to endotracheal tube Physical Exam Constitutional: well developed and + mechanically ventilated; no acute distress Respiratory: normal respiratory effort, lungs clear to auscultation Cardiovascular: RRR, no murmur, no edema Gastrointestinal (Abdomen): normal bowel sounds, soft, nontender, no hepatosplenomegaly Skin: no rashes, warm and dry Neurologic: + obtunded; no focal motor deficits Results & Data Results & Data ([facility]) Vital Signs (Past 12 Hours) Vital Signs Temp Pulse Resp BP Pulse Ox 01/18/20 06:30 63 30 H 106/69 89 L 01/18/20 06:00 60 30 H 112/73 88 L 01/18/20 05:30 58 L 30 H 104/62 95 01/18/20 05:28 60 30 H 95 01/18/20 05:00 59 L 30 H 103/70 94 01/18/20 04:30 58 L 30 H 100/67 97 01/18/20 04:00 36.4 C L 58 L 30 H 101/66 97 01/18/20 03:36 58 L 30 H 99 01/18/20 03:30 58 L 30 H 107/71 97 01/18/20 03:00 58 L 30 H 99/68 L 99 01/18/20 02:30 58 L 30 H 100/67 98 01/18/20 02:00 58 L 30 H 97/68 L 98 01/18/20 01:30 60 30 H 101/68 97 01/18/20 01:00 60 30 H 99/68 L 96 01/18/20 00:36 58 L 30 H 98 01/18/20 00:30 60 30 H 92/66 L 98 01/18/20 00:00 36.4 C L 60 30 H 109/69 100 01/17/20 23:30 61 30 H 100/73 95 01/17/20 23:00 61 30 H 100/73 98 01/17/20 22:30 63 30 H 100/73 98 01/17/20 22:00 63 30 H 101/72 99 01/17/20 21:30 65 30 H 102/77 98 01/17/20 21:00 67 30 H 98/70 L 100 01/17/20 20:30 68 30 H 100 01/17/20 20:00 36.4 C L 64 30 H 96/73 L 100 Laboratory Results Laboratory Results - last 24 hr 01/16/20 01/17/20 01/17/20 10:32 11:01 17:04 WBC RBC Hgb POC Hgb 12.6 L Hct POC Hct 37 L MCV MCH MCHC RDW Std Deviation RDW Coeff of Theresa Plt Count MPV Absolute Nucleated RBC Nucleated RBC % (auto) Neutrophils % (Manual) Lymphocytes % (Manual) Monocytes % (Manual) Metamyelocytes % (Man) Myelocytes % (Man) Neutrophils # (Manual) Total Absolute Neuts Lymphocytes # (Manual) Total Abs Lymphocytes Monocytes # (Manual) Metamyelocytes # (Man) Myelocytes # (Manual) RBC Morphology APTT PTT Ratio Sample Site Art Line POC pH 7.31 L POC pCO2 54 H POC pO2 54 L POC HCO3 27 H POC Total CO2 29 POC Base Excess 1.0 ABG pH (Temp Correct) 7.310 L ABG pCO2 (Temp Corrct 54 H POC ABG pO2 at Pt Temp 54 POC ABG O2 Sat 84.0 L Calvin Test NA O2 Delivery Device Ventilator POC O2 Rate 25 Minute Ventilation POC FiO2 60 Tidal Volume 400 PEEP 18 POC Sodium 138 Sodium POC Potassium 4.3 Potassium Chloride Carbon Dioxide Anion Gap BUN Creatinine Est Cr Clr Drug Dosing Est GFR ( Amer) Est GFR (Non-Af Amer) BUN/Creatinine Ratio Glucose POC Glucose 125 H 130 H Calcium Phosphorus Magnesium Lactate Dehydrogenase C-Reactive Protein 01/17/20 01/18/20 01/18/20 23:38 04:30 04:30 WBC 10.16 RBC 3.31 L Hgb 10.8 L POC Hgb Hct 33.0 L POC Hct MCV 99.7 MCH 32.6 MCHC 32.7 RDW Std Deviation 51.8 H RDW Coeff of Theresa 14.5 Plt Count 230 MPV 10.2 Absolute Nucleated RBC 0.04 H Nucleated RBC % (auto) 0.4 Neutrophils % (Manual) 90.2 Lymphocytes % (Manual) 2.7 Monocytes % (Manual) 1.8 Metamyelocytes % (Man) 1.8 Myelocytes % (Man) 3.5 Neutrophils # (Manual) 9.16 H Total Absolute Neuts 9.16 H Lymphocytes # (Manual) 0.27 L Total Abs Lymphocytes 0.27 L Monocytes # (Manual) 0.18 Metamyelocytes # (Man) 0.18 H Myelocytes # (Manual) 0.36 H RBC Morphology Unremarkable APTT 23.5 PTT Ratio 0.8 Sample Site POC pH POC pCO2 POC pO2 POC HCO3 POC Total CO2 POC Base Excess ABG pH (Temp Correct) ABG pCO2 (Temp Corrct POC ABG pO2 at Pt Temp POC ABG O2 Sat Calvin Test O2 Delivery Device POC O2 Rate Minute Ventilation POC FiO2 Tidal Volume PEEP POC Sodium Sodium POC Potassium Potassium Chloride Carbon Dioxide Anion Gap BUN Creatinine Est Cr Clr Drug Dosing Est GFR ( Amer) Est GFR (Non-Af Amer) BUN/Creatinine Ratio Glucose POC Glucose 146 H Calcium Phosphorus Magnesium Lactate Dehydrogenase C-Reactive Protein 01/18/20 01/18/20 01/18/20 04:30 04:30 05:33 WBC RBC Hgb POC Hgb Hct POC Hct MCV MCH MCHC RDW Std Deviation RDW Coeff of Theresa Plt Count MPV Absolute Nucleated RBC Nucleated RBC % (auto) Neutrophils % (Manual) Lymphocytes % (Manual) Monocytes % (Manual) Metamyelocytes % (Man) Myelocytes % (Man) Neutrophils # (Manual) Total Absolute Neuts Lymphocytes # (Manual) Total Abs Lymphocytes Monocytes # (Manual) Metamyelocytes # (Man) Myelocytes # (Manual) RBC Morphology APTT PTT Ratio Sample Site POC pH POC pCO2 POC pO2 POC HCO3 POC Total CO2 POC Base Excess ABG pH (Temp Correct) ABG pCO2 (Temp Corrct POC ABG pO2 at Pt Temp POC ABG O2 Sat Calvin Test O2 Delivery Device POC O2 Rate Minute Ventilation POC FiO2 Tidal Volume PEEP POC Sodium Sodium 136 POC Potassium Potassium 4.3 Chloride 104 Carbon Dioxide 26 Anion Gap 6.0 BUN 46 H Creatinine 1.64 H Est Cr Clr Drug Dosing 63.8 Est GFR ( Amer) 53.8 Est GFR (Non-Af Amer) 46.4 BUN/Creatinine Ratio 28.1 H Glucose 131 H POC Glucose 132 H Calcium 8.2 L Phosphorus 3.8 Magnesium 2.7 H Lactate Dehydrogenase 290 H C-Reactive Protein 3.14 H 01/18/20 05:38 WBC RBC Hgb POC Hgb Hct POC Hct MCV MCH MCHC RDW Std Deviation RDW Coeff of Theresa Plt Count MPV Absolute Nucleated RBC Nucleated RBC % (auto) Neutrophils % (Manual) Lymphocytes % (Manual) Monocytes % (Manual) Metamyelocytes % (Man) Myelocytes % (Man) Neutrophils # (Manual) Total Absolute Neuts Lymphocytes # (Manual) Total Abs Lymphocytes Monocytes # (Manual) Metamyelocytes # (Man) Myelocytes # (Manual) RBC Morphology APTT PTT Ratio Sample Site Art Line POC pH 7.40 POC pCO2 40 POC pO2 71 L POC HCO3 25 H POC Total CO2 26 POC Base Excess 0.0 ABG pH (Temp Correct) ABG pCO2 (Temp Corrct POC ABG pO2 at Pt Temp POC ABG O2 Sat 94.0 Calvin Test NA O2 Delivery Device Ventilator POC O2 Rate 30 Minute Ventilation 12.1 POC FiO2 60 Tidal Volume 380 PEEP 15 POC Sodium Sodium POC Potassium Potassium Chloride Carbon Dioxide Anion Gap BUN Creatinine Est Cr Clr Drug Dosing Est GFR ( Amer) Est GFR (Non-Af Amer) BUN/Creatinine Ratio Glucose POC Glucose Calcium Phosphorus Magnesium Lactate Dehydrogenase C-Reactive Protein Medications Administered Current Inpatient Medications Clonazepam (Clonazepam 0.5 Mg Tab) 0.5 mg PO BID REPLACED BY [facility] Stop: 02/16/20 13:29 Last Admin: 01/17/20 20:41 Dose: 0.5 mg Documented by: Dextrose (Dextrose 50% 50 Ml Syringe) 25 - 50 ml IV UD PRN; Protocol PRN Reason: Hypoglycemia Protocol Stop: 02/16/20 10:14 Enoxaparin Sodium (Enoxaparin Inj 40 Mg/0.4 Ml Syr) 40 mg SQ QAM JONATHAN Stop: 02/17/20 08:59 Fentanyl Citrate (Fentanyl Bolus From Bag) 50 mcg IV Q60M PRN PRN Reason: Pain or Agitation Stop: 01/27/20 13:00 Last Admin: 01/16/20 16:50 Dose: 50 mcg Documented by: Glucagon (Glucagon For Inj 1 Mg Vial) 1 mg IM UD PRN; Protocol PRN Reason: Hypoglycemia Protocol Stop: 02/16/20 10:14 Glucose (Glucose 40% Gel 15 Gm Tube) 15 - 30 gm PO UD PRN; Protocol PRN Reason: Hypoglycemia Protocol Stop: 02/16/20 10:14 Glucose (Glucose 10 Tabs/Tube) 4 - 8 tabs PO UD PRN; Protocol PRN Reason: Hypoglycemia Protocol Stop: 02/16/20 10:14 Heparin Sodium (Beef Lung) (Heparin 10 Unit/Ml 5 Ml Flush) 5 ml FLUSH PRN PRN PRN Reason: Flush Stop: 02/12/20 23:16 Fentanyl Citrate (Fentanyl Drip) 1,250 mcg in 250 mls @ 30 mls/hr IV .Q8H20M REPLACED BY [facility]; Protocol Stop: 01/27/20 13:14 Last Titration: 01/18/20 06:56 Dose: 150 mcg/hr, 30 mls/hr Documented by: Propofol (Diprivan) 1,000 mg in 100 mls @ 20.448 mls/hr IV .Q4H54M REPLACED BY [facility]; Protocol Stop: 01/19/20 16:14 Last Titration: 01/18/20 06:56 Dose: 30 mcg/kg/min, 20.4 mls/hr Documented by: Midazolam HCl (Versed) 125 mg in 250 mls @ 24 mls/hr IV .[id number] JONATHAN; Protocol Stop: 02/15/20 10:29 Last Titration: 01/18/20 06:56 Dose: 12 mg/hr, 24 mls/hr Documented by: Dexamethasone Sodium Phosphate (10 mg/ Syringe) 2.5 mls @ 1 mls/min IV Q24H REPLACED BY [facility] Stop: 01/25/20 09:03 Dexamethasone Sodium Phosphate (20 mg/ Dextrose) 30 mls @ 1 mls/min IV DAILY REPLACED BY [facility] Stop: 01/20/20 09:29 Last Infusion: 01/17/20 13:36 Dose: Infused Documented by: Pantoprazole Sodium 40 mg/ (Syringe) 10 mls @ 5 mls/min IV Q12H REPLACED BY [facility] Stop: 02/15/20 20:59 Last Admin: 01/17/20 20:41 Dose: 5 mls/min Documented by: Insulin Aspart (Insulin Aspart 100 Units/Ml 3 Ml Pen) 0 units SC Q6 REPLACED BY [facility] Stop: 02/16/20 11:59 Last Admin: 01/18/20 05:44 Dose: Not Given Documented by: Methadone HCl (Methadone Hcl 5 Mg Tab) 5 mg PO BID REPLACED BY [facility] Stop: 01/31/20 13:29 Last Admin: 01/17/20 20:41 Dose: 5 mg Documented by: Midazolam HCl (Midazolam Bolus From Bag) 2 mg IV Q60M PRN PRN Reason: Sedation Stop: 02/15/20 10:22 Last Admin: 01/16/20 16:50 Dose: 2 mg Documented by: Miscellaneous (Carbohydrates For Hypoglycemia ) 15 - 30 gm PO UD PRN PRN Reason: Hypoglycemia Treatment Stop: 02/16/20 10:14 Ondansetron HCl (Ondansetron Inj 2 Mg/Ml 2 Ml Vial) 4 mg IV Q6H PRN PRN Reason: Nausea Stop: 02/08/20 22:35 Zinc Sulfate (Zinc Sulfate 220 Mg Capsule) 220 mg PO QAM REPLACED BY [facility] Stop: 02/10/20 08:59 Last Admin: 01/17/20 13:04 Dose: 220 mg Documented by: PG Care Time/CCT Total # of Minutes Spent Total Time Spent with Patient: Total time spent is greater than 50% in coordination of care (as documented) at patient's floor/unit and/or counseling patient: Coding Level of Care Code 17768 Subseq Hosp Care Lvl 2 Diagnoses Pneumonia due to COVID-19 virus U07.1; J12.89 Hypoxia R09.02 Acute kidney injury superimposed on chronic kidney disease N17.9; N18.9 Thrombocytopenia D69.6
--- NOTE | 2020-01-18 07:54 | Procedure Note ---
Procedure Note Date of Service January 17, 2020 INTUBATION PROCEDURE NOTE: Provider: Elroy Juarez MD The patient had been transitioned to prone position due to persistent hypoxemic respiratory failure. Once he was proned, he continued to have issues with low oxygen saturations in the 60s and 70s. We identified that there was a significant leak. Return volumes on the ventilator were low. The cuff had been inflated and we were unable to reduce leak. I made the decision to rapidly reverse pronating and reintubate the patient. The patient was flipped with nursing attendance to the supine position. The existing endotracheal tube was removed. He had been paralyzed previously. We avoided [id number] ventilation and I proceeded directly to video laryngoscopy. There were copious secretions in the posterior oropharynx and supraglottic airways which would required extensive suctioning to clear the airways. Eventually I was able to obtain visualization of the glottis. He was very anterior. An 8 oh endotracheal tube with stylette was initially attempted to be passed however the tube continued to go posteriorly. There was significant soft tissue edema which made the intubation even more difficult. After repositioning the patient, I attempted to pass a bougie however this also went posteriorly. Eventually I was able to get an 8 oh endotracheal tube through the glottis. Capnography confirmed placement and the patient was reattached to the ventilator. The patient did experience transient oxygen desaturations below 50% during this procedure. He remained hemodynamically stable with normal heart rate and blood pressure throughout the course. This was a difficult procedure and I remained at the bedside until the patient's oxygen saturations returned into the 90% range. A total of 40 minutes in critical care time exclusive of procedures was spent in managing this Coding CPT Codes Resuscitation - Resuscitation: 58299 Endotracheal Intubation, emergency ([id number]) [facility] Procedure Codes (Charges) Resuscitation Resuscitation: 18251 Endotracheal Intubation, emergency (Please bill additional 45 minutes critical care time, [id number])
[2020-01-18] MEDS: MIDAZOLAM HCL 125 MG/250 ML BAG IV SCH ×2 (08:24→18:42)
[2020-01-18] MEDS: ZINC SULFATE 220 MG CAPSULE PO SCH (08:25)
[2020-01-18] MEDS: PANTOprazole 40 MG in SYRINGE 0 ML IV SCH ×2 (08:25→20:02)
[2020-01-18] MEDS: ENOXAPARIN INJ 40 MG/0.4 ML SYR SQ SCH (08:25)
[2020-01-18] MEDS: clonazePAM 0.5 MG TAB PO SCH ×2 (08:27→20:01)
[2020-01-18] MEDS: METHADONE HCL 5 MG TAB PO SCH ×2 (08:27→20:01)
[2020-01-18] MEDS: DEXAMETHASONE SOD PHOSPHATE 20 MG in DEXTROSE 5% 25 ML IV SCH (08:29)
[2020-01-18] MEDS: LACTULOSE SYRUP 20 GM/30 ML UDC PO SCH ×2 (10:30→20:02)
[2020-01-18] MEDS: DOCUSATE SODIUM SYRUP 100 MG/10 ML UDC PO SCH ×2 (10:31→20:01)
[2020-01-18] MEDS: SENNOSIDES 8.8 MG/5 ML UDC PO SCH ×2 (10:31→20:01)
[2020-01-18] MEDS: PEPTAMEN INTENSE VHP 1.0 CAL 1,000 ML BAG OG SCH (11:45)
--- NOTE | 2020-01-18 15:05 | Critical Care Progress Note ---
Date of Service January 18, 2020 Assessment & Plan (1) Pneumonia due to COVID-19 virus: Impression: 54-year-old male hospital day 9 for hypoxemic respiratory failure in the setting of novel coronavirus infection. Patient was intubated on January 12 and is currently vent day #6 24-hour events: Patient was flipped back supine yesterday morning. During the day he was followed and gradually had increasing oxygen requirements. Eventually was back on an FiO2 greater than 80% with oxygen saturations in the mid to high 80% range. Decision was made to prone him at 6 PM last evening. He was proned uneventfully however shortly thereafter his sats dropped into the 60% range and he appeared to have a significant cuff leak with low return volumes on the mechanical ventilator. Decision was made to rapidly reintubate him. He was reverted back to supine position and reintubated with some difficulty. Please see separate procedure notes. He did have some oxygen desaturations down below 50% associated with this reintubation. Once the tube was secured he was reattached mechanical ventilator and placed on inverse ratio ventilation. This has been much more successful in improving the patient's overall oxygenation index and this morning and today he has been down to an FiO2 of 0.6 or less with a PEEP of 15 on an I:E ratio of 1.5-1. Recommendations: 1. Neurologic: Continued issues with adequate sedation. Continue oral clonazepam and methadone to his regimen to try and decrease his overall requirement. Aggressive bowel regimen will be required. He is not required paralytics in the last 12 hours. He is at risk for anoxic encephalopathy given his episodes of hypoxemia but from a brainstem function appears to be intact. Advised family that we need to monitor him at this point time and see if his lungs can get better before making additional assessments regarding his neurological status. 2. Cardiovascular: Patient maintains hemodynamic stability. Continue to trend closely. Attempted diuresis yesterday with Bumex and was able to get him negative however serum creatinine increased. Will hold additional diuresis today and reassess tomorrow 3. Pulmonary: ARDS. Peak airway pressures are running in the 31-32 range. Maintain aggressive sedation hopefully without paralytics. We will try and target PaO2 greater than 55-60. Wean PEEP per ARDS protocols. Family was offered the opportunity to transfer the patient to a higher level of care to consider VV ECMO however the patient apparently expressed desire to not pursue aggressive measures prior to this to include tracheostomy, long-term intubation, feeding tube placement and family elected to keep him here. He appears to be responding to inverse ratio ventilation. We will continue inverse KEIKO ratio until we are able to get the FiO2 down below 50% and PEEP down below 10 at which point time we will switch him back to conventional ventilation. We will hold on proning him for now as he appears to be doing reasonably well. Continue dexamethasone for late-phase ARDS. He is at high risk of ventilator complications including pneumothorax but appears to be doing reasonably well currently. 4. ID: Blood cultures from admission no growth to date. 5. Renal: Renal function slightly worse today associated with diuresis yesterday. We will hold diuretics and reassess tomorrow. 6. GI: Initiate trophic tube feeding by nutrition. 7. Endo: We will closely monitor glucose levels now that he is on high-dose steroids. Sliding scale insulin will be initiated. 8. Heme-onc: Mild anemia. No evidence of acute blood loss. Hold transfusion for now. Previously noted thrombocytopenia has now corrected. Family will be updated again today. I met with them yesterday. They want to continue to give the patient a chance to recover. They understand the severity of his illness. He would be a difficult tracheostomy given his fused neck and prior tracheostomy however depending on his clinical course that may be the best option for him in the long-term. (2) Thrombocytopenia: (3) Acute kidney injury superimposed on chronic kidney disease: (4) Hypoxia: Admission and Anticipated Discharge Date Admission Date: January 09, 2020 Subjective Intubated and sedated Review of Systems Review of Systems: Unobtainable due to endotracheal tube Physical Exam Constitutional: + mechanically ventilated Neck: trachea midline, no thyromegaly Respiratory: normal respiratory effort, lungs clear to auscultation Cardiovascular: RRR, no murmur, no edema Gastrointestinal (Abdomen): normal bowel sounds, soft, nontender, no hepatosplenomegaly Musculoskeletal: Extremities: extremities normal to inspection Skin: no rashes, warm and dry Lymphatic: no cervical lymphadenopathy Results & Data Results & Data ([facility]) Vital Signs (Past 12 Hours) Vital Signs Temp Pulse Resp BP Pulse Ox 01/18/20 12:19 59 L 109/70 92 01/18/20 11:19 61 107/71 86 L 01/18/20 10:25 61 30 H 92 01/18/20 10:19 62 103/71 94 01/18/20 09:49 61 104/68 94 01/18/20 08:19 61 103/68 93 01/18/20 08:00 60 01/18/20 07:55 61 30 H 93 01/18/20 07:19 62 103/65 92 01/18/20 06:30 63 30 H 106/69 89 L 01/18/20 06:00 60 30 H 112/73 88 L 01/18/20 05:30 58 L 30 H 104/62 95 01/18/20 05:28 60 30 H 95 01/18/20 05:00 59 L 30 H 103/70 94 01/18/20 04:30 58 L 30 H 100/67 97 01/18/20 04:00 36.4 C L 58 L 30 H 101/66 97 01/18/20 03:36 58 L 30 H 99 01/18/20 03:30 58 L 30 H 107/71 97 01/18/20 03:00 58 L 30 H 99/68 L 99 I/O: -781 Laboratory Results 01/18/20 04:30 01/18/20 04:30 01/13/20 06:40 ABG pH 7.36 ABG pCO2 43 ABG pO2 54 L ABG HCO3 24 ABG O2 Saturation 86.0 L ABG Base Excess -1.5 Diagnostic Findings Chest x-ray from yesterday post reintubation showed lung toscano to be hazy without evidence of pneumothorax. Endotracheal tube was in good position. Coding Level of Care Code Critical Care 1st 30-74 mins Diagnoses Pneumonia due to COVID-19 virus U07.1; J12.89 Thrombocytopenia D69.6 Acute kidney injury superimposed on chronic kidney disease N17.9; N18.9 Hypoxia R09.02 Time Spent (min) 45 Comment 45 minutes critical care time managing life-threatening illness
[2020-01-18] MEDS: CISATRACURIUM BESYLATE 40 MG in 0.9 % SODIUM CHLORIDE 80 ML IV SCH ×2 (20:51→21:00)
[2020-01-19] MEDS: fentaNYL DRIP 1,250 MCG/250 ML BAG IV SCH ×5 (00:47→21:48)
[2020-01-19] MEDS: propofoL 1,000 MG/100 ML VIAL IV SCH ×10 (01:45→21:47)
[2020-01-19] MEDS: INSULIN ASPART 100 UNITS/ML 3 ML PEN SC SCH ×2 (02:18→06:34)
[2020-01-19 03:48] LABS: iSTAT Art Bld Gas pCO2 Correct 39 mmHg (35-46); iSTAT Art Bld Gas pH Corrected 7.399 (7.35-7.45); iSTAT Arterial Blood Gas HCO3 24 meg/L (19-24); iSTAT Arterial Blood Gas pCO2 39 mmHg (35-46); iSTAT Arterial Blood Gas pH 7.39 (7.35-7.45); iSTAT Arterial Blood Gas pO2 65 mmHg (80-95); iSTAT Arterial Blood Gas pO2 C 64; iSTAT Carbon Dioxide 25 mmol/L (24-31); iSTAT FiO2 50 %; iSTAT Hematocrit 31 % (42-52); iSTAT Hemoglobin 10.5 g/dl (14.0-18.0); iSTAT Potassium 4.2 mmol/L (3.3-5.0); iSTAT Site Art Line; iSTAT Sodium 137 mmol/L (135-144)
[2020-01-19 05:09] LABS: Hematocrit (blood only) 32.8 % (42-52); Hemoglobin 10.6 g/dL (14.0-18.0); Mean Corpuscular Hemoglobin 32.3 pg (25-34); Mean Corpuscular Hgb Conc 32.3 g/dL (32-36); Mean Platelet Volume 10.4 fL (7.4-10.4); Nucleated RBC # (auto) 0.06 K/uL (0-0); Nucleated RBC % (auto) 0.6 %; Platelet Count 219 K/uL (130-400); RDW Coefficient of Variation 14.7 % (11.5-14.5); RDW Standard Deviation 53.3 fL (36.4-46.3); Red Blood Count 3.28 M/uL (4.7-6.1); White Blood Count 10.74 K/uL (4.8-10.8)
[2020-01-19 05:31] LABS: ALC (manual) 0.47 K/uL (1.2-3.4); ANC (manual) 9.23 K/uL (1.4-6.5); Lymphocytes # (manual) 0.47 K/uL (1.2-3.4); Lymphocytes % (manual) 4.4 %; Metamyelocytes # (manual) 0.47 K/uL (0-0); Metamyelocytes % (manual) 4.4 %; Monocytes % (manual) 0.9 %; Myelocytes # (manual) 0.47 K/uL (0-0); Myelocytes % (manual) 4.4 %; Neutrophils # (manual) 9.23 K/uL (1.4-6.5); Neutrophils % (manual) 85.9 %; RBC Morphology Unremarkable
[2020-01-19 05:37] LABS: BUN Creatinine Ratio 35.5 (10-20); Creatinine Clr Calc Pharmacy 66.6 ml/min; Est GFR (African American) 55.8; Est GFR (Non-African American) 48.2; Magnesium 2.9 mg/dl (1.8-2.4); Phosphorus 4.1 mg/dl (2.5-4.9); Potassium 4.1 mmol/L (3.5-5.1)
[2020-01-19] MEDS: MIDAZOLAM HCL 125 MG/250 ML BAG IV SCH ×2 (06:15→15:58)
--- NOTE | 2020-01-19 08:00 | Critical Care Progress Note ---
Date of Service January 19, 2020 Assessment & Plan (1) Pneumonia due to COVID-19 virus: Impression: 54-year-old male hospital day 10 for hypoxemic respiratory failure in the setting of novel coronavirus infection. Patient was intubated on January 12 and is currently vent day #7 24-hour events: Patient did well yesterday and we were able to wean his FiO2 down to 50% with a PEEP of 15. Around 8:00 this morning the patient had an oxygen desaturation. He had previously been in the mid 90% range but dropped into the 80% range. Chest x-ray was performed which revealed low lung volumes. I assessed the patient at bedside. He appeared to be having some paradoxical breathing and an additional dose of 10 mg vecuronium was administered. His peak airway pressures were extremely high at 50 however his lung compliance did not appear significantly changed. Albuterol was administered via the endotracheal tube and the patient was bagged for about 5 minutes with a Peep valve set at 18. Prior to this we attempted a recruitment maneuver but this was unsuccessful. With the albuterol and paralytics, the patient's oxygen saturations improved up into the mid to high 90% range and we were able to wean his FiO2 and return him to the mechanical ventilator. Peak airway pressures were significantly decreased at this time and plateaus were stable. I did decrease his tidal volume down to 320 which is about 4 cc/kg ideal body weight given persistent elevation in plateau pressures Recommendations: 1. Neurologic: Sedation better. Continue oral clonazepam and methadone to try and decrease his overall requirement. Continue propofol, fentanyl, and Versed. Aggressive bowel regimen will be required. He is at risk for anoxic encephalopathy given his episodes of hypoxemia but from a brainstem function appears to be intact. Advised family that we need to monitor him at this point time and see if his lungs can get better before making additional assessments regarding his neurological status. 2. Cardiovascular: Patient maintains hemodynamic stability. Continue to trend closely. Attempted diuresis yesterday with Bumex and was able to get him negative however serum creatinine increased. Will hold additional diuresis today and reassess tomorrow 3. Pulmonary: Current vent settings are assist control/inverse ratio ventilation with an I:E ratio 1.5:1. Tidal volume 320, respiratory rate 30, PEEP 15 and FiO2 0.8. AB.39/39/65/24. P plateau 30 with peak airway pressures about 32-35 Maintain aggressive sedation hopefully without paralytics and hold sedation break for now. We will try and target PaO2 greater than 55- 60. Wean PEEP per ARDS protocols. Family was offered the opportunity to transfer the patient to a higher level of care to consider VV ECMO however the patient apparently expressed desire to not pursue aggressive measures prior to this to include tracheostomy, long-term intubation, feeding tube placement and family elected to keep him here. He appears to be responding to inverse ratio ventilation. We will continue inverse I:E ratio until we are able to get the FiO2 down below 50% and PEEP down below 10 at which point time we will switch him back to conventional ventilation. We will hold on proning him for now as he appears to be doing reasonably well. Continue dexamethasone for late-phase ARDS . He is at high risk of ventilator complications including pneumothorax but appears to be doing reasonably well currently. 4. ID: Blood cultures from admission no growth to date. 5. Renal: SCr down to 1.59 today. Will give additional bumex and follow. Mild hyponatremia. Continue to trend. At risk for SIADH. 6. GI: Continue tube feeding by nutrition. Ok to advance to target as tolerated. PPI for proph 7. Endo: We will closely monitor glucose levels now that he is on high-dose ozzy roids. Sliding scale insulin will be continued. 8. Heme-onc: Mild anemia. No evidence of acute blood loss. Hold transfusion for now. Previously noted thrombocytopenia has now corrected. Lovenox for DVT proph 9. Lines: L IJ: 01/12 - line migrating on CXR. will check ports for draw. May need to rewire and replace. ETT changed 01/16 homa WU Art line: 01/12 Daughter updated yesterday and will call today. They understand the severity of his illness. He would be a difficult tracheostomy given his fused neck and prior tracheostomy however depending on his clinical course that may be the best option for him in the long-term. Will reassess on vent day #10. No CPR but continue MV and attempts at weaning. (2) Thrombocytopenia: (3) Acute kidney injury superimposed on chronic kidney disease: (4) Hypoxia: Admission and Anticipated Discharge Date Admission Date: January 09, 2020 Subjective intubated and sedated. Review of Systems Review of Systems: Unobtainable due to endotracheal tube Physical Exam Constitutional: + mechanically ventilated Neck: trachea midline, no thyromegaly Respiratory: normal respiratory effort, lungs clear to auscultation Cardiovascular: RRR, no murmur, no edema Gastrointestinal (Abdomen): normal bowel sounds, soft, nontender, no hepatosplenomegaly Musculoskeletal: Extremities: extremities normal to inspection Skin: no rashes, warm and dry Lymphatic: no cervical lymphadenopathy Results & Data Results & Data ([facility]) Vital Signs (Past 12 Hours) Vital Signs Temp Pulse Resp BP Pulse Ox 01/19/20 03:30 55 L 30 H 92 01/18/20 23:25 56 L 30 H 93 01/18/20 22:00 36.5 C 57 L 91 01/18/20 21:49 36.5 C 57 L 130/82 92 01/18/20 21:19 36.5 C 57 L 126/83 89 L 01/18/20 21:00 36.5 C 58 L 88 L 01/18/20 20:49 36.5 C 56 L 131/81 88 L 01/18/20 20:19 36.5 C 56 L 127/86 01/18/20 20:00 56 L 92 Laboratory Results 01/19/20 04:35 01/19/20 04:35 Diagnostic Findings be somewhat withdrawn compared to films from 01/15Chest x-ray from today was independently reviewed. The tube is at the mehrdad. The left internal jugular catheter appears to and is now just below the clavicle. coarse markings throughout. Lung volumes are low with Basilar opacities persist Coding Level of Care Code Critical Care 1st 30-74 mins Diagnoses Pneumonia due to COVID-19 virus U07.1; J12.89 Thrombocytopenia D69.6 Acute kidney injury superimposed on chronic kidney disease N17.9; N18.9 Hypoxia R09.02
[2020-01-19] MEDS ORDERED: ALBUTEROL 0.083% NEBU SOLN 3 ML VIAL ONE (08:10)
[2020-01-19] MEDS ORDERED: VECURONIUM BROMIDE 10 MG VIAL IV ONE ×2 (08:16→10:41)
--- NOTE | 2020-01-19 08:16 | XRay Report ---
XR chest 1V portable HISTORY: Respiratory failure. COMPARISON: Chest 01/17/2020. FINDINGS: Endotracheal tube terminates at the mehrdad. This be pulled back by approximately 2 to 3 cm. Nasogastric tube terminates below the diaphragm. The tip is not included in the study. Left jugular central venous catheter terminates in left brachiocephalic vein, unchanged. No pneumothorax. Bibasila r densities persist. Mild diffuse interstitial thickening and small bilateral pleural effusions are a gain noted. Patchy left midlung zone airspace opacity. IMPRESSION: 1. The endotracheal tube terminates at the mehrdad. This should be pulled back by approximately 2 to 3 cm. 2. Slight progression of the pulmonary edema and small bilateral pleural effusions. 3. Left midlung zone airspace opacity has also progressed. 4. These findings were called/faxed to the referring physician following dictation. ACT 112: Negative or not required by law. Electronically signed by: Angel Granado M.D. 01/19/2020 8:14 AM
[2020-01-19] MEDS: METHADONE HCL 5 MG TAB PO SCH ×2 (09:09→23:43)
[2020-01-19] MEDS: DEXAMETHASONE SOD PHOSPHATE 20 MG in DEXTROSE 5% 25 ML IV SCH (09:09)
[2020-01-19] MEDS: PANTOprazole 40 MG in SYRINGE 0 ML IV SCH ×2 (09:09→21:48)
[2020-01-19] MEDS: ENOXAPARIN INJ 40 MG/0.4 ML SYR SQ SCH (09:10)
[2020-01-19] MEDS: SENNOSIDES 8.8 MG/5 ML UDC PO SCH ×2 (09:10→21:47)
[2020-01-19] MEDS: DOCUSATE SODIUM SYRUP 100 MG/10 ML UDC PO SCH ×2 (09:10→21:47)
[2020-01-19] MEDS: LACTULOSE SYRUP 20 GM/30 ML UDC PO SCH ×2 (09:10→21:47)
[2020-01-19] MEDS: ZINC SULFATE 220 MG CAPSULE PO SCH (09:11)
[2020-01-19] MEDS ORDERED: BUMETANIDE 2 MG in SYRINGE 0 ML IV ONE (10:30)
[2020-01-19] MEDS ORDERED: VECURONIUM BROMIDE 10 MG VIAL IV PRN (10:59)
[2020-01-19] MEDS: clonazePAM 0.5 MG TAB PO SCH ×2 (11:12→21:48)
[2020-01-19] MEDS: ALBUT/IPRATROP 3MG/0.5MG NEB 3 ML VIAL NEB SCH ×4 (11:16→23:33)
[2020-01-19] MEDS ORDERED: GLUCOSE 40% GEL 15 GM TUBE PO PRN (12:00)
[2020-01-19] MEDS ORDERED: DEXTROSE 50% 50 ML SYRINGE IV PRN (12:00)
[2020-01-19] MEDS ORDERED: GLUCOSE 10 TABS/TUBE PO PRN (12:00)
[2020-01-19] MEDS ORDERED: CARBOHYDRATES FOR HYPOGLYCEMIA PO PRN (12:00)
[2020-01-19] MEDS ORDERED: GLUCAGON FOR INJ 1 MG VIAL IM PRN (12:00)
[2020-01-19] MEDS: INSULIN REGULAR 250 UNITS in SODIUM CHLORIDE 0.9% 247.5 ML IV SCH (12:27)
[2020-01-19] MEDS: DEXTROSE 10% 1,000 ML IV SCH (12:27)
[2020-01-19] MEDS ORDERED: CISATRACURIUM BESYLATE 40 MG in 0.9 % SODIUM CHLORIDE 80 ML IV SCH (13:30)
[2020-01-19] MEDS ORDERED: Nursing to Pharmacy Communication SCH (13:30)
[2020-01-19] MEDS ORDERED: CISATRACURIUM BOLUS FROM BAG IV ONE (13:30)
[2020-01-19] MEDS: CISATRACURIUM BESYLATE 40 MG in 0.9 % SODIUM CHLORIDE 80 ML IV SCH ×2 (13:34→21:47)
--- NOTE | 2020-01-19 17:26 | Hospitalist Progress Note ---
Date of Service January 19, 2020 Assessment & Plan (1) Pneumonia due to COVID-19 virus: Pneumonia due to COVID-19 virus with hypoxia-pt declined and was intubated 01/12, with maximum lung protective ventilation remains alive on maximal support, desaturating today to 70-80s, using high PEEP, more sedations Decadron 6 mg IV daily x10 days Convalescent plasma x1, administered Remdesivir IV per protocol Previoiusly the Patient significantly decompensated throughout the day on 01/13/2020. prior hospitalist had conversation with [facility], Dr. Morales, about the possibility of ECMO therapy. His hypoxia does make transportation significantly risky for him to succumb to his hypoxic issues while traveling. There was discussion about having an emergent team come to begin ECMO in route. [facility] does not have such a team and [place] does not have a team either. Dr. Juarez is in contact with family about plan, prognosis etc he is DNR if he would have cardiac arrest previously the pt did have a prolonged stay at [facility] due to sepsis with osteo of cervical spine, this resulted in tracheostomy and prolonged rehab, that situation is what influenced family decision (2) Hypoxia: profound hypoxia, very difficult to venilate has been prone several times, evening of 01/16 he desaturated to 80's then required emergent re-intubation doing better today with reverse ratio with I:E 1.5 to 1, able to decrease FiO2 and PEEP (3) Acute kidney injury superimposed on chronic kidney disease: resolved (4) Thrombocytopenia: Follow with serial laboratories Admission and Anticipated Discharge Date Admission Date: January 09, 2020 Subjective Per nursing, pt continues to decline. Ongoing vent support with inability to wean. States that daughter has stated pt had a trach in the past and has stated he would never want this again. Review of Systems Review of Systems: Unable to obtain Physical Exam Constitutional: WD/WN, vitals as above (comfortable on vent) Respiratory: no respiratory distress Results & Data Results & Data ([facility]) Vital Signs (Past 12 Hours) Vital Signs Temp Pulse Resp BP Pulse Ox 01/19/20 16:12 86 30 H 95 01/19/20 15:20 36.1 C L 92 H 153/89 H 95 01/19/20 15:00 36.1 C L 91 H 95 01/19/20 14:50 36.1 C L 89 154/87 H 96 01/19/20 14:20 36.1 C L 89 157/91 H 95 01/19/20 14:00 36.1 C L 81 93 01/19/20 13:54 83 30 H 92 01/19/20 13:50 36.1 C L 80 143/90 H 91 01/19/20 13:20 36.0 C L 80 151/93 H 88 L 01/19/20 13:00 36.0 C L 85 87 L 01/19/20 12:50 36.0 C L 78 146/88 H 87 L 01/19/20 12:20 35.9 C L 76 149/86 H 89 L 01/19/20 12:00 35.9 C L 79 150/89 H 91 01/19/20 11:51 35.9 C L 83 91 01/19/20 11:50 35.9 C L 81 150/89 H 90 01/19/20 11:20 35.9 C L 82 133/72 91 01/19/20 11:00 36.0 C L 86 93 01/19/20 10:50 36.0 C L 88 116/67 94 01/19/20 10:45 30 H 01/19/20 10:20 36.0 C L 96 H 157/82 H 86 L 01/19/20 10:00 36.1 C L 85 89 L 01/19/20 09:50 36.1 C L 84 152/85 H 90 01/19/20 09:20 36.1 C L 77 146/86 H 96 01/19/20 09:00 36.2 C L 73 95 01/19/20 08:50 36.3 C L 74 145/77 H 95 01/19/20 08:19 36.5 C 61 147/89 H 94 01/19/20 08:00 36.5 C 63 89 L 01/19/20 07:50 36.5 C 63 136/89 85 L 01/19/20 07:19 36.5 C 61 136/83 88 L 01/19/20 07:15 30 H 01/19/20 07:00 36.5 C 56 L 92 01/19/20 06:49 36.5 C 58 L 129/81 92 01/19/20 06:19 36.5 C 56 L 140/83 94 01/19/20 06:00 36.5 C 54 L 92 01/19/20 05:49 36.5 C 56 L 130/79 91 PG Care Time/CCT Total # of Minutes Spent Total Time Spent with Patient: Total time spent is greater than 50% in coordination of care (as documented) at patient's floor/unit and/or counseling patient: Coding Level of Care Code 09558 Subseq Hosp Care Lvl 2 Diagnoses Pneumonia due to COVID-19 virus U07.1; J12.89 Hypoxia R09.02 Acute kidney injury superimposed on chronic kidney disease N17.9; N18.9 Thrombocytopenia D69.6
[2020-01-19 17:51] LABS: BUN Creatinine Ratio 30.1 (10-20); Calcium 7.9 mg/dl (8.5-10.1); Creatinine Clr Calc Pharmacy 58.8 ml/min; Est GFR (African American) 47.1; Est GFR (Non-African American) 40.6; Potassium 3.8 mmol/L (3.5-5.1)
[2020-01-19 17:54] LABS: Albumin Globulin Ratio 0.7 (0.9-2); Bilirubin,Total 0.4 mg/dl (0.2-1); Globulin 4.6 gm/dl (2.5-4.0); Total Protein 7.6 gm/dl (6.4-8.2)
[2020-01-20] MEDS: fentaNYL DRIP 1,250 MCG/250 ML BAG IV SCH ×4 (00:24→21:07)
[2020-01-20] MEDS: propofoL 1,000 MG/100 ML VIAL IV SCH ×6 (00:24→22:08)
[2020-01-20] MEDS: CISATRACURIUM BESYLATE 40 MG in 0.9 % SODIUM CHLORIDE 80 ML IV SCH ×7 (00:27→21:56)
[2020-01-20] MEDS: MIDAZOLAM HCL 125 MG/250 ML BAG IV SCH ×3 (02:41→23:42)
[2020-01-20 02:58] LABS: iSTAT Art Bld Gas pCO2 Correct 53 mmHg (35-46); iSTAT Art Bld Gas pH Corrected 7.271 (7.35-7.45); iSTAT Arterial Blood Gas HCO3 25 meg/L (19-24); iSTAT Arterial Blood Gas pCO2 55 mmHg (35-46); iSTAT Arterial Blood Gas pH 7.26 (7.35-7.45); iSTAT Arterial Blood Gas pO2 73 mmHg (80-95); iSTAT Arterial Blood Gas pO2 C 69; iSTAT Carbon Dioxide 26 mmol/L (24-31); iSTAT FiO2 50 %; iSTAT Hematocrit 33 % (42-52); iSTAT Hemoglobin 11.2 g/dl (14.0-18.0); iSTAT Potassium 3.7 mmol/L (3.3-5.0); iSTAT Site Art Line; iSTAT Sodium 138 mmol/L (135-144)
[2020-01-20] MEDS: ALBUT/IPRATROP 3MG/0.5MG NEB 3 ML VIAL NEB SCH ×6 (03:47→22:25)
[2020-01-20 04:20] LABS: Hematocrit (blood only) 33.5 % (42-52); Hemoglobin 11.1 g/dL (14.0-18.0); Mean Corpuscular Hemoglobin 33.4 pg (25-34); Mean Corpuscular Hgb Conc 33.1 g/dL (32-36); Mean Corpuscular Volume 100.9 fL (80-100); Nucleated RBC # (auto) 0.13 K/uL (0-0); Platelet Count 180 K/uL (130-400); RDW Coefficient of Variation 14.7 % (11.5-14.5); RDW Standard Deviation 53.8 fL (36.4-46.3); Red Blood Count 3.32 M/uL (4.7-6.1); White Blood Count 13.82 K/uL (4.8-10.8)
[2020-01-20 04:39] LABS: BUN Creatinine Ratio 33.1 (10-20); Calcium 7.9 mg/dl (8.5-10.1); Est GFR (African American) 52.2; Est GFR (Non-African American) 45.1; Magnesium 2.9 mg/dl (1.8-2.4); Potassium 3.7 mmol/L (3.5-5.1)
[2020-01-20 04:44] LABS: Phosphorus 4.8 mg/dl (2.5-4.9)
[2020-01-20 05:04] LABS: ALC (manual) 0.59 K/uL (1.2-3.4); ANC (manual) 12.15 K/uL (1.4-6.5); Lymphocytes # (manual) 0.59 K/uL (1.2-3.4); Lymphocytes % (manual) 4.3 %; Metamyelocytes # (manual) 0.23 K/uL (0-0); Metamyelocytes % (manual) 1.7 %; Monocytes # (manual) 0.48 K/uL (0.11-0.59); Monocytes % (manual) 3.5 %; Myelocytes # (manual) 0.36 K/uL (0-0); Myelocytes % (manual) 2.6 %; Neutrophils # (manual) 12.15 K/uL (1.4-6.5); Neutrophils % (manual) 87.9 %
[2020-01-20] MEDS ORDERED: POTASSIUM CHLORIDE / WTR 20 MEQ/100 ML PLCT IV ONE (05:11)
--- NOTE | 2020-01-20 08:09 | XRay Report ---
XR chest 1V portable HISTORY: 54 years-old Male resp failure acute respiratory failure COMPARISON: Chest radiograph 01/19/2020 TECHNIQUE: Portable AP view the chest FINDINGS: Endotracheal tube overlies the midline, 1.8 cm superior to the mehrdad. Left IJ central venous cathete r distal tip terminates in the expected location of the inferior left brachiocephalic vein, unchanged . Numerous telemetry leads overlie the chest. Enteric tube courses below the diaphragm outside the fi eld-of-view. Cardiac mediastinal and hilar silhouettes are unchanged. No pneumothorax. Small pleural effusions. Interstitial coarsening with pulmonary vascular congestion. Persistent bibasilar opacities . Mildly improved aeration of the left lung base. Degenerative changes of the shoulders and spine. Ce rvical spinal fusion hardware. IMPRESSION: 1. The endotracheal tube has been slightly retracted, now terminating 1.8 cm superior to the mehrdad. Additional lines and tubes as above 2. Stable pulmonary edema with small pleural effusions. 3. Persistent bibasilar opacities with mildly improved aeration of the left lung base.. ACT 112: Negative or not required by law. The above report was generated using voice recognition software. It may contain grammatical, syntax o r spelling errors. Electronically signed by: Cabrera Mcgowan M.D. 01/20/2020 8:07 AM
[2020-01-20] MEDS: PANTOprazole 40 MG in SYRINGE 0 ML IV SCH ×2 (08:35→21:07)
[2020-01-20] MEDS: DEXAMETHASONE SOD PHOSPHATE 20 MG in DEXTROSE 5% 25 ML IV SCH (08:35)
[2020-01-20] MEDS: LACTULOSE SYRUP 20 GM/30 ML UDC PO SCH ×2 (08:36→21:01)
[2020-01-20] MEDS: ENOXAPARIN INJ 40 MG/0.4 ML SYR SQ SCH (08:36)
[2020-01-20] MEDS: ZINC SULFATE 220 MG CAPSULE PO SCH (08:36)
[2020-01-20] MEDS: DOCUSATE SODIUM SYRUP 100 MG/10 ML UDC PO SCH ×2 (08:36→21:01)
[2020-01-20] MEDS: SENNOSIDES 8.8 MG/5 ML UDC PO SCH ×2 (08:36→21:01)
[2020-01-20] MEDS: clonazePAM 0.5 MG TAB PO SCH ×2 (08:43→20:59)
[2020-01-20] MEDS: METHADONE HCL 5 MG TAB PO SCH ×2 (08:43→20:59)
--- NOTE | 2020-01-20 10:28 | Critical Care Progress Note ---
Date of Service January 20, 2020 Assessment & Plan (1) Pneumonia due to COVID-19 virus: Impression: 54-year-old male hospital day 11 for hypoxemic respiratory failure in the setting of novel coronavirus infection. Patient was intubated on January 12 and is currently vent day #8 24-hour events: Patient did reasonably well over the last 24 hours. Un fortunately we had to restart paralytics as the patient was becoming increasingly dyssynchronous with the ventilator. We have been able to wean his FiO2 down to 0.5 and PEEP at 15 with oxygen saturations in the low 90s Recommendations: 1. Neurologic: Sedation better. Continue oral clonazepam and methadone to try and decrease his overall requirement. Continue propofol, fentanyl, and Versed. Was getting by with intermittent paralytics but had to restart cis atracurium. Continue to monitor [id number]. The patient is at high risk for critical illness polyneuropathy and myopathy, however there are no alternatives. Aggressive bowel regimen will be required. He is at risk for anoxic encephalopathy given his episodes of hypoxemia but from a brainstem function appears to be intact. Advised family that we need to monitor him at this point time and see if his lungs can get better before making additional assessments regarding his neurological status. 2. Cardiovascular: Patient maintains hemodynamic stability. Continue to trend closely. Continue attempts at diuresis given the appearance of bilateral p leural effusions but will follow kidney function closely. 3. Pulmonary: Current vent settings are assist control/inverse ratio ventilation with an I:E ratio 1.5:1. Tidal volume 320, respiratory rate 30, PEEP 15 and FiO2 0.5. AB.2 6/55/73/25. P plateau 26 with peak airway pressures about 31. Compliance appears significantly improved although ventilation is slightly worse today. We will try and target PaO2 greater than 55-60. Wean PEEP per ARDS protocols. Daughter was updated yesterday. She states that the patient had a very terrance course recovering from his prior illness including tracheostomy and she is not sure that he would be willing to undergo another round of aggressive rehabilitation. I advised them that tracheostomy would likely be recommended as I do not anticipate this to be a short course. They again are not sure that he would want that. They are meeting amongst themselves and will get back to us once they formalize a decision. Family was offered the opportunity to transfer the patient to a higher level of care to consider VV ECMO however the patient apparently expressed desire to not pursue aggressive measures prior to this to include tracheostomy, long-term intubation, feeding tube placement and family elected to keep him here. He appears to be responding to inverse ratio ventilation. We will continue inverse I:E ratio until we are able to get the FiO2 down below 50% and PEEP down below 10 at which point time we will switch him back to conventional ventilation. We will hold on proning him for now as he appears to be doing reasonably well and proning was difficult with his fused neck. Continue dexamethasone for late-phase ARDS. He is at high risk of ventilator complications including pneumothorax but appears to be stable currently. 4. ID: Blood cultures from admission no growth to date. White count increased today. The patient is at risk for secondary infection. Follow fever curve 5. Renal: SCr down to 1.59 today. Will give additional bumex and follow. Hyponatremia has now corrected. Continue to follow. 6. GI: Continue tube feeding by nutrition. Ok to advance to target as tolerated. PPI for proph 7. Endo: The patient did have hypertriglyceridemia likely associated with propofol. We have initiated him on an dextrose and insulin infusion and will recheck triglycerides today. Unfortunately I do not see an alternative to propofol at this point time 8. Heme-onc: Mild anemia. No evidence of acute blood loss. Hold transfusion for now. Previously noted thrombocytopenia has now corrected. Lovenox for DVT proph 9. Lines: L IJ: 01/12 - line migrating on CXR. will check ports for draw. May need to rewire and replace. ETT changed 01/16 homa Leo FT Art line: 01/12 Patient remains critically ill. He is at risk of multiorgan system dysfunction and . Family will be updated by phone today (2) Thrombocytopenia: (3) Acute kidney injury superimposed on chronic kidney disease: (4) Hypoxia: Admission and Anticipated Discharge Date Admission Date: January 09, 2020 Subjective Intubated sedated and paralyzed Review of Systems Review of Systems: Unobtainable due to endotracheal tube Physical Exam Constitutional: + mechanically ventilated Neck: trachea midline, no thyromegaly Respiratory: normal respiratory effort, lungs clear to auscultation Cardiovascular: RRR, no murmur, no edema Gastrointestinal (Abdomen): normal bowel sounds, soft, nontender, no hepatosplenomegaly Musculoskeletal: Extremities: extremities normal to inspection Skin: no rashes, warm and dry Lymphatic: no cervical lymphadenopathy Results & Data Results & Data ([facility]) Vital Signs (Past 12 Hours) Vital Signs Temp Pulse Resp BP Pulse Ox 01/20/20 07:59 87 30 H 91 01/20/20 06:00 36.3 C L 95 H 93 01/20/20 05:50 36.3 C L 93 H 122/75 93 01/20/20 05:20 36.2 C L 94 H 121/75 93 01/20/20 05:00 36.2 C L 92 H 93 01/20/20 04:50 36.1 C L 94 H 122/75 93 01/20/20 04:20 36.1 C L 101 H 126/69 93 01/20/20 04:00 36.1 C L 87 138/63 95 01/20/20 03:50 36.0 C L 84 116/71 94 01/20/20 03:20 36.0 C L 88 118/72 94 01/20/20 03:00 35.9 C L 89 94 01/20/20 02:55 90 30 H 93 01/20/20 02:50 35.9 C L 90 122/71 93 01/20/20 02:20 35.8 C L 91 H 115/71 94 01/20/20 02:00 35.8 C L 90 94 01/20/20 01:50 35.8 C L 90 117/72 94 01/20/20 01:20 35.7 C L 92 H 119/73 93 01/20/20 01:00 35.7 C L 91 H 93 01/20/20 00:50 35.7 C L 94 H 126/75 93 01/20/20 00:20 35.6 C L 99 H 128/73 93 01/20/20 00:00 35.6 C L 99 H 142/62 H 93 01/19/20 23:50 35.6 C L 101 H 126/75 93 01/19/20 23:25 96 H 30 H 93 01/19/20 23:20 35.7 C L 96 H 131/74 94 01/19/20 23:00 35.7 C L 92 H 94 01/19/20 22:50 35.7 C L 94 H 125/79 01/19/20 22:20 36.0 C L 99 H 154/89 H Laboratory Results 01/20/20 04:09 01/20/20 04:09 Diagnostic Findings Chest x-ray from today was independently reviewed. Endotracheal tube in good position. Enteric feeding tube extending off the bottom of the film. The IJ remains in the brachiocephalic vein with position unchanged from prior. Lung toscano are slightly better aerated with what appears to be small bilateral pleural effusions. Persistent airspace opacities identified Coding Level of Care Code Critical Care 1st 30-74 mins Diagnoses Pneumonia due to COVID-19 virus U07.1; J12.89 Thrombocytopenia D69.6 Acute kidney injury superimposed on chronic kidney disease N17.9; N18.9 Hypoxia R09.02 Time Spent (min) 45
[2020-01-20] MEDS ORDERED: BUMETANIDE 2 MG in SYRINGE 0 ML IV ONE (10:30)
[2020-01-20] MEDS: INSULIN REGULAR 250 UNITS in SODIUM CHLORIDE 0.9% 247.5 ML IV SCH (13:27)
[2020-01-20] MEDS: DEXTROSE 10% 1,000 ML IV SCH (14:16)
--- NOTE | 2020-01-20 15:05 | Hospitalist Progress Note ---
Date of Service January 20, 2020 Assessment & Plan (1) Pneumonia due to COVID-19 virus: Pneumonia due to COVID-19 virus with hypoxia-pt declined and was intubated 01/12, with maximum lung protective ventilation remains alive on maximal support, desaturating today to 70-80s, using high PEEP, more sedations Decadron 6 mg IV daily x10 days Convalescent plasma x1, administered Remdesivir IV per protocol Previoiusly the Patient significantly decompensated throughout the day on 01/13/2020. prior hospitalist had conversation with [facility], Dr. Morales, about the possibility of ECMO therapy. His hypoxia does make transportation significantly risky for him to succumb to his hypoxic issues while traveling. There was discussion about having an emergent team come to begin ECMO in route. [facility] does not have such a team and [place] does not have a team either. Dr. Juarez is in contact with family about plan, prognosis etc he is DNR if he would have cardiac arrest previously the pt did have a prolonged stay at [facility] due to sepsis with osteo of cervical spine, this resulted in tracheostomy and prolonged rehab, that situation is what influenced family decision (2) Hypoxia: profound hypoxia, very difficult to venilate has been prone several times, evening of 01/16 he desaturated to 80's then required emergent re-intubation doing better today with reverse ratio with I:E 1.5 to 1, able to decrease FiO2 and PEEP (3) Acute kidney injury superimposed on chronic kidney disease: resolved (4) Thrombocytopenia: Follow with serial laboratories Admission and Anticipated Discharge Date Admission Date: January 09, 2020 Subjective Pt is intubated and sedated. Pt's nurse was off the floor, but no new concerns from nurse covering. Planning for a family meeting with digital content specialist today. Review of Systems Review of Systems: Unable to obtain Physical Exam Constitutional: WD/WN, vitals as above (comfortable on vent) Respiratory: no respiratory distress Results & Data Results & Data ([facility]) Vital Signs (Past 12 Hours) Vital Signs Temp Pulse Resp BP Pulse Ox 01/20/20 14:00 36.1 C L 90 88 L 01/20/20 13:50 36.1 C L 91 H 122/70 88 L 01/20/20 13:20 36.1 C L 93 H 126/71 87 L 01/20/20 12:50 36.1 C L 95 H 123/69 86 L 01/20/20 12:20 36.0 C L 100 H 128/71 87 L 01/20/20 12:00 36.0 C L 102 H 87 L 01/20/20 11:50 36.0 C L 98 H 132/66 87 L 01/20/20 11:28 84 30 H 90 01/20/20 11:21 36.0 C L 84 90 01/20/20 11:20 36.0 C L 85 114/67 90 01/20/20 11:00 36.1 C L 87 90 01/20/20 10:50 36.1 C L 89 108/64 90 01/20/20 10:20 36.2 C L 87 112/64 90 01/20/20 10:00 36.3 C L 94 H 91 01/20/20 09:50 36.3 C L 91 H 130/77 91 01/20/20 09:20 36.4 C L 98 H 135/83 91 01/20/20 09:00 36.4 C L 100 H 90 01/20/20 08:50 36.4 C L 100 H 119/71 90 01/20/20 08:20 36.4 C L 88 117/72 92 01/20/20 08:00 36.4 C L 86 92 01/20/20 07:59 87 30 H 91 01/20/20 07:50 36.4 C L 87 113/75 92 01/20/20 07:20 36.4 C L 89 118/74 91 01/20/20 07:00 36.3 C L 90 92 01/20/20 06:00 36.3 C L 95 H 93 01/20/20 05:50 36.3 C L 93 H 122/75 93 01/20/20 05:20 36.2 C L 94 H 121/75 93 01/20/20 05:00 36.2 C L 92 H 93 01/20/20 04:50 36.1 C L 94 H 122/75 93 01/20/20 04:20 36.1 C L 101 H 126/69 93 01/20/20 04:00 36.1 C L 87 138/63 95 01/20/20 03:50 36.0 C L 84 116/71 94 01/20/20 03:20 36.0 C L 88 118/72 94 PG Care Time/CCT Total # of Minutes Spent Total Time Spent with Patient: Total time spent is greater than 50% in coordination of care (as documented) at patient's floor/unit and/or counseling patient: Coding Level of Care Code 00655 Subseq Hosp Care Lvl 2 Diagnoses Pneumonia due to COVID-19 virus U07.1; J12.89 Hypoxia R09.02 Acute kidney injury superimposed on chronic kidney disease N17.9; N18.9 Thrombocytopenia D69.6
[2020-01-20] MEDS: PEPTAMEN INTENSE VHP 1.0 CAL 1,000 ML BAG OG SCH (21:56)
[2020-01-21] MEDS: propofoL 1,000 MG/100 ML VIAL IV SCH ×5 (02:38→23:09)
[2020-01-21] MEDS: CISATRACURIUM BESYLATE 40 MG in 0.9 % SODIUM CHLORIDE 80 ML IV SCH ×9 (02:39→21:36)
[2020-01-21 03:05] LABS: iSTAT Art Bld Gas pCO2 Correct 57 mmHg (35-46); iSTAT Art Bld Gas pH Corrected 7.295 (7.35-7.45); iSTAT Arterial Blood Gas HCO3 28 meg/L (19-24); iSTAT Arterial Blood Gas pCO2 57 mmHg (35-46); iSTAT Arterial Blood Gas pH 7.29 (7.35-7.45); iSTAT Arterial Blood Gas pO2 92 mmHg (80-95); iSTAT Arterial Blood Gas pO2 C 92; iSTAT Carbon Dioxide 29 mmol/L (24-31); iSTAT FiO2 50 %; iSTAT Hematocrit 31 % (42-52); iSTAT Hemoglobin 10.5 g/dl (14.0-18.0); iSTAT Potassium 4.7 mmol/L (3.3-5.0); iSTAT Site Art Line; iSTAT Sodium 138 mmol/L (135-144)
[2020-01-21] MEDS: ALBUT/IPRATROP 3MG/0.5MG NEB 3 ML VIAL NEB SCH ×6 (03:07→23:37)
[2020-01-21] MEDS: fentaNYL DRIP 1,250 MCG/250 ML BAG IV SCH ×7 (04:00→23:08)
[2020-01-21] MEDS: LACTULOSE SYRUP 20 GM/30 ML UDC PO SCH ×2 (07:27→20:06)
[2020-01-21] MEDS: ZINC SULFATE 220 MG CAPSULE PO SCH (07:30)
[2020-01-21] MEDS: SENNOSIDES 8.8 MG/5 ML UDC PO SCH ×2 (07:30→20:07)
[2020-01-21] MEDS: DOCUSATE SODIUM SYRUP 100 MG/10 ML UDC PO SCH ×2 (07:30→20:06)
[2020-01-21] MEDS: DEXAMETHASONE SOD PHOSPHATE 10 MG in SYRINGE 0 ML IV SCH (07:41)
[2020-01-21] MEDS: PANTOprazole 40 MG in SYRINGE 0 ML IV SCH ×2 (07:41→20:08)
[2020-01-21] MEDS: METHADONE HCL 5 MG TAB PO SCH (07:42)
[2020-01-21] MEDS: clonazePAM 0.5 MG TAB PO SCH (07:42)
[2020-01-21] MEDS: ENOXAPARIN INJ 40 MG/0.4 ML SYR SQ SCH (07:42)
[2020-01-21 08:58] LABS: Basophils # (auto) 0.01 K/uL (0-0.2); Basophils % (auto) 0.1 %; Hematocrit (blood only) 33.2 % (42-52); Hemoglobin 10.5 g/dL (14.0-18.0); Immature Granulocytes # (auto) 0.51 K/uL (0.00-0.02); Immature Granulocytes % (auto) 4.7 %; Lymphocytes # (auto) 0.74 K/uL (1.2-3.4); Lymphocytes % (auto) 6.8 %; Mean Corpuscular Hgb Conc 31.6 g/dL (32-36); Mean Corpuscular Volume 104.4 fL (80-100); Mean Platelet Volume 10.2 fL (7.4-10.4); Monocytes # (auto) 0.41 K/uL (0.11-0.59); Monocytes % (auto) 3.8 %; Neutrophils # (auto) 9.19 K/uL (1.4-6.5); Neutrophils % (auto) 84.6 %; Nucleated RBC # (auto) 0.06 K/uL (0-0); Nucleated RBC % (auto) 0.5 %; Platelet Count 182 K/uL (130-400); RDW Coefficient of Variation 15.2 % (11.5-14.5); RDW Standard Deviation 58.1 fL (36.4-46.3); Red Blood Count 3.18 M/uL (4.7-6.1); White Blood Count 10.86 K/uL (4.8-10.8)
[2020-01-21] MEDS ORDERED: METHADONE HCL 5 MG TAB PO ONE (09:00)
[2020-01-21] MEDS ORDERED: clonazePAM 0.5 MG TAB PO ONE (09:00)
--- NOTE | 2020-01-21 09:14 | XRay Report ---
XR chest 1V portable HISTORY: Respiratory failure. COMPARISON: Chest 01/20/2020. FINDINGS: No pneumothorax. There are low lung volumes. Small left pleural effusion. Diffuse interstit ial thickening, unchanged. The heart remains mildly enlarged. Nasogastric tube terminates below the d iaphragm. Left jugular central venous catheter terminates at the left brachiocephalic vein. Endotrach eal tube terminates 2 cm from the mehrdad. This is similar to the prior study. Cervical spinal fusion hardware is again noted. Bibasilar densities are also unchanged. IMPRESSION: 1. Satisfactory support line placement. 2. Low lung volumes. 3. Diffuse interstitial thickening and a small left pleural effusion persists. This favors pulmonary edema. ACT 112: Negative or not required by law. Electronically signed by: Angel Granado M.D. 01/21/2020 9:13 AM
[2020-01-21 10:01] LABS: Albumin Globulin Ratio 0.6 (0.9-2); Albumin Level 2.8 gm/dl (3.4-5.0); BUN Creatinine Ratio 30.5 (10-20); Bilirubin,Total 0.4 mg/dl (0.2-1); Calcium 8.1 mg/dl (8.5-10.1); Creatinine Clr Calc Pharmacy 70.4 ml/min; Est GFR (African American) 58.9; Est GFR (Non-African American) 50.8; Globulin 4.5 gm/dl (2.5-4.0); Potassium 4.4 mmol/L (3.5-5.1); Total Protein 7.3 gm/dl (6.4-8.2)
--- NOTE | 2020-01-21 10:48 | Critical Care Progress Note ---
Date of Service January 21, 2020 Assessment & Plan (1) Pneumonia due to COVID-19 virus: Impression: 54-year-old male hospital day 12 for hypoxemic respiratory failure in the setting of novel coronavirus infection. Patient was intubated on January 12 and is currently vent day #9 24-hour events: Patient was stable and we were able to make some slight progress in weaning his FiO2 and PEEP. This morning we tried to decrease his KEIKO ratio to 1-1 however this was poorly tolerated with an decrease in oxygen saturations to the mid to low 80% range. He was placed back on inverse ratio ventilation. We will continue paralytics and sedation at this point time. He did diurese well with Bumex and kidney function has been stable. Recommendations: 1. Neurologic: Sedation better. Continue oral clonazepam and methadone to try and decrease his overall requirement. Continue propofol, fentanyl, and Versed. Was getting by with intermittent paralytics but had to restart cis atracurium. Continue to monitor [id number]. The patient is at high risk for critical illness polyneuropathy and myopathy, however there are no alternatives. He is at risk for anoxic encephalopathy given his episodes of hypoxemia but from a brainstem function appears to be intact. Advised family that we need to monitor him at this point time and see if his lungs can get better before making additional assessments regarding his neurological status. 2. Cardiovascular: Patient maintains hemodynamic stability. Continue to trend closely. Continue attempts at diuresis given the appearance of bilateral pleural effusions but will follow kidney function closely. 3. Pulmonary: Current vent settings are assist control/inverse ratio ventilation with an I:E ratio 1.5:1. Tidal volume 320, respiratory rate 30, PEEP 14 and FiO2 0.5. AB.2 . P plateau 21 with peak airway pressures about 29, compliance has improved today. We will try and target PaO2 greater than 55-60. Wean PEEP per ARDS protocols. Daughter was updated yesterday. She states that the patient had a very terrance course recovering from his prior illness including tracheostomy and she is not sure that he would be willing to undergo another round of aggressive rehabilitation. I advised them that tracheostomy would likely be recommended as I do not anticipate this to be a short course. They again are not sure that he would want that. They would like to get him through the weekend and then reassess early next week to see where were at. We will continue inverse I:E ratio until we are able to get the FiO2 down below 50% and PEEP down below 10 at which point time we will switch him back to conventional ventilation. We will hold on proning him for now as he appears to be doing reasonably well and proning was difficult with his fused neck. Continue dexamethasone for late-phase ARDS. He is at high risk of ventilator complications including pneumothorax but appears to be stable currently. 4. ID: Blood cultures from admission no growth to date. White count increased today. The patient is at risk for secondary infection. Follow fever curve 5. Renal: SCr down to 1.59 today. Continue bumex and follow. Hyponatremia has now corrected. Continue to follow. 6. GI: Continue tube feeding by nutrition. Ok to advance to target as tolerated. PPI for proph. On lactulose, senna for bowel protocol. May need to consider addition of Relistor 7. Endo: The patient did have hypertriglyceridemia likely associated with propofol. We have initiated him on an dextrose and insulin infusion and will recheck triglycerides today. Unfortunately I do not see an alternative to propofol at this point time. He appears to be responding to insulin and glucose infusions 8. Heme-onc: Mild anemia. No evidence of acute blood loss. Hold transfusion for now. Previously noted thrombocytopenia has now corrected. Lovenox for DVT proph 9. Lines: L IJ: 01/12 - line migrating on CXR. Ports continue to function well. May need to rewire in the future but so far doing okay ETT changed 01/16 homa Leo FT Art line: 01/12 Patient remains critically ill. He is at risk of multiorgan system dysfunction and . Family will be updated by phone today (2) Thrombocytopenia: (3) Acute kidney injury superimposed on chronic kidney disease: (4) Hypoxia: Admission and Anticipated Discharge Date Admission Date: January 09, 2020 Subjective Patient remains intubated and sedated. He is also on paralytics Review of Systems Review of Systems: Paralyzed Physical Exam Constitutional: + mechanically ventilated Neck: trachea midline, no thyromegaly Respiratory: normal respiratory effort, lungs clear to auscultation Cardiovascular: RRR, no murmur, no edema Gastrointestinal (Abdomen): normal bowel sounds, soft, nontender, no hepatosplenomegaly Musculoskeletal: Extremities: extremities normal to inspection Skin: no rashes, warm and dry Lymphatic: no cervical lymphadenopathy Results & Data Results & Data ([facility]) Vital Signs (Past 12 Hours) Vital Signs Temp Pulse Resp BP Pulse Ox 01/21/20 09:01 36.7 C 93 H 137/79 87 L 01/21/20 08:03 87 30 H 88 L 01/21/20 08:01 36.9 C 88 115/64 88 L 01/21/20 07:01 36.9 C 87 109/57 L 94 01/21/20 06:00 36.9 C 88 93 01/21/20 05:01 37.0 C 94 H 119/63 92 01/21/20 05:00 36.9 C 98 H 92 01/21/20 04:01 36.9 C 106 H 117/65 90 01/21/20 04:00 36.9 C 105 H 121/67 90 01/21/20 03:01 36.9 C 114 H 120/66 90 01/21/20 03:00 36.9 C 114 H 90 01/21/20 02:45 82 30 H 90 01/21/20 02:01 36.8 C 92 H 119/64 93 01/21/20 02:00 36.8 C 89 93 01/21/20 01:01 36.7 C 93 H 124/67 92 01/21/20 01:00 36.7 C 94 H 92 01/21/20 00:00 36.7 C 96 H 119/65 92 01/20/20 23:00 36.6 C 102 H 121/66 91 01/20/20 22:38 91 H 30 H 91 Laboratory Results 01/21/20 08:49 01/21/20 08:49 Diagnostic Findings X-ray today was independently reviewed. Tubes and lines are in appropriate position. Lung volumes remain low. Coding Level of Care Code Critical Care 1st 30-74 mins Diagnoses Pneumonia due to COVID-19 virus U07.1; J12.89 Thrombocytopenia D69.6 Acute kidney injury superimposed on chronic kidney disease N17.9; N18.9 Hypoxia R09.02 Time Spent (min) 45
[2020-01-21] MEDS: MIDAZOLAM HCL 125 MG/250 ML BAG IV SCH ×2 (11:18→23:08)
[2020-01-21] MEDS: INSULIN REGULAR 250 UNITS in SODIUM CHLORIDE 0.9% 247.5 ML IV SCH (11:19)
[2020-01-21] MEDS: DEXTROSE 10% 1,000 ML IV SCH (11:22)
--- NOTE | 2020-01-21 12:45 | Hospitalist Progress Note ---
Date of Service January 21, 2020 Assessment & Plan (1) Pneumonia due to COVID-19 virus: Pneumonia due to COVID-19 virus with hypoxia-pt declined and was intubated 01/12, with maximum lung protective ventilation remains alive on maximal support, desaturating today to 70-80s, using high PEEP, more sedations Decadron 6 mg IV daily x10 days Convalescent plasma x1, administered Remdesivir IV per protocol Previously, the Patient significantly decompensated throughout the day on 01/13/2020. prior hospitalist had conversation with [facility], Dr. Morales, about the possibility of ECMO therapy. His hypoxia does make transportation significantly risky for him to succumb to his hypoxic issues while traveling. There was discussion about having an emergent team come to begin ECMO in route. [facility] does not have such a team and [place] does not have a team either. Dr. Juarez is in contact with family about plan, prognosis etc he is DNR if he would have cardiac arrest previously the pt did have a prolonged stay at [facility] due to sepsis with osteo of cervical spine, this resulted in tracheostomy and prolonged rehab, that situation is what influenced family decision Ongoing issues with inability to wean O2 needs. Tip Printer call with family 01/19 resulted in ongoing decision against trach. They would like tx to continue through the weekend and then will make further decisions regarding ongoing care if no improvement by early next week. (2) Hypoxia: profound hypoxia, very difficult to venilate has been prone several times, evening of 01/16 he desaturated to 80's then required emergent re-intubation doing better today with reverse ratio with I:E 1.5 to 1, able to decrease FiO2 and PEEP (3) Acute kidney injury superimposed on chronic kidney disease: resolved (4) Thrombocytopenia: Follow with serial laboratories Admission and Anticipated Discharge Date Admission Date: January 09, 2020 Subjective Per nursing, ongoing issues with inability to wean O2 needs. Call with family yesterday resulted in ongoing decision against trach. They would like tx to continue through the weekend and then will make further decisions regarding ongoing care if no improvement by early next week. Review of Systems Review of Systems: Unable to obtain Physical Exam Constitutional: WD/WN, vitals as above (comfortable on vent) Respiratory: no respiratory distress Results & Data Results & Data ([facility]) Vital Signs (Past 12 Hours) Vital Signs Temp Pulse Resp BP Pulse Ox 11/27/20 12:08 97 H 30 H 88 L 01/21/20 12:02 37.0 C 97 H 91 01/21/20 12:01 36.9 C 98 H 141/79 H 88 L 01/21/20 12:00 36.9 C 100 H 84 L 01/21/20 11:01 36.8 C 83 115/63 85 L 01/21/20 10:01 36.7 C 85 121/66 87 L 01/21/20 10:00 36.7 C 87 86 L 01/21/20 09:02 36.7 C 91 H 88 L 01/21/20 09:01 36.7 C 93 H 137/79 87 L 01/21/20 08:03 87 30 H 88 L 01/21/20 08:01 36.9 C 88 115/64 88 L 01/21/20 07:01 36.9 C 87 109/57 L 94 01/21/20 06:00 36.9 C 88 93 01/21/20 05:01 37.0 C 94 H 119/63 92 01/21/20 05:00 36.9 C 98 H 92 01/21/20 04:01 36.9 C 106 H 117/65 90 01/21/20 04:00 36.9 C 105 H 121/67 90 01/21/20 03:01 36.9 C 114 H 120/66 90 01/21/20 03:00 36.9 C 114 H 90 01/21/20 02:45 82 30 H 90 01/21/20 02:01 36.8 C 92 H 119/64 93 01/21/20 02:00 36.8 C 89 93 01/21/20 01:01 36.7 C 93 H 124/67 92 01/21/20 01:00 36.7 C 94 H 92 PG Care Time/CCT Total # of Minutes Spent Total Time Spent with Patient: Total time spent is greater than 50% in coordination of care (as documented) at patient's floor/unit and/or counseling patient: Coding Level of Care Code 80003 Subseq Hosp Care Lvl 2 Diagnoses Pneumonia due to COVID-19 virus U07.1; J12.89 Hypoxia R09.02 Acute kidney injury superimposed on chronic kidney disease N17.9; N18.9 Thrombocytopenia D69.6
[2020-01-21] MEDS: BUMETANIDE 2 MG in SYRINGE 0 ML IV SCH (15:59)
[2020-01-21] MEDS: METHADONE HCL 10 MG TAB PO SCH (20:07)
[2020-01-21] MEDS: clonazePAM 1 MG TAB PO SCH (20:08)
[2020-01-22] MEDS: PEPTAMEN INTENSE VHP 1.0 CAL 1,000 ML BAG OG SCH (00:57)
[2020-01-22] MEDS: VECURONIUM BROMIDE 10 MG in 0.9 % SODIUM CHLORIDE 90 ML IV SCH ×6 (00:57→13:42)
[2020-01-22] MEDS: propofoL 1,000 MG/100 ML VIAL IV SCH ×5 (02:34→19:21)
[2020-01-22] MEDS: ALBUT/IPRATROP 3MG/0.5MG NEB 3 ML VIAL NEB SCH ×6 (04:05→23:19)
[2020-01-22 04:28] LABS: iSTAT Art Bld Gas pCO2 Correct 48 mmHg (35-46); iSTAT Art Bld Gas pH Corrected 7.337 (7.35-7.45); iSTAT Arterial Blood Gas HCO3 26 meg/L (19-24); iSTAT Arterial Blood Gas pCO2 49 mmHg (35-46); iSTAT Arterial Blood Gas pH 7.33 (7.35-7.45); iSTAT Arterial Blood Gas pO2 81 mmHg (80-95); iSTAT Arterial Blood Gas pO2 C 78; iSTAT Carbon Dioxide 27 mmol/L (24-31); iSTAT FiO2 60 %; iSTAT Hematocrit 32 % (42-52); iSTAT Hemoglobin 10.9 g/dl (14.0-18.0); iSTAT Site Art Line; iSTAT Sodium 139 mmol/L (135-144)
[2020-01-22] MEDS: fentaNYL DRIP 1,250 MCG/250 ML BAG IV SCH ×3 (05:07→18:18)
[2020-01-22 05:10] LABS: Basophils # (auto) 0.01 K/uL (0-0.2); Basophils % (auto) 0.1 %; Hematocrit (blood only) 31.4 % (42-52); Hemoglobin 9.8 g/dL (14.0-18.0); Immature Granulocytes # (auto) 0.28 K/uL (0.00-0.02); Immature Granulocytes % (auto) 3.1 %; Lymphocytes # (auto) 0.43 K/uL (1.2-3.4); Lymphocytes % (auto) 4.7 %; Mean Corpuscular Hgb Conc 31.2 g/dL (32-36); Mean Corpuscular Volume 105.7 fL (80-100); Mean Platelet Volume 10.8 fL (7.4-10.4); Monocytes # (auto) 0.93 K/uL (0.11-0.59); Monocytes % (auto) 10.1 %; Neutrophils # (auto) 7.52 K/uL (1.4-6.5); Nucleated RBC # (auto) 0.04 K/uL (0-0); Nucleated RBC % (auto) 0.5 %; Platelet Count 187 K/uL (130-400); RDW Coefficient of Variation 15.3 % (11.5-14.5); RDW Standard Deviation 58.6 fL (36.4-46.3); Red Blood Count 2.97 M/uL (4.7-6.1); White Blood Count 9.17 K/uL (4.8-10.8)
[2020-01-22 05:34] LABS: BUN Creatinine Ratio 30.7 (10-20); Calcium 7.8 mg/dl (8.5-10.1); Est GFR (African American) 58.5; Est GFR (Non-African American) 50.4; Magnesium 2.8 mg/dl (1.8-2.4); Potassium 3.9 mmol/L (3.5-5.1)
[2020-01-22 05:42] LABS: Phosphorus 2.6 mg/dl (2.5-4.9)
[2020-01-22] MEDS: LACTULOSE SYRUP 20 GM/30 ML UDC PO SCH (08:07)
[2020-01-22] MEDS: ENOXAPARIN INJ 40 MG/0.4 ML SYR SQ SCH (08:08)
[2020-01-22] MEDS: METHADONE HCL 10 MG TAB PO SCH ×2 (08:08→20:01)
[2020-01-22] MEDS: DOCUSATE SODIUM SYRUP 100 MG/10 ML UDC PO SCH (08:08)
[2020-01-22] MEDS: SENNOSIDES 8.8 MG/5 ML UDC PO SCH (08:08)
[2020-01-22] MEDS: clonazePAM 1 MG TAB PO SCH ×2 (08:08→20:01)
[2020-01-22] MEDS: DEXAMETHASONE SOD PHOSPHATE 10 MG in SYRINGE 0 ML IV SCH (08:09)
[2020-01-22] MEDS: BUMETANIDE 2 MG in SYRINGE 0 ML IV SCH ×2 (08:09→16:24)
[2020-01-22] MEDS: ZINC SULFATE 220 MG CAPSULE PO SCH (08:09)
[2020-01-22] MEDS: PANTOprazole 40 MG in SYRINGE 0 ML IV SCH (08:09)
--- NOTE | 2020-01-22 08:25 | XRay Report ---
XR chest 1V portable HISTORY: 54 years-old Male f/u follow-up study in a patient with acute respiratory failure COMPARISON: Chest radiograph 01/21/2020 TECHNIQUE: Portable AP view of the chest FINDINGS: Cardiac silhouette is mildly enlarged. Hypoinflation. Endotracheal tube overlies the midline, 2.0 cm superior to the mehrdad. Enteric tube courses below the diaphragm with distal tip outside the field-of -view. Bilateral reticular opacities redemonstrated. Small pleural effusions with persistent linear b ibasilar densities favoring atelectasis. Degenerative changes of the shoulders and spine. Cervical sp inal fusion hardware. IMPRESSION: 1. Lines and tubes as above. 2. Hypoinflation with persistent reticular opacities suggestive of pulmonary edema. 3. Small pleural effusions with bibasilar densities suggestive of atelectasis. ACT 112: Negative or not required by law. The above report was generated using voice recognition software. It may contain grammatical, syntax o r spelling errors. Electronically signed by: Cabrera Mcgowan M.D. 01/22/2020 8:24 AM
--- NOTE | 2020-01-22 10:48 | Critical Care Progress Note ---
Date of Service January 22, 2020 Assessment & Plan (1) Pneumonia due to COVID-19 virus: Impression: 54-year-old male hospital day 13 for hypoxemic respiratory failure in the setting of novel coronavirus infection. Patient was intubated on January 12 and is currently vent day #10 24-hour events: Has been maintained on inverse ratio. Hospital now out of cis atracurium so has been initiated on vecuronium infusion. Unable to wean sedation much. Any attempts at moving the patient or making any adjustments in his ventilator resulted in significant oxygen desaturation with a prolonged recovery time. He is remained hemodynamically stable. He is tolerating the glucose and insulin infusion used for hypertriglyceridemia. Patient is now having high-volume stools related to his bowel regiment and Leilani shield was placed. Recommendations: 1. Neurologic: Sedation better. Continue oral clonazepam and methadone to try and decrease his overall requirement. Continue propofol, fentanyl, and Versed. Now on a constant vecuronium infusion. Continue to monitor [id number]. The patient is at high risk for critical illness polyneuropathy and myopathy, however there are no alternatives. He is at risk for anoxic encephalopathy given his episodes of hypoxemia but from a brainstem function appears to be intact. Advised family that we need to monitor him at this point time and see if his lungs can get better before making additional assessments regarding his neurological status. Given his elevated triglycerides, will see if we can wean his propofol off and maintain him on fentanyl and Versed infusions. His hemodynamics are marginal to allow for Precedex 2. Cardiovascular: Patient maintains hemodynamic stability. Continue to trend closely. Continue attempts at diuresis given the appearance of bilateral pleural effusions but will follow kidney function closely. 3. Pulmonary: Current vent settings are assist control/inverse ratio ventilation with an I:E ratio 1.5:1. Tidal volume 320, respiratory rate 30, PEEP 14 and FiO2 0.6. AB.33/49/81/26. P plateau 21 with peak airway pressures about 29, compliance has improved today. We will try and target PaO2 greater than 55-60. Wean PEEP per ARDS protocols. Daughter was updated today. She states that the patient had a very terrance course recovering from his prior i llness including tracheostomy and she is not sure that he would be willing to undergo another round of aggressive rehabilitation. I advised them that tracheostomy would likely be recommended as I do not anticipate this to be a short course. They again are not sure that he would want that. They would like to get him through the weekend and then reassess early next week to see where were at. We will continue inverse I:E ratio until we are able to get the FiO2 down below 50% and PEEP down below 10 at which point time we will switch him back to conventional ventilation. We will hold on proning him for now as he appears to be doing reasonably well and proning was difficult with his fused nec k. Continue dexamethasone for late-phase ARDS. He is at high risk of ventilator complications including pneumothorax but appears to be stable currently. Patient's tracheostomy may be somewhat difficult given his current respiratory status and history of prior trach. 4. ID: Blood cultures from admission no growth to date. White count back down today. The patient is at risk for secondary infection. Follow fever curve 5. Renal: SCr stable. Fluid balance now positive, likely secondary to dextrose and insulin infusions. Increase bumex and follow. Hyponatremia has now corrected. Continue to follow. 6. GI: Continue tube feeding by nutrition. Bowel function now resumed and necessitated placement of a Leilani shield discontinue senna and Colace and decrease lactulose to 5 mg daily 7. Endo: The patient did have hypertriglyceridemia likely associated with propofol. We have initiated him on an dextrose and insulin infusion and will recheck triglycerides in a.m. It had been improving. Unfortunately I do not see an alternative to propofol at this point time. We will see if we can wean the propofol off. 8. Heme-onc: Mild anemia. No evidence of acute blood loss. Hold transfusion for now. Previously noted thrombocytopenia has now corrected. Lovenox for DVT proph 9. Lines: L IJ: 01/12 - line migrating on CXR. Ports continue to function well. May need to rewire in the future but so far doing okay ETT changed 01/16 homa Leo FT Art line: 01/12 Patient remains critically ill. He is at risk of multiorgan system dysfunction and . 45 minutes critical care time exclusive of procedures family updated by phone today. They are contemplating whether or not the patient would want continued aggressive care after 2 weeks of hospitalization. (2) Thrombocytopenia: (3) Acute kidney injury superimposed on chronic kidney disease: (4) Hypoxia: Admission and Anticipated Discharge Date Admission Date: January 09, 2020 Subjective Remains intubated sedated and paralyzed Review of Systems Review of Systems: Unobtainable due to endotracheal tube Intubated sedated and paralyzed Physical Exam Constitutional: + mechanically ventilated Neck: trachea midline, no thyromegaly Respiratory: normal respiratory effort, lungs clear to auscultation Cardiovascular: RRR, no murmur, no edema Gastrointestinal (Abdomen): normal bowel sounds, soft, nontender, no hepatosplenomegaly Musculoskeletal: Extremities: extremities normal to inspection Skin: no rashes, warm and dry Lymphatic: no cervical lymphadenopathy Results & Data Results & Data ([facility]) Vital Signs (Past 12 Hours) Vital Signs Temp Pulse Resp BP Pulse Ox 01/22/20 07:08 69 30 H 90 01/22/20 06:00 36.2 C L 72 93 01/22/20 05:01 36.5 C 64 103/62 94 01/22/20 05:00 36.5 C 62 94 01/22/20 04:07 64 30 H 94 01/22/20 04:01 36.5 C 64 105/64 94 01/22/20 04:00 36.5 C 66 121/59 L 94 01/22/20 03:01 36.6 C 66 105/60 94 01/22/20 03:00 36.6 C 66 94 01/22/20 02:01 36.7 C 71 100/61 93 01/22/20 02:00 36.7 C 69 93 01/22/20 01:01 36.8 C 75 104/58 L 93 01/22/20 01:00 36.8 C 76 94 01/22/20 00:01 36.9 C 73 109/59 L 95 01/22/20 00:00 36.9 C 71 110/55 L 97 01/21/20 23:59 73 30 H 95 01/21/20 23:01 37.0 C 78 107/59 L 94 01/21/20 23:00 37.0 C 74 94 I/O: +1341 Laboratory Results 01/22/20 04:10 01/22/20 04:10 AB.33: 49: 81: 26 Calcium 7.8, mag 2.8, Phos 2.6 Triglycerides yesterday down to 356 Coding Level of Care Code Critical Care 1st 30-74 mins Diagnoses Pneumonia due to COVID-19 virus U07.1; J12.89 Thrombocytopenia D69.6 Acute kidney injury superimposed on chronic kidney disease N17.9; N18.9 Hypoxia R09.02 Time Spent (min) 45
[2020-01-22] MEDS: MIDAZOLAM HCL 125 MG/250 ML BAG IV SCH (11:20)
[2020-01-22] MEDS: DEXTROSE 10% 1,000 ML IV SCH (11:48)
[2020-01-22] MEDS: INSULIN REGULAR 250 UNITS in SODIUM CHLORIDE 0.9% 247.5 ML IV SCH (12:08)
[2020-01-22] MEDS: CISATRACURIUM BESYLATE 40 MG in 0.9 % SODIUM CHLORIDE 80 ML IV SCH ×6 (13:52→22:32)
[2020-01-22] MEDS ORDERED: STAT IV Infusion **Titration per Protocol STA (18:28)
--- NOTE | 2020-01-22 21:53 | Hospitalist Progress Note ---
Date of Service January 22, 2020 Assessment & Plan (1) Pneumonia due to COVID-19 virus: Pneumonia due to COVID-19 virus with hypoxia-pt declined and was intubated 01/12, with maximum lung protective ventilation remains alive on maximal support, desaturating today to 70-80s, using high PEEP, more sedations Decadron 6 mg IV daily x10 days Convalescent plasma x1, administered Remdesivir IV per protocol Previously, the Patient significantly decompensated throughout the day on 01/13/2020. prior hospitalist had conversation with [facility], Dr. Morales, about the possibility of ECMO therapy. His hypoxia does make transportation significantly risky for him to succumb to his hypoxic issues while traveling. There was discussion about having an emergent team come to begin ECMO in route. [facility] does not have such a team and [place] does not have a team either. Dr. Juarez is in contact with family about plan, prognosis etc he is DNR if he would have cardiac arrest previously the pt did have a prolonged stay at [facility] due to sepsis with osteo of cervical spine, this resulted in tracheostomy and prolonged rehab, that situation is what influenced family decision Ongoing issues with inability to wean O2 needs. Staff Training And Development Manager call with family 01/19 resulted in ongoing decision against trach. They would like tx to continue through the weekend and then will make further decisions regarding ongoing care if no improvement by early next week. No change in plan today. May consider terminal extubation if no improvedment, (2) Hypoxia: profound hypoxia, very difficult to venilate has been prone several times, evening of 01/16 he desaturated to 80's then required emergent re-intubation doing better today with reverse ratio with I:E 1.5 to 1, able to decrease FiO2 and PEEP (3) Acute kidney injury superimposed on chronic kidney disease: resolved (4) Thrombocytopenia: Follow with serial laboratories Admission and Anticipated Discharge Date Admission Date: January 09, 2020 Subjective Patient is intubated Review of Systems Review of Systems: Unobtainable due to cognitive status Physical Exam Physical Exam: Lying in bed intubated. Results & Data Results & Data ([facility]) Vital Signs (Past 12 Hours) Vital Signs Temp Pulse Resp BP Pulse Ox 01/22/20 20:04 95 H 30 H 95 01/22/20 20:00 70 195/76 H 01/22/20 16:01 36.6 C 87 125/61 93 01/22/20 16:00 80 01/22/20 15:42 80 30 H 94 01/22/20 15:01 36.5 C 66 105/60 96 01/22/20 14:01 36.4 C L 68 112/64 95 01/22/20 13:12 73 30 H 94 01/22/20 13:01 36.3 C L 73 121/65 95 01/22/20 12:01 36.2 C L 78 116/62 93 01/22/20 12:00 36.2 C L 77 93 01/22/20 11:01 36.1 C L 80 132/63 90 01/22/20 10:46 79 30 H 89 L 01/22/20 10:01 36.0 C L 78 129/66 90 PG Care Time/CCT Total # of Minutes Spent Total Time Spent with Patient: Total time spent is greater than 50% in coordination of care (as documented) at patient's floor/unit and/or counseling patient: Coding Level of Care Code 26133 Subseq Hosp Care Lvl 2 Diagnoses Pneumonia due to COVID-19 virus U07.1; J12.89 Hypoxia R09.02 Acute kidney injury superimposed on chronic kidney disease N17.9; N18.9 Thrombocytopenia D69.6
[2020-01-23] MEDS: fentaNYL DRIP 1,250 MCG/250 ML BAG IV SCH ×3 (00:21→12:58)
[2020-01-23] MEDS: MIDAZOLAM HCL 125 MG/250 ML BAG IV SCH ×4 (00:21→13:51)
[2020-01-23] MEDS: CISATRACURIUM BESYLATE 40 MG in 0.9 % SODIUM CHLORIDE 80 ML IV SCH ×5 (01:33→12:42)
[2020-01-23] MEDS: ALBUT/IPRATROP 3MG/0.5MG NEB 3 ML VIAL NEB SCH ×3 (04:26→11:58)
[2020-01-23 04:57] LABS: iSTAT Art Bld Gas pCO2 Correct 54 mmHg (35-46); iSTAT Art Bld Gas pH Corrected 7.373 (7.35-7.45); iSTAT Arterial Blood Gas HCO3 32 meg/L (19-24); iSTAT Arterial Blood Gas pCO2 55 mmHg (35-46); iSTAT Arterial Blood Gas pH 7.37 (7.35-7.45); iSTAT Arterial Blood Gas pO2 68 mmHg (80-95); iSTAT Arterial Blood Gas pO2 C 67; iSTAT Carbon Dioxide 33 mmol/L (24-31); iSTAT FiO2 50 %; iSTAT Hematocrit 35 % (42-52); iSTAT Hemoglobin 11.9 g/dl (14.0-18.0); iSTAT Potassium 4.2 mmol/L (3.3-5.0); iSTAT Site Art Line; iSTAT Sodium 139 mmol/L (135-144)
[2020-01-23 05:05] LABS: Hematocrit (blood only) 35.8 % (42-52); Hemoglobin 11.3 g/dL (14.0-18.0); Mean Corpuscular Hemoglobin 32.6 pg (25-34); Mean Corpuscular Hgb Conc 31.6 g/dL (32-36); Mean Corpuscular Volume 103.2 fL (80-100); Mean Platelet Volume 10.5 fL (7.4-10.4); Platelet Count 202 K/uL (130-400); RDW Coefficient of Variation 15.2 % (11.5-14.5); RDW Standard Deviation 56.9 fL (36.4-46.3); Red Blood Count 3.47 M/uL (4.7-6.1); White Blood Count 12.89 K/uL (4.8-10.8)
[2020-01-23] MEDS: DEXTROSE 10% 1,000 ML IV SCH (05:21)
[2020-01-23 05:38] LABS: Albumin Level 2.8 gm/dl (3.4-5.0); BUN Creatinine Ratio 36.6 (10-20); Calcium 8.1 mg/dl (8.5-10.1); Creatinine Clr Calc Pharmacy 90.1 ml/min; Est GFR (African American) 76.9; Est GFR (Non-African American) 66.3; Magnesium 2.5 mg/dl (1.8-2.4)
[2020-01-23 05:40] LABS: Albumin Globulin Ratio 0.6 (0.9-2); Bilirubin,Total 0.4 mg/dl (0.2-1); Globulin 4.7 gm/dl (2.5-4.0); Phosphorus 2.9 mg/dl (2.5-4.9); Total Protein 7.5 gm/dl (6.4-8.2)
[2020-01-23 05:51] LABS: ALC (manual) 0.57 K/uL (1.2-3.4); ANC (manual) 11.76 K/uL (1.4-6.5); Lymphocytes # (manual) 0.57 K/uL (1.2-3.4); Lymphocytes % (manual) 4.4 %; Monocytes # (manual) 0.57 K/uL (0.11-0.59); Monocytes % (manual) 4.4 %; Neutrophils # (manual) 11.76 K/uL (1.4-6.5); Neutrophils % (manual) 91.2 %; Polychromasia 1+
[2020-01-23] MEDS: propofoL 1,000 MG/100 ML VIAL IV SCH (06:06)
[2020-01-23] MEDS: DEXAMETHASONE SOD PHOSPHATE 10 MG in SYRINGE 0 ML IV SCH (07:34)
[2020-01-23] MEDS: BUMETANIDE 2 MG in SYRINGE 0 ML IV SCH (07:34)
[2020-01-23] MEDS: ENOXAPARIN INJ 40 MG/0.4 ML SYR SQ SCH (07:35)
[2020-01-23] MEDS: METHADONE HCL 10 MG TAB PO SCH (07:37)
[2020-01-23] MEDS: clonazePAM 1 MG TAB PO SCH (07:37)
--- NOTE | 2020-01-23 07:54 | XRay Report ---
SINGLE VIEW CHEST CLINICAL HISTORY: Respiratory failure. Intubation. FINDINGS: An AP, portable, upright chest radiograph is compared to study dated 01/22/2020. The examin ation is degraded by portable technique and apical lordotic positioning. An endotracheal tube, a left internal jugular central venous catheter, and an enteric tube are in place. The cardiomediastinal si lhouette is unremarkable. There are low lung volumes with bibasilar atelectasis. Small pleural effusi ons are suspected. No pneumothorax is seen. Mild interstitial airspace opacities are similar to previ ous. The skeletal structures are osteopenic. The bony thorax is grossly intact. Fusion hardware is se en in the lower cervical spine. IMPRESSION: 1. Lines and tubes as above. 2. No significant change from yesterday. 3. Low lung volumes, interstitial airspace opacities, and small pleural effusions. ACT 112: Negative or not required by law. Electronically signed by: Eddie Austin M.D. 01/23/2020 7:53 AM
[2020-01-23] MEDS ORDERED: LACTULOSE SYRUP 10 GM/15 ML BTL 960 ML PO SCH (09:00)
--- NOTE | 2020-01-23 11:21 | Critical Care Progress Note ---
Date of Service January 23, 2020 Assessment & Plan (1) Pneumonia due to COVID-19 virus: Impression: 54-year-old male hospital day 14 for hypoxemic respiratory failure in the setting of novel coronavirus infection. Patient was intubated on January 12 and is currently vent day #11 24-hour events: Attempted to wean propofol off yesterday due to hypert riglyceridemia and to see where we are from a sedation standpoint. He became significantly hypertensive and desaturated requiring escalation of his ventilator strategy. He remains on paralytics. Discussed with pharmacy and we do have a supply of cis atracurium so this was added back. We have been able to make some progress in his ventilator settings and he is now down to a PEEP of 8 and FiO2 of 0.5. Family continues to struggle with what the patient would desire in terms of long-term care. Recommendations: 1. Neurologic: Continues to require deep sedation, any efforts at lightening his sedation resulted in tachypnea, ventilator dyssynchrony, and hypoxemia. Continue oral clonazepam and methadone to try and decrease his overall requir ement. Continue propofol, fentanyl, and Versed. Now on a constant Nimbex infusion. Continue to monitor [id number] and will attempt to wean paralytics today. The patient is at high risk for critical illness polyneuropathy and myopathy, however there are no alternatives. He is at risk for anoxic encephalopathy given his episodes of hypoxemia but from a brainstem function appears to be intact. Advised family that we need to monitor him at this point time and see if his lungs can get better before making additional assessments regarding his neurological status. We were unable to come off propofol so we will continue insulin and dextrose to try and treat his triglyceride levels. These will continue to be trended every other day. His blood pressure is improved today so I think it may be reasonable to try Precedex 2. Cardiovascular: Patient maintains hemodynamic stability. Continue to trend closely. He was negative almost 3 L yesterday with improved serum creatinine so we will continue diuretics today. 3. Pulmonary: Current vent settings are assist control/inverse ratio ventilation with an I:E ratio 1.5:1. Tidal volume 320, respiratory rate 30, PEEP 8 and FiO2 0. 5. AB.37/55/68/32. P plateau 21 with peak airway pressures about 29, compliance has improved today. We will try and target PaO2 greater than 55-60. Wean PEEP per ARDS protocols. Continue dexamethasone for late-phase ARDS. I think the patient is making some progress with regards to his ARDS and hypoxemic respiratory failure. I conducted a phone conversation with the patient's daughter, son, and ex-. They are struggling with what the patient would want in the long-term. I advised them that I believe that his current respiratory illness may be survivable however I do recommend tracheostomy and it would require long-term rehab. The patient's family is concerned that his quality of life prior to this illness was quite poor as he suffered from chronic pain issues and neuropathy and previously rehabbed with a tracheostomy and apparently expressed a desire to not pursue those interventions again. I advised him that this current illness would not likely improve any of the chronic medical conditions or quality of life issues that he was suffering with previously but again I am not convinced that his lung injury is not surviva ble. 4. ID: Blood cultures from admission no growth to date. White count intermittently up and down. The patient is at risk for secondary infection. Follow fever curve 5. Renal: SCr improved. Fluid balance negative last 24 hours. Continue bumex and follow. Hyponatremia has now corrected. Continue to follow. 6. GI: Continue tube feeding by nutrition. Bowel function now resumed and necessitated placement of a Leilani shield. Given the high narcotic dose, will continue lactulose 5 mg daily and follow 7. Endo: The patient did have hypertriglyceridemia likely associated with propofol. We have initiated him on an dextrose and insulin infusion and will recheck triglycerides in a.m. It had been improving. We will see if initiation of Precedex is successful in improving the patient's level of sedation to the point that paralytics and propofol could be discontinued 8. Heme-onc: Mild anemia. No evidence of acute blood loss. Hold transfusion for now. Previously noted thrombocytopenia has now corrected. Lovenox for DVT proph 9. Lines: L IJ: 01/12 - line migrating on CXR. Ports continue to function well. May need to rewire in the future but so far doing okay ETT changed 01/16 homa Leo FT Art line: 01/12 Patient remains critically ill. He is at risk of multiorgan system dysfunction and . 79 minutes critical care time exclusive of procedures family updated by phone today. They are contemplating whether or not the patient would want continued aggressive care after 2 weeks of hospitalization. I presented all options to them today again. I advised them that if they want to continue aggressive care for this patient I would recommend tracheostomy at this point time as he is almost 2 weeks on the ventilator. They would like to visit amongst themselves today to determine whether or not they want to pursue tracheostomy or transition to comfort care measures. (2) Thrombocytopenia: (3) Acute kidney injury superimposed on chronic kidney disease: (4) Hypoxia: Admission and Anticipated Discharge Date Admission Date: January 09, 2020 Subjective Remains intubated sedated and paralyzed Review of Systems Review of Systems: Intubated sedated and paralyzed Physical Exam Constitutional: + mechanically ventilated Neck: trachea midline, no thyromegaly Respiratory: normal respiratory effort, lungs clear to auscultation Cardiovascular: RRR, no murmur, no edema Gastrointestinal (Abdomen): normal bowel sounds, soft, nontender, no hepatosplenomegaly Musculoskeletal: Extremities: extremities normal to inspection Skin: no rashes, warm and dry Lymphatic: no cervical lymphadenopathy Results & Data Results & Data ([facility]) Vital Signs (Past 12 Hours) Vital Signs Temp Pulse Resp BP Pulse Ox 01/23/20 08:00 82 01/23/20 07:25 81 30 H 91 01/23/20 05:00 36.9 C 106 H 91 01/23/20 04:02 36.9 C 92 H 183/98 H 94 01/23/20 04:01 102 H 30 H 92 01/23/20 04:00 36.9 C 98 H 254/96 H 94 01/23/20 03:01 36.9 C 96 H 177/91 H 95 01/23/20 03:00 36.9 C 98 H 95 01/23/20 02:01 36.8 C 91 H 158/87 H 92 01/23/20 02:00 36.8 C 91 H 92 01/23/20 01:01 36.7 C 99 H 145/79 H 92 01/23/20 01:00 36.7 C 100 H 92 01/23/20 00:34 84 30 H 92 01/23/20 00:01 36.7 C 96 H 122/66 90 01/23/20 00:00 36.7 C 93 H 180/82 H 90 Laboratory Results 01/23/20 04:38 01/23/20 04:38 Diagnostic Findings CXr today independently reviewed. Tubes and lines OK. Lung volumes remain low with small effusions. Coding Level of Care Code Critical Care 1st 30-74 mins Diagnoses Pneumonia due to COVID-19 virus U07.1; J12.89 Thrombocytopenia D69.6 Acute kidney injury superimposed on chronic kidney disease N17.9; N18.9 Hypoxia R09.02 Time Spent (min) 79 Comment 79 minutes critical care time. Please code [id number] and [id number]
[2020-01-23] MEDS ORDERED: STAT IV Infusion **Titration per Protocol STA (11:46)
[2020-01-23] MEDS ORDERED: DEXMEDETOMIDINE HCL 200 MCG in SODIUM CHLORIDE 0.9% 48 ML IV SCH (12:00)
[2020-01-23] MEDS ORDERED: LORazepam 0.5 MG/1 ML VIAL IV PRN (12:36)
[2020-01-23] MEDS ORDERED: ONDANSETRON INJ 2 MG/ML 2 ML VIAL IV PRN (12:36)
[2020-01-23] MEDS: INSULIN REGULAR 250 UNITS in SODIUM CHLORIDE 0.9% 247.5 ML IV SCH (12:45)
--- NOTE | 2020-01-23 15:27 | Death Pronouncement Note ---
Date of Service January 23, 2020 Pronouncement Note Admission Date Admission Date: January 09, 2020 Date and Time of Date of : 01/23/20 Time of : 14:01 Contributing Factors (1) Pneumonia due to COVID-19 virus: (2) Thrombocytopenia: (3) Acute kidney injury superimposed on chronic kidney disease: (4) Hypoxia: Hospital Course Hospital Course: As noted in discharge summary Additional Data Confirmation of : no pulse, no respirations, no heart sounds and pupils fixed and dilated Family: contacted Attending/PCP notified?: Yes Attending physician: Joaquin Vasquez Was code activated?: No Autopsy requested?: No fraud examiner notified?: No Advance directives: No Coding Level of Care Code None Diagnoses Pneumonia due to COVID-19 virus U07.1; J12.89 Thrombocytopenia D69.6 Acute kidney injury superimposed on chronic kidney disease N17.9; N18.9 Hypoxia R09.02
--- NOTE | 2020-01-23 15:27 | Discharge Summary ---
Date of Service January 23, 2020 Admission HPI Per Admitting Provider The patient is a 54-year-old male with a past medical history including closure of PFO, hypertension, osteoarthritis who presents with symptoms as noted above. Work-up in the emergency department included a COVID-19 test which was positive, platelets 103, hemoglobin 13.6, creatinine 1.82 with baseline 1.52, and a temperature of 101.7. Principal Diagnosis pneumonia due to covid 19 Discharge Exam as noted on certificate Discharge Data Allergies Allergy/AdvReac Type Severity Reaction Status Date / Time furosemide Allergy Severe SCROTAL Verified 01/09/20 20:51 SWELLING naproxen Allergy Mild SWELLING Verified 01/09/20 20:51 ofloxacin Allergy Unknown Unknown Verified 01/09/20 20:51 oxacillin Allergy Unknown Unknown Verified 01/09/20 20:51 Consultations 01/09/20 19:33 ED Decision to Admit Stat 01/09/20 22:36 Consult Case Management - Discharge Planning Routine 01/13/20 09:49 Consult Pulmonology Stat 01/13/20 09:50 Consult Anesthesiology Stat 01/13/20 11:25 Consult Case Management - Discharge Planning Routine Ordered Studies 01/13/20 11:25 US point of care ultrasound Routine Hospital Course (1) Pneumonia due to COVID-19 virus: Pneumonia due to COVID-19 virus with hypoxia-pt declined and was intubated 01/12, with maximum lung protective ventilation remains alive on maximal support, desaturating today to 70-80s, using high PEEP, more sedations Decadron 6 mg IV daily x10 days Convalescent plasma x1, administered Remdesivir IV per protocol Previously, the Patient significantly decompensated throughout the day on 01/13/2020. prior hospitalist had conversation with [facility], Dr. Morales, about the possibility of ECMO therapy. His hypoxia does make transportation significantly risky for him to succumb to his hypoxic issues while traveling. There was discussion about having an emergent team come to begin ECMO in route. [facility] does not have such a team and [facility] does not have a team either. Dr. Juarez is in contact with family about plan, prognosis etc he is DNR if he would have cardiac arrest previously the pt did have a prolonged stay at [facility] due to sepsis with osteo of cervical spine, this resulted in tracheostomy and prolonged rehab, that situation is what influenced family decision Ongoing issues with inability to wean O2 needs. Handkerchief Folder call with family 01/19 resulted in ongoing decision against trach. They would like tx to continue through the weekend and then will make further decisions regarding ongoing care if no improvement by early next week. On day of : The family had an opportunity to review care as documented in my previous note from today. After careful consideration, they are convinced that the patient would not want to continue with aggressive resuscitative efforts. They understand that his current respiratory illness may be survivable but they are all uniform in agreement that he would not want to participate in the rehab that would be necessitated to recover. In addition his quality of life previous to this illness was poor and they understand that his current illness would likely not improve the quality of life. They request that the patient be terminally extubated and placed on palliative care/comfort care measures. They understand that he likely will pass away. They also understand that his lung disease may potentially be recoverable but again they are convinced that he would not want to continue mechanical ventilation beyond this point. Initiation of comfort care will be somewhat complicated. Will need to discontinue paralytics and ensure Traina folders are back before extubating the patient. We will also discontinue propofol. No need to initiate Precedex. Fentanyl and Versed will be used as needed for air hunger, dyspnea, and palliative measures. The patient will not be extubated until the paralytics and propofol have worn off. Patient on 01/23/20 at 14:01 (2) Hypoxia: profound hypoxia, very difficult to venilate has been prone several times, evening of 01/16 he desaturated to 80's then required emergent re-intubation doing better today with reverse ratio with I:E 1.5 to 1, able to decrease FiO2 and PEEP (3) Acute kidney injury superimposed on chronic kidney disease: resolved (4) Thrombocytopenia: Follow with serial laboratories Total Time Total Time Spent Total Time Spent (In Minutes): 15 Discharge Plan Discharge Items Patient Disposition: Coding Level of Care Code D/C Day Management <30 mins Diagnoses Pneumonia due to COVID-19 virus U07.1; J12.89 Hypoxia R09.02 Acute kidney injury superimposed on chronic kidney disease N17.9; N18.9 Thrombocytopenia D69.6 Time Spent (min) 20
== END 2020-01-23 15:49 | disposition expired | DRG 207 ==
LOC: ED 15:45 → 2S 20:32 → SUATTDRO 20:32 → 2S 22:02 → 2E 01-13 11:16 → 1E 01-17 09:23